=== PATIENT | male | born 1945 | race Caucasian/White ===

== ENCOUNTER 2017-08-20 13:25 | Outpatient (CLI) | payer MEDICARE ==
--- NOTE | 2017-08-20 16:08 | RAD ---
LUMBAR SPINE TWO VIEWS: Comparison: 04-18-14 History: Lumbar spinal stenosis. Low back pain. Prior back surgery. FINDINGS: Pedicle screws are again noted at L4-5. Grade II spondylolisthesis at L4-5 with loss of disc height a nd disc implant does not appear significantly changed. Fracture of the left L5 pedicle screw is uncha nged when compared to films dating back 12-23-12. The degenerative disc changes at the other lumbar lev els also appear stable. IMPRESSION: Post op and degenerative change of the lumbar spine appear stable. POS: YENNY
--- NOTE | 2017-08-20 16:39 | MRI ---
MRI LUMBAR SPINE WITH AND WITHOUT CONTRAST: Date: 08/20/17 HISTORY: Lumbar fusion. Lumbar spinal stenosis. Low back pain with pain radiating down both legs, right greate r than left. COMPARISON: None. TECHNIQUE: Lumbar spine MRI is performed without intravenous Gadolinium administration. Multisequential, multipl mitch imaging is performed. FINDINGS: There are bilateral transpedicular screws at L4 and L5. There is associated metallic susceptibility a rtifact. There is persistent 1.0 cm of anterolisthesis of L4 upon L5. There is 3.0 mm of retrolisthes is of T12 upon L1, 4.0 mm of retrolisthesis of L1 upon L2, and 5.0 mm of retrolisthesis of L2 upon L3 . There is no significant STIR hyperintensity to suggest edema or ligamentous injury of the lumbar ve rtebra. There is mil edema involving the thoracic vertebra, similar to the previous examination and l ikely on the basis of degenerative change. Symmetric signal intensity of the psoas muscles. Small amount of bilateral perinephric fluid is noted. T2 hyperintensity of the left and right renal p yonis are identified. Conus medullaris terminates at the superior aspect of L1. Stable hemangioma at the L2 level. On the postcontrast images, there is no abnormal enhancement with regards to the vertebral bodies. No abnormal enhancement with regards to the thecal sac. Laminectomy defect at L3-L4, L4-L5, and L5-S1 is identified. There is no abnormal enhancement with regard to the cauda equina and conus medullaris. T11-T12: No significant central canal stenosis or foraminal narrowing. T12-L1: No high grade central canal stenosis. Moderate right foraminal narrowing. Left neural foramen is gambino nt. L1-L2: Generalized disc bulge results in mild central canal stenosis. Severe right and mild left foraminal n arrowing. L2-L3: Desiccation with mild loss of disc space height. There are posterior decompressive laminectomy defect s. No high grade central canal stenosis. Severe bilateral neural foraminal narrowing. No significant scar formation. L3-L4: Mild loss of disc space height. There is generalized disc bulge and posterior element hypertrophy. Th ere is moderate central canal stenosis. Posterior decompressive laminectomy changes are noted. On the postcontrast images, evaluation is limited by metallic susceptibility artifact. There is severe bilateral foraminal narrowing. L4-L5: Disc prosthesis is identified. There are decompressive laminectomy changes. Evaluation is limited by metallic susceptibility artifact and patient motion. There appears to be at least moderate, if not mo derate to severe, central canal stenosis. Limited evaluation of the neural foramina due to metallic s usceptibility artifact. L5-S1: There is generalized disc bulge. Limited evaluation of the central spinal canal due to metallic susce ptibility artifact. There appears to be at least mild central canal stenosis. Mild bilateral foramina l narrowing is suspected. Evaluation is limited by metallic susceptibility artifact. IMPRESSION: Extensive postoperative and degenerative changes of the lumbar spine as above. Limited evaluation due to metallic susceptibility artifact. Myelogram may be beneficial. POS: YENNY
== END 2017-08-20 13:26 | disposition home or self-care (01) ==
LOC: TBSIIMAG 13:25
PROVIDERS: ATTEND Neurological Surgery
DX: M48.061 Spinal stenosis, lumbar region without neurogenic claudication (principal); M47.896 Other spondylosis, lumbar region; Z98.890 Other specified postprocedural states
CPT/HCPCS: 72100; 72158

== ENCOUNTER 2017-09-04 06:58 | Day surgery (SDC) | payer MEDICARE ==
[2017-09-03 09:46] VITALS: BMI 29.0
[~2017-09-04 06:58] MED LIST: FLU VACC TS2017-18 (>65YR) 0.5 ML SYRINGE IM ONE
[2017-09-04 08:43] VITALS: BP 140/87; TEMP 98.2
--- NOTE | 2017-09-04 10:22 | RAD ---
TWO VIEWS LUMBAR SPINE: Indication: History of spinal stenosis. Comparison: 08-20-17 FINDINGS: The post-surgical change consistent with laminectomy at L5 and L3 is similar. The fractured pedicle s crew on the left at L5 is stable. The pedicle screw on the right at L4 and L5 demonstrates periimplan t loosening suspicious for loosening which is similar to the appearance on prior exam. Interconnectin g rods posterolateral appear similar. The grade I anterolisthesis of L4 on L5 with interbody bone cag e is similar. There is multilevel advanced disc degenerative disease at L2-3 and L3-4 as well as L1-2 . There is a left total hip prosthesis in place. There is degenerative left knee osteoarthrosis of th e lumbar spine. IMPRESSION: 1. Stable advanced disc degenerative facet osteoarthritic changes of the lumbar spine with post-opera tive changes as above. 2. Instrumentation as above. POS: YENNY
--- NOTE | 2017-09-04 10:24 | RAD ---
LUMBAR SPINAL MYELOGRAM: INDICATION: Lumbar stenosis. TECHNIQUE: Informed consent was obtained. Preprocedure inside sales executive images were performed. A site overlying the left L1-2 interlaminar space was marked. This site was prepped and draped in the usual sterile fashion. Buffered 1% Lidocaine was administered to the overlying subcutaneous tissues. Under fluoroscopic eusebio dance, a 22-gauge spinal needle was advanced into the level of the thecal sac. There is spontaneous return of normal-appearing CSF fluid. Following this, there was 10 cc administration of an Isovue 20 0M contrast solution. The internal stylette was replaced and the needle was removed. The patient to lerated the procedure without difficulty. IMPRESSION: Successful lumbar myelogram. POS: MERI
--- NOTE | 2017-09-04 16:30 | CT ---
CT LUMBAR MYELOGRAM 09/04/17 INDICATION: History of lumbar spinal stenosis. COMPARISON: MRI of the lumbar spine with and without contrast dated 08/20/17 and lumbar spinal radiographs dated 09/04/17. TECHNIQUE: Multiple CT images were obtained of the lumbar spine following intrathecal administration of Isovue 2 00M solution. Please see the separately dictated lumbar myelogram for details concerning the injectio n technique. Axial, coronal and sagittal reformatted images were constructed from the raw data. Comparisons are made with the exams listed above. FINDINGS: As seen on the comparison examination is postoperative change consistent with laminectomies at L3 and L5. There is posterolateral lumbar interbody fusion constructs spanning L4 through L5. The left pedi lang screw at L5 is fractured and displaced from the interconnecting simba. The remaining pedicle screw s appear intact. There is grade II anterolisthesis of L4 on L5. There is slight retrolisthesis of L2 on L3 and L1 on L 2. Conus is seen to terminate at T12-L1. There is vacuum disc phenomenon seen at the T12-L1, L1-2, L2-3, L4-5 and L5-S1 likely related to some ongoing disc instability. There is an intervertebral body cage at L4-5. No definite bridging osseous fusion is seen involving t he bone graft at L4-5. The visualized retroperitoneum demonstrates moderate calcification involving the abdominal aorta. The re is a 1.7 cm cyst involving the superior pole of the left kidney. At L5-S1, there is a broad based disc osteophyte complex. There is advanced facet osteoarthrosis cosme cing severe left and moderate to severe right neural foraminal narrowing. There are also laminectomy changes at L5. At L4-L5, the grade II anterolisthesis of L4 in addition to the broad based pseudobulge and loss of d isc space height at L4-5 induces severe central canal narrowing with minimal passage of the intrathec al contrast beyond this level. There is severe bilateral neural foraminal narrowing. At L3-4, there are laminectomy changes at L3. There is minimal intrathecal contrast at the L3 level. There is severe central canal narrowing seen from facet hypertrophy, ligamentum flavum hypertrophy an d extrathecal fibrosis at L3-4. There is moderate to severe bilateral neural foraminal narrowing. At the L2-3 level, there is a broad based disc osteophyte complex inducing mild central canal narrowi ng with severe bilateral neural foraminal narrowing. At L1-2, there is a broad based disc osteophyte complex and ligamentum flavum hypertrophy inducing mi ld central canal narrowing with moderate right and mild left neural foraminal narrowing. At T12-L1, there is a disc osteophyte complex inducing mild central canal narrowing with mild bilater al neural foraminal narrowing. IMPRESSION: 1. Grade II anterolisthesis at L4-L5 inducing severe central canal narrowing. The anterolisthesi s in addition to the loss of disc space height induces severe bilateral neural foraminal narrowing. 2. Severe central canal narrowing at L3-4 due to broad based disc osteophyte complex, ligamentum flavum hypertrophy, facet hypertrophy and probable epidural scarring. There is also moderate to skylar re neural foraminal narrowing at L3-4 bilaterally. 3. Severe bilateral neural foraminal narrowing at L2-3. 4. Mild central canal narrowing at L1-2 with moderate right neural foraminal narrowing. 5. Moderate to severe right and severe left neural foraminal narrowing at L5-S1. 6. Fractured left L5 pedicle screw. 7. No appreciable osseous incorporation of bone graft posterolaterally at L4-5. POS: YENNY
[2017-09-04] MEDS ORDERED: Iopamidol-M 200 41% 20 ML VIAL ONE (17:35)
== END 2017-09-04 10:00 | disposition home or self-care (01) ==
LOC: RAD 06:58
PROVIDERS: ATTEND Neurological Surgery
PROC: B01B1ZZ Fluoroscopy of Spinal Cord using Low Osmolar Contrast (ICD-10-PCS; principal; 2017-09-04)
DX: M48.061 Spinal stenosis, lumbar region without neurogenic claudication (principal); E78.00 Pure hypercholesterolemia, unspecified; I48.91 Unspecified atrial fibrillation; M81.0 Age-related osteoporosis without current pathological fracture; Z96.611 Presence of right artificial shoulder joint; Z79.1 Long term (current) use of non-steroidal anti-inflammatories (NSAID); Z79.82 Long term (current) use of aspirin; Z79.899 Other long term (current) drug therapy; Z87.891 Personal history of nicotine dependence; Z80.0 Family history of malignant neoplasm of digestive organs
CPT/HCPCS: 62304; 72100; 72132

== ENCOUNTER 2017-10-01 11:13 | Outpatient (CLI) | payer MEDICARE ==
[2017-10-01 12:39] LABS: #Basophils 0.1 thou/uL (0.0-0.2); #Eosinphils 0.3 thou/uL (0.0-0.7); #Lymphocytes 1.7 thou/uL (1.20-3.40); #Monocytes 0.9 thou/uL (0.11-0.59); #Neutrophils 5.3 thou/uL (1.40-6.50); %Basophils 0.8 % (0.0-1.0); %Eosinophils 3.5 % (0.0-10.0); %Lymphocytes 20.3 % (21.0-51.0); %Monocytes 10.6 % (0.0-10.0); %Neutrophils 64.8 % (42.0-75.0); Hemoglobin 14.2 g/dL (14.0-18.0); Mean Corpuscular HGB CONC 34.6 g/dL (32.0-36.0); Mean Corpuscular Hemoglobin 33.6 pg (27.0-31.0); Mean Corpuscular Volume 97.3 fl (80.0-94.0); Mean Platelet Volume 6.4 fL (7.4-10.4); Platelet Count 264 thou/uL (130-400); RBC Distribution Width 10.9 % (11.5-14.5); Red Blood Cell (RBC) Count 4.23 mill/uL (4.70-6.10); White Blood Cell (WBC) Count 8.2 thou/uL (4.8-10.8)
[2017-10-01 12:59] LABS: Anion Gap 11 mmol/L (10-20); BUN (Urea Nitrogen) 22 mg/dL (8.4-25.7); Calc. Creatinine Clearance 0 mL/min (70-130); Calcium 9.8 mg/dL (7.8-10.44); Carbon Dioxide 23 mmol/L (23-31); Chloride 102 mmol/L (98-107); Estimated GFR-MDRD 87; Glucose 100 mg/dL (83-110); Potassium 4.3 mmol/L (3.5-5.1); Sodium 132 mmol/L (136-145)
== END 2017-10-01 11:14 | disposition home or self-care (01) ==
LOC: LABBT 11:13
PROVIDERS: ATTEND Neurological Surgery
DX: Z01.818 Encounter for other preprocedural examination (principal)
CPT/HCPCS: 80048; 85025; 93005; 93010

== ENCOUNTER 2017-10-01 11:15 | Inpatient (IN) | payer MEDICARE ==
[2017-10-01 11:25] VITALS: BMI 28.1
[2017-10-07] MEDS ORDERED: Sodium Chloride 0.9% 10 ML ONE (06:28)
[2017-10-07] MEDS ORDERED: Ketamine 50 MG/ML VIAL ONE (07:06)
[2017-10-07] MEDS ORDERED: Fentanyl 250 MCG/5 ML VIAL ONE (07:12)
[2017-10-07] MEDS ORDERED: ePHEDrine/0.9% NaCl/PF SYRINGE 50 mg/10 ml ONE ×2 (08:37→14:58)
[2017-10-07] MEDS ORDERED: Phenylephrine 10 MG/NS 250 ML 250 ML ONE (08:50)
[2017-10-07] MEDS ORDERED: SUGAMMADEX SODIUM 500 MG/5 ML VIAL ONE (09:30)
[2017-10-07] MEDS ORDERED: Promethazine HCl 25 MG/ML VIAL IM PRN ×2 (09:50→11:58)
[2017-10-07] MEDS ORDERED: Ketorolac Tromethamine 30 MG/ML VIAL IVP PRN (09:50)
[2017-10-07] MEDS ORDERED: Meperidine HCl/PF 25 MG/ML VIAL SLOW IVP PRN (09:50)
[2017-10-07] MEDS ORDERED: Ondansetron HCl/PF 4 MG/2 ML Vial IVP PRN (09:50)
[2017-10-07] MEDS ORDERED: Promethazine HCl 25 MG/ML VIAL SLOW IVP PRN (09:50)
[2017-10-07] MEDS ORDERED: traMADol HCl 50 MG TAB PO PRN ×2 (11:58)
[2017-10-07] MEDS ORDERED: Promethazine HCl 12.5 MG SUPP PR PRN (11:58)
[2017-10-07] MEDS ORDERED: Mag-Al 1200 mg/1200 mg/30 ML UDCUP PO PRN (11:58)
[2017-10-07] MEDS ORDERED: Milk Of Magnesia 30 ML UDCUP PO PRN (11:58)
[2017-10-07] MEDS ORDERED: Promethazine 25 MG TAB PO PRN (11:58)
[2017-10-07] MEDS ORDERED: tiZANidine HCl 4 MG TAB PO PRN (11:58)
[2017-10-07] MEDS ORDERED: Morphine 4 MG/ML Carpuject SLOW IVP PRN (11:58)
[2017-10-07] MEDS ORDERED: Ondansetron HCl/PF 4 MG/2 ML Vial IM PRN (11:58)
[2017-10-07] MEDS ORDERED: HYDROcodone/Acetaminophen 10/325 mg Tablet PO PRN (11:58)
[2017-10-07] MEDS ORDERED: Methocarbamol 500 MG TAB PO PRN (12:10)
[2017-10-07] MEDS ORDERED: HYDROcodone/Acetaminophen 5/325 mg Tablet PO PRN ×2 (12:12)
[2017-10-07] MEDS: HYDROcodone/Acetaminophen 10/325 mg Tablet PO PRN ×3 (12:14→22:02)
--- NOTE | 2017-10-07 12:47 | OP ---
DATE OF PROCEDURE: 10/07/2017 SURGEON: Eliu Purdy M.D. HAND ENDBAND CUTTER: Johann Bhagat M.D. PROCEDURE: Removal of hardware left L4-5, exploration of spinal fusion L4-5, L4-5 laminectomy, cance llous bone chips, BMP, and posterolateral arthrodesis L4-5. PROCEDURE IN DETAIL: The patient was brought into the operating room, intubated. He was rolled in t he prone position on gel-filled chest rolls. The previous incision was reopened and the L3-L5 region was explored. As expected, the left side at L4-5 hardware was loose. Left L5 screw head was broken . The screw head, rods, and nuts were removed. The left L4 screw was similarly removed. We explore d the spinal fusion. It did not seem to be solid, although the hardware at right L4-5 was not mobile . It was also encased in bone. Next, we performed additional efforts at laminectomy and the lateral recess left L4-5, which also was successful. We visualized all neural elements in this area and a c omplete decompression was certainly achieved. Next, we placed a combination of BMP and cancellous leeann ne chips on the bilateral posterolateral surfaces for the purpose of arthrodesis. Vancomycin powder was applied and the wound was then closed in anatomic layers.
[2017-10-07] MEDS: CEFAZOLIN/Water 2 GM/20 ML SYRINGE SLOW IVP SCH ×2 (14:10→22:04)
[2017-10-07] MEDS ORDERED: Lidocaine 1% PF 5 ML VIAL ONE (14:58)
[2017-10-07] MEDS ORDERED: Propofol 200 MG/20 ML VIAL ONE (14:58)
[2017-10-07] MEDS ORDERED: Glycopyrrolate 0.2 MG/ML 5 ML SYRINGE ONE (14:58)
[2017-10-07] MEDS ORDERED: PHENYLEPHRINE-NS 100 MCG/ML 10 ML SYRINGE ONE (14:58)
--- NOTE | 2017-10-07 18:46 | PDOC.PN ---
- Subjective Encounter Start Date: 10/07/17 Encounter Start Time: 18:30 Subjective: Consult for med mgmt s/p lumbar hardware removal and subsequent laminectomy -: arthrodesis. Hx reviewed, labs, radiographs. Feels well overall and no CP -: SOB. - Objective MAR Reviewed: Yes Vital Signs & Weight: Vital Signs (12 hours) Temp Pulse Resp BP Pulse Ox 10/07/17 16:00 97.7 F 65 18 136/85 94 L 10/07/17 10:30 97.8 F 66 18 143/83 H 96 Weight Weight 185 lb 6.526 oz Additional Labs: Laboratory Tests 10/01/17 10/01/17 12:15 12:15 WBC 8.2 Hgb 14.2 Hct 41.2 L Plt Count 264 Sodium 132 L Potassium 4.3 Chloride 102 Carbon Dioxide 23 Anion Gap 11 BUN 22 Creatinine 0.86 Glucose 100 Calcium 9.8 EKG Reviewed by me: Yes (NSR with bradycardia, 1st degree AVB) Phys Exam - Physical Examination Constitutional: NAD HEENT: PERRLA, oral pharynx no lesions Neck: no JVD, supple Respiratory: no wheezing, clear to auscultation bilateral Cardiovascular: RRR Gastrointestinal: soft, non-tender, no distention, positive bowel sounds Musculoskeletal: no edema, pulses present Neurological: normal sensation, moves all 4 limbs Psychiatric: A&O x 3 Skin: normal turgor, cap refill <2 seconds Dx/Plan (1) HTN (hypertension) Code(s): I10 - ESSENTIAL (PRIMARY) HYPERTENSION Status: Chronic Qualifiers: Hypertension type: essential hypertension Qualified Code(s): I10 - Essential (primary) hypertension Comment: Resume home BP regimen and monitor clinically (2) Atrial fibrillation Code(s): I48.91 - UNSPECIFIED ATRIAL FIBRILLATION Status: Resolved Comment: Current SR, continue Tambocor 50mg BID (3) DJD (degenerative joint disease), lumbar Code(s): M47.816 - SPONDYLOSIS W/O MYELOPATHY OR RADICULOPATHY, LUMBAR REGION Status: Chronic (4) Neurogenic claudication due to lumbar spinal stenosis Status: Chronic Comment: s/p hardware removal, laminectomy and arthrodesis - Plan PT/OT, long term care social worker, out of bed/ambulate, DVT proph w/SCDs Stable overall -: Continue home BP regimen -: Continue Lisinopril, Amlodipine, Atenolol -: Continue Tambocor 50mg BID -: Pain control * Thank you for the consult. Will continue to follow with primary service.
[2017-10-07] MEDS: Dorzolamide HCl/Timolol Maleate 2%/0.5% Ophth Soln 10 ml Bottle EA EYE SCH (20:43)
[2017-10-07] MEDS: Lisinopril 20 MG TAB PO SCH (20:44)
[2017-10-07] MEDS ORDERED: Gabapentin 300 MG CAP PO SCH (21:00)
[2017-10-07] MEDS ORDERED: Atorvastatin Calcium 10 MG TAB PO SCH (21:00)
[2017-10-07] MEDS ORDERED: [UNRECOGNIZED DRUG - OTHER] PO SCH (21:00)
[2017-10-07] MEDS: Flecainide 50 MG TAB PO SCH (21:43)
[2017-10-08 04:34] VITALS: TEMP 97.7
[2017-10-08] MEDS ORDERED: Amlodipine 10 MG TAB PO SCH (09:00)
[2017-10-08] MEDS ORDERED: Multivitamin W/ Minerals 1 TAB PO SCH (09:00)
[2017-10-08] MEDS ORDERED: Ascorbic Acid 500 mg Chewable Tablet PO SCH (09:00)
[2017-10-08] MEDS ORDERED: Calcium Carbonate + Vit D 1 TAB PO SCH (09:00)
[2017-10-08] MEDS ORDERED: Atenolol 50 MG TAB PO SCH (09:00)
[2017-10-08] MEDS ORDERED: Loratadine 10 MG TAB PO SCH (09:00)
[2017-10-08] MEDS ORDERED: Fish Oil 1,000 MG CAP PO SCH (09:00)
[2017-10-08] MEDS ORDERED: Hydrochlorothiazide 25 MG TAB PO SCH (09:00)
[2017-10-08] MEDS ORDERED: POTASSIUM 99 MG PO SCH (09:00)
[2017-10-08 09:23] VITALS: BP 101/71
[2017-10-08] MEDS: Lisinopril 20 MG TAB PO SCH (09:40)
[2017-10-08] MEDS: Flecainide 50 MG TAB PO SCH (09:48)
[2017-10-08] MEDS: Dorzolamide HCl/Timolol Maleate 2%/0.5% Ophth Soln 10 ml Bottle EA EYE SCH (09:48)
[2017-10-08] MEDS: HYDROcodone/Acetaminophen 10/325 mg Tablet PO PRN (10:44)
== END 2017-10-08 11:54 | disposition home or self-care (01) | DRG 460 ==
LOC: SURG A 10-07 05:51
PROVIDERS: ADMIT Neurological Surgery; ATTEND Neurological Surgery
PROC: 0SG0071 Fusion of Lumbar Vertebral Joint with Autologous Tissue Substitute, Posterior Approach, Posterior Column, Open Approach (ICD-10-PCS; principal; 2017-10-07)
PROC: 0QP004Z Removal of Internal Fixation Device from Lumbar Vertebra, Open Approach (ICD-10-PCS; 2017-10-07)
PROC: 00NY0ZZ Release Lumbar Spinal Cord, Open Approach (ICD-10-PCS; 2017-10-07)
DX: M48.062 Spinal stenosis, lumbar region with neurogenic claudication (principal); I48.91 Unspecified atrial fibrillation; T84.226A Displacement of internal fixation device of vertebrae, initial encounter; M43.16 Spondylolisthesis, lumbar region; I10 Essential (primary) hypertension; E78.5 Hyperlipidemia, unspecified; M47.816 Spondylosis without myelopathy or radiculopathy, lumbar region
CPT/HCPCS: 76001; A4216; C1713; G8978-GP-CK; G8979-GP-CK; G8980-GP-CK; J0131; J2001; J2704; J3010; J3370; J3490

== ENCOUNTER 2017-10-21 15:22 | Outpatient (CLI) | payer MEDICARE ==
--- NOTE | 2017-10-21 15:43 | RAD ---
TWO VIEWS OF THE LUMBAR SPINE: Date: 10-21-17 Comparison: 09-04-17 History: Evaluate spine following surgery. Lumbar stenosis with neurogenic claudication. FINDINGS: Vertically oriented cutaneous aleshia overlie the L2, L3, L4 and L5 levels. Since the prior examinati on, left sided post-operative hardware has been removed at the L4 level. A portion of a pedicle screw at L5 persists on the left. There is a right sided L4 and L5 pedicle screw with a vertically oriente d interlocking simba. There is multilevel prominent disc space narrowing seen throughout the lumbar spine with prominent ri ght lateral osteophyte formation at L2-3 and L3-4. Lateral imaging demonstrate anterolisthesis of L4 on L5 measuring approximately 1.9 cm, slightly more prominent than on the prior exam. There is a punctate radiopaque density posterior to the L4 vertebr al body which is associated with a previously noted disc device. Bilateral laminectomy changes are present at L2 through L5 levels. IMPRESSION: Post-operative and degenerative changes within the lumbar spine as detailed above. POS: YENNY
== END 2017-10-21 15:23 | disposition home or self-care (01) ==
LOC: TBSIIMAG 15:22
PROVIDERS: ATTEND Physician Assistant
DX: M48.062 Spinal stenosis, lumbar region with neurogenic claudication (principal); M47.816 Spondylosis without myelopathy or radiculopathy, lumbar region; Z98.890 Other specified postprocedural states
CPT/HCPCS: 72100

== ENCOUNTER 2017-11-26 13:33 | Outpatient (CLI) | payer MEDICARE ==
--- NOTE | 2017-11-26 15:29 | RAD ---
LUMBAR SPINE 2 VIEWS: Date: 11/26/17 HISTORY: Low back pain. Surgery. COMPARISON: 10/21/17. FINDINGS: Five lumbar-type vertebrae are again demonstrated with leftward convex rotatory scoliotic curvature. Right pedicle screws at the L4-5 level with vertical simba and a left L5 pedicle screw remain in place. Spondylolisthesis at the postoperative level is stable. One of the metallic markers associated with interbody fusion material again projects over the posterior inferior aspect of the L4 vertebral body. Mild chronic compression of the L2 and L3 vertebral bodies is stable. Disc space narrowing and minima l degenerative retrolisthesis are again evident at the L1-2 and L2-3 levels. Prominent osteophytosis. Calcification overlies the arterial structures. IMPRESSION: 1. Stable postoperative and degenerative changes of the lumbar spine. One of the metallic markers as sociated with interbody fusion material remains projected over the posterior inferior aspect of the L 4 vertebral body. 2. Atherosclerosis. POS: [facility]
== END 2017-11-26 13:34 | disposition home or self-care (01) ==
LOC: TBSIIMAG 13:33
PROVIDERS: ATTEND Neurological Surgery
DX: M48.061 Spinal stenosis, lumbar region without neurogenic claudication (principal); M47.896 Other spondylosis, lumbar region; I70.90 Unspecified atherosclerosis; Z98.1 Arthrodesis status
CPT/HCPCS: 72100

== ENCOUNTER 2018-03-16 12:54 | Outpatient (CLI) | payer MEDICARE ==
--- NOTE | 2018-03-16 15:04 | RAD ---
LUMBAR SPINE TWO VIEWS: Date: 03-16-18 Comparison: 11-26-17 History: Lumbar radiculopathy, prior lumbar spine surgery. FINDINGS: There is an incompletely imaged left hip arthroplasty. Two punctate metallic densities project over t he L4-5 intervertebral disc space anteriorly, stable. There is also a punctate metallic density proje cting posterior to the L4 vertebral body. These findings are unchanged. This suggests a disc prosthes is with posterior displacement, stable. A portion of the pedicle screw is present on the left at L5. L4 and L5 pedicle screws with a vertically oriented interlocking simba are noted on the left. There is anterolisthesis of L4 on L5 measuring 1.7 cm. There is multilevel degenerative change within the lumbar spine with disc space narrowing and degenerative endplate sclerosis from L1-2 through L5- S1. No acute osseous abnormality. There is atherosclerotic calcification of the abdominal aorta. IMPRESSION: Stable post-operative and degenerative changes of the lumbar spine as detailed above. As before, meta llic marker associated with disc device projects posterior to the L4 vertebral body. POS: YENNY
== END 2018-03-16 12:55 | disposition home or self-care (01) ==
LOC: TBSIIMAG 12:54
PROVIDERS: ATTEND Neurological Surgery
DX: M47.26 Other spondylosis with radiculopathy, lumbar region (principal); Z98.1 Arthrodesis status
CPT/HCPCS: 72100

== ENCOUNTER 2019-08-12 07:08 | Day surgery (SDC) | payer MEDICARE ==
[2019-08-11 10:26] VITALS: BMI 28.1
--- NOTE | 2019-08-12 09:02 | RAD ---
LUMBAR MYELOGRAM: COMPARISON: 09/04/2017. HISTORY: Lumbar stenosis. Low back pain. EXPOSURE: 0.7 minutes. 2744.0 mGy*^m2. FINDINGS: Two-view turbo electric operator lumbar spine radiograph demonstrates bilateral transpedicular screws at L5 and a right -sided transpedicular screw at L4. There is periarticular lucency with regards to the right transpedicular screw at L4. Vertical stabilization simba along the right aspect of the L4-L5 level. A s crew fragment is noted at the L5 level. Disc prosthesis at L4-L5. Multilevel vacuum disc phenomenon and loss of disc space height. There is no evidence of a fracture. Spondylolisthesis: L2-L3: 2 mm retrolisthesis. L4-L5: 1.2 cm of anterolisthesis. Successful lumbar puncture for intrathecal contrast administration. A total of 9 cc of Isovue-M 200 c ontrast was administered at the L3-L4 level. There are no immediate or postprocedure complications. TECHNIQUE: Consent was obtained to perform a lumbar puncture for intrathecal contrast administration. The patien t's back was evaluated. The L3-L4 level was deemed appropriate. The skin was prepped and draped in sterile fashion. 1% lidocaine, buffered with sodium bicarbonate was used for local anesthesia. Under fluoroscopic guidance, a 22-gauge spinal needle was advanced into the CSF space. There is flow of CSF to the hub of the needle. A total of 9 cc of Isovue M200 contrast was administered intrathecally. Patient tolerated the procedure well. No immediate or postprocedure complications. IMPRESSION: Successful lumbar puncture for lumbar myelogram. Refer to separate lumbar CT report for further detai l. Transcribed Date/Time: 08/12/2019 9:28 AM
--- NOTE | 2019-08-12 10:00 | CT ---
POSTMYELOGRAM LUMBAR SPINE CT: HISTORY: Low back pain. Lumbar stenosis. COMPARISON: 09/04/2017. FINDINGS: Visualized paraspinal soft tissues are unremarkable. There are postoperative changes in the posterior midline paraspinal muscles. Atherosclerosis of a nonaneurysmal aorta. Visualized solid organs are grossly unremarkable. Exophytic hypodensity emanating from the right renal cortex has an attenuation coefficient of 14 Houn sfield units and may represent a complex cyst. The lesion is noted on previous exam and is unchanged in size. Currently, the lesion measures 1.5 x 1.4 cm. Five lumbar-type vertebrae. Lumbar spine vertebral body height is maintained. There is no fracture. S table mild leftward curvature lumbar spine Vacuum disc phenomenon from T12-L1 down to L5-S1. Note, there is a disc prosthesis at the L4-L5 level . Unilateral right-sided transpedicular screw with periarticular lucency at L4. Bilateral transpedicula r screws at L5. The left screw does not have an associated stabilization simba. The screw at L5 is a fragment of a screw. Conus medullaris terminates at the mid L1 level. Spondylolisthesis: L1-L2: 2.2 mm of retrolisthesis. L2-L3: 4.6 mm of retrolisthesis. L3-L4: 3.4 mm of anterolisthesis. There do appear to be bilateral pars defects at L4. There is vacuum joint phenomenon involving both sacroiliac joints. Visualized bony pelvis and sacrum are unremarkable. Neural foramina of the sacrum are preserved. T11-T12: No significant central canal stenosis or significant neural foraminal narrowing. T12-L1: Vacuum disc phenomenon. Broad-based disc bulge with resultant minimal central canal stenosis. Moderate to severe right neural foraminal narrowing. Moderate left foraminal narrowing. L1-L2: Vacuum disc phenomenon. Broad-based disc bulge results in mild central canal stenosis. Severe right neural foraminal narrowing. Moderate left foraminal narrowing. L2-L3: Vacuum disc phenomenon. Broad-based disc osteophyte complex. Mild central canal stenosis. Felipa re bilateral neural foraminal narrowing. L3-L4: Posterior laminectomy defect. Broad-based disc bulge and posterior element hypertrophy result in severe central canal stenosis. Moderate to severe bilateral neural foraminal narrowing. L4-L5: Disc prosthesis. Posterior laminectomy defect. Presumed postsurgical scar tissue at the operat chip site. No high-grade central canal stenosis. There may be some narrowing of the right subareolar zone secondary to disc osteophyte complex. Moderate to severe bilateral neural foraminal narrowing. L5-S1: Vacuum disc phenomenon. Moderate to severe narrowing of the thecal sac predominantly due to ep idural lipomatosis. There is encroachment upon the left and right subareolar zone secondary to broad-based disc osteophyte complex. No significant obscuration of either traversing S1 nerve root. M ild to moderate right neural foraminal narrowing. Moderate to severe left neural foraminal narrowing. IMPRESSION: 1. Varying degrees of central canal stenosis and neural foraminal narrowing as described above. 2. Post surgical changes as described above. 3. Vacuum disc phenomenon as described above. 4. Spondylolisthesis as detailed above. Transcribed Date/Time: 08/12/2019 10:22 AM
[2019-08-12] MEDS ORDERED: Iopamidol-M 200 41% 20 ML VIAL ONE (11:56)
== END 2019-08-12 09:55 | disposition home or self-care (01) ==
LOC: RAD 07:08
PROVIDERS: ATTEND Neurological Surgery
PROC: B02B1ZZ Computerized Tomography (CT Scan) of Spinal Cord using Low Osmolar Contrast (ICD-10-PCS; principal; 2019-08-12)
DX: M48.062 Spinal stenosis, lumbar region with neurogenic claudication (principal); M43.16 Spondylolisthesis, lumbar region; M47.816 Spondylosis without myelopathy or radiculopathy, lumbar region; I10 Essential (primary) hypertension; I48.91 Unspecified atrial fibrillation; E78.00 Pure hypercholesterolemia, unspecified; Z79.82 Long term (current) use of aspirin; Z79.899 Other long term (current) drug therapy
CPT/HCPCS: 62304; 72132; Q9966

== ENCOUNTER 2019-08-30 10:38 | Outpatient (CLI) | payer MEDICARE ==
--- NOTE | 2019-08-30 11:38 | RAD ---
LUMBAR SPINE FOUR VIEWS WEIGHT BEARING: HISTORY: Lumbar spondylosis. FINDINGS: Five lumbar type vertebrae. Mild leftward curvature of the lumbar spine. Unilateral right-sided trans pedicular screw at L4-L5 and a left-sided transpedicular screw at L5. There is a right-sided vertical stabilization simba. There appears to be perihardware lucency involving the right screw at L4 and L5. Laminectomy defect at L3, L4 and L5. Disc prosthesis at L4-L5. Neutral position: L4-L5: 1.1 mm of anterolisthesis. Flexion: 1.4 mm of anterolisthesis. Extension: 1.3 mm of anterolisthesis. Severe loss of disc space height and osteophyte formation throughout the lumbar spine. The visualized sacrum and bony pelvis are intact. Left hip arthroplasty is noted. Atherosclerosis of a nonaneurysmal aorta. IMPRESSION: 1. Grade 2 anterolisthesis of L4 upon L5 which worsens upon extension and flexion. 2. Perihardware lucency involving fusion hardware as described above. Transcribed Date/Time: 08/30/2019 12:43 PM
== END 2019-08-30 10:39 | disposition home or self-care (01) ==
LOC: BICRAD 10:38
PROVIDERS: ATTEND Nurse Practitioner Family
DX: M43.06 Spondylolysis, lumbar region (principal); Z98.1 Arthrodesis status
CPT/HCPCS: 72120

== ENCOUNTER 2020-03-29 05:21 | Outpatient (CLI) | payer MEDICARE, OTHER ==
[2020-03-29 13:56] LABS: #Basophils 0.1 thou/uL (0.0-0.2); #Eosinphils 0.2 thou/uL (0.0-0.7); #Lymphocytes 1.7 thou/uL (1.20-3.40); #Neutrophils 6.2 thou/uL (1.40-6.50); %Eosinophils 2.7 % (0.0-10.0); %Lymphocytes 18.3 % (21.0-51.0); %Monocytes 10.4 % (0.0-10.0); %Neutrophils 67.6 % (42.0-75.0); Hemoglobin 15.9 g/dL (14.0-18.0); Mean Corpuscular HGB CONC 33.8 g/dL (32.0-36.0); Mean Corpuscular Hemoglobin 33.1 pg (27.0-31.0); Mean Corpuscular Volume 97.7 fL (78.0-98.0); Mean Platelet Volume 7.4 fL (7.4-10.4); Platelet Count 305 thou/uL (130-400); RBC Distribution Width 11.2 % (11.5-14.5); Red Blood Cell (RBC) Count 4.81 mill/uL (4.70-6.10); White Blood Cell (WBC) Count 9.1 thou/uL (4.8-10.8)
[2020-03-29 14:02] LABS: Bacteria/HPF None Seen HPF (None Seen); Bilirubin Negative (Negative); Blood, Urine Negative (Negative); Clarity Clear (Clear); Glucose, Urine (Dipstick) Normal (Negative); Ketone, Urine Negative (Negative); Leukocyte Negative Leu/uL (Negative); Nitrite Negative (Negative); Protein, Urine (Dipstick) 20 mg/dL (Neg-Trace); RBC/HPF 0-3 HPF (0-3); Specific Gravity, Urine 1.025 (1.002-1.036); Squamous Epithelial None Seen HPF (0-3); Urobilinogen Normal mg/dL (Less than 2); WBC/HPF 0-3 HPF (0-3); pH, Urine 7.5 (5.0-9.0)
[2020-03-29 14:03] LABS: Prothrombin Time 13.6 sec (12.0-14.7)
[2020-03-29 14:09] LABS: Anion Gap 14 mmol/L (10-20); BUN (Urea Nitrogen) 26 mg/dL (8.4-25.7); Calc. Creatinine Clearance 0 mL/min (70-130); Calcium 10.1 mg/dL (7.8-10.44); Carbon Dioxide 24 mmol/L (23-31); Chloride 103 mmol/L (98-107); Estimated GFR-MDRD Greater than 90; Glucose 116 mg/dL (83-110); Potassium 4.4 mmol/L (3.5-5.1); Sodium 137 mmol/L (136-145)
--- NOTE | 2020-03-30 09:13 | EKG ---
Test Reason : Blood Pressure : / mmHG Vent. Rate : 066 BPM Atrial Rate : 250 BPM P-R Int : 000 ms QRS Dur : 090 ms QT Int : 446 ms P-R-T Axes : 000 -51 035 degrees QTc Int : 467 ms Atrial fibrillation Left anterior fascicular block Abnormal ECG When compared with ECG of 01-OCT-2017 12:13, Atrial fibrillation has replaced Sinus rhythm Confirmed by JASON MCGOVERN, SJosefa ([id number]) on 03/30/2020 9:13:18 AM Referred By: Confirmed By:DR. Madhavi GOMEZ MD
[2020-03-30 12:52] LABS: SARS-CoV-2 MS2 Positive; SARS-CoV-2 N Gene Negative; SARS-CoV-2 S Gene Negative; SARS-CoV-2 orf1ab Negative
== END 2020-03-29 05:22 | disposition home or self-care (01) ==
LOC: LABBT 05:21
PROVIDERS: ATTEND Orthopaedic Surgery
DX: Z01.818 Encounter for other preprocedural examination (principal); Z11.59 Encounter for screening for other viral diseases; T84.091A Other mechanical complication of internal left hip prosthesis, initial encounter
CPT/HCPCS: 80048; 81001; 85025; 85610; 93005; U0003; 87635; 93010

== ENCOUNTER 2020-03-29 11:15 | Inpatient (IN) | payer MEDICARE ==
[2020-03-27 13:50] VITALS: BMI 27.3
[2020-04-03] MEDS ORDERED: Tranexamic Acid 1,000 MG/10 ML VIAL ONE (10:11)
[2020-04-03] MEDS ORDERED: Vancomycin 1.5 GRAM/300 ML BAG ONE (10:11)
[2020-04-03] MEDS ORDERED: Sodium Chloride 0.9% 100 ML ONE (10:11)
[2020-04-03] MEDS ORDERED: Lidocaine 2% Jelly 5 ML TUBE ONE (11:48)
[2020-04-03] MEDS ORDERED: Fentanyl 100 MCG/2 ML VIAL ONE (11:48)
[2020-04-03] MEDS ORDERED: Bupivacaine 0.25% HCL 30 ML VIAL ONE (12:08)
[2020-04-03] MEDS ORDERED: Acetaminophen 500 MG TAB PO PRN (12:38)
[2020-04-03] MEDS ORDERED: Ondansetron PF 4 MG/2 ML Vial IVP PRN ×2 (12:45→12:52)
[2020-04-03] MEDS ORDERED: Promethazine HCl 25 MG/ML VIAL IM PRN ×2 (12:45→12:52)
[2020-04-03] MEDS ORDERED: Naloxone HCl 0.4 mg/ml Vial IVP PRN (12:45)
[2020-04-03] MEDS ORDERED: Bupivacaine 0.25% 10 ML VIAL EPIDURAL PRN (12:45)
[2020-04-03] MEDS ORDERED: fentaNYL Citrate/PF 500 MCG, Bupivacaine 10 ML in Sodium Chloride 0.9% 80 ML EPIDURAL SCH (12:45)
[2020-04-03] MEDS ORDERED: Ketorolac Tromethamine 30 MG/ML VIAL IVP PRN (12:45)
[2020-04-03] MEDS ORDERED: HYDROcodone/Acetaminophen 5/325 mg Tablet PO PRN (12:45)
[2020-04-03] MEDS ORDERED: diphenhydrAMINE 50 MG/ML VIAL IVP PRN (12:45)
[2020-04-03] MEDS ORDERED: traMADol HCl 50 MG TAB PO PRN ×2 (12:45)
[2020-04-03] MEDS ORDERED: Naloxone HCl 0.4 mg/ml Vial IV PRN (12:45)
[2020-04-03] MEDS ORDERED: Promethazine HCl 25 MG SUPP PR PRN (12:45)
[2020-04-03] MEDS ORDERED: diphenhydrAMINE 25 MG CAP PO PRN ×2 (12:45→12:52)
[2020-04-03] MEDS ORDERED: Hydrocerin (Eucerin) Cream 120 gm Jar TOP PRN (12:45)
[2020-04-03] MEDS ORDERED: Zolpidem Tartrate 5 MG TAB PO PRN ×2 (12:45→12:52)
[2020-04-03] MEDS ORDERED: diphenhydrAMINE 50 MG/ML VIAL IM PRN (12:45)
[2020-04-03] MEDS ORDERED: Acetaminophen 325 MG TAB PO PRN (12:52)
[2020-04-03] MEDS ORDERED: HYDROcodone/Acetaminophen 10/325 mg Tablet PO PRN ×2 (12:52)
[2020-04-03] MEDS ORDERED: Benzonatate 100 MG CAP PO PRN (12:54)
[2020-04-03] MEDS ORDERED: Glycopyrrolate 0.2 MG/ML 5 ML SYRINGE ONE (12:58)
[2020-04-03] MEDS ORDERED: EPHEDRINE 25 MG/5 ML SYRINGE ONE (12:58)
[2020-04-03] MEDS ORDERED: Lidocaine 1.5% w/Epi 1:200K 30 ML VIAL (Epid Use) ONE (12:58)
[2020-04-03] MEDS ORDERED: Lidocaine 1% PF 5 ML VIAL ONE (12:58)
[2020-04-03] MEDS ORDERED: Dexamethasone 20 MG/5 ML VIAL ONE (12:58)
[2020-04-03] MEDS ORDERED: Rocuronium Bromide 10 MG/ML (10ML VIAL) ONE (12:58)
[2020-04-03] MEDS ORDERED: PHENYLEPHRINE-NS 100 MCG/ML 10 ML SYRINGE ONE (12:58)
[2020-04-03] MEDS ORDERED: PROPOFOL 200 MG/20 ML VIAL ONE (12:58)
[2020-04-03] MEDS ORDERED: Methocarbamol 500 MG TAB PO PRN (13:14)
[2020-04-03] MEDS ORDERED: Loratadine 10 MG TAB PO PRN (13:15)
[2020-04-03] MEDS ORDERED: Ondansetron HCl/PF 4 MG/2 ML Vial IVP PRN (15:10)
--- NOTE | 2020-04-03 15:58 | RAD ---
XR Hip Lt 2-3 View History: Postop total hip Comparison: None. Findings: Satisfactory appearance left total hip arthroplasty. Expected postoperative gas and edema. Impression: Satisfactory postoperative appearance.
[2020-04-03] MEDS ORDERED: CEFAZOLIN 2 GM in Premix Bag 1 BAG IVPB SCH (18:00)
[2020-04-03] MEDS: Sodium Chloride 0.9% 1,000 ML IV SCH ×2 (18:51→23:19)
[2020-04-03] MEDS: Aspirin 81 mg Enteric Coated Tablet PO SCH (20:34)
[2020-04-03] MEDS: Atorvastatin Calcium 10 MG TAB PO SCH (20:34)
[2020-04-03] MEDS: Gabapentin 300 MG CAP PO SCH (20:34)
[2020-04-03] MEDS: CEFAZOLIN 2 GM in Premix Bag 1 BAG IVPB SCH (20:35)
[2020-04-03] MEDS: DorzolamidE/Timolol 2%/0.5% Ophth Soln 10 ml Bottle R EYE SCH (20:35)
[2020-04-03] MEDS ORDERED: Lisinopril 20 MG TAB PO SCH (21:00)
[2020-04-04] MEDS: Sodium Chloride 0.9% 1,000 ML IV SCH ×2 (01:30→10:56)
[2020-04-04] MEDS: CEFAZOLIN 2 GM in Premix Bag 1 BAG IVPB SCH (04:08)
[2020-04-04 05:18] LABS: #Monocytes 1.2 thou/uL (0.11-0.59); #Neutrophils 9.9 thou/uL (1.40-6.50); %Basophils 0.3 % (0.0-1.0); %Eosinophils 0.1 % (0.0-10.0); %Lymphocytes 8.4 % (21.0-51.0); %Monocytes 9.5 % (0.0-10.0); %Neutrophils 81.7 % (42.0-75.0); Hemoglobin 13.2 g/dL (14.0-18.0); Mean Corpuscular Hemoglobin 32.4 pg (27.0-31.0); Mean Platelet Volume 7.5 fL (7.4-10.4); Platelet Count 237 thou/uL (130-400); RBC Distribution Width 11.1 % (11.5-14.5); Red Blood Cell (RBC) Count 4.08 mill/uL (4.70-6.10); White Blood Cell (WBC) Count 12.1 thou/uL (4.8-10.8)
[2020-04-04 05:41] LABS: Anion Gap 14 mmol/L (10-20); BUN (Urea Nitrogen) 17 mg/dL (8.4-25.7); Calc. Creatinine Clearance 92 mL/min (70-130); Calcium 9.1 mg/dL (7.8-10.44); Carbon Dioxide 22 mmol/L (23-31); Chloride 103 mmol/L (98-107); Estimated GFR-MDRD Greater than 90; Glucose 117 mg/dL (83-110); Magnesium 1.6 mg/dL (1.6-2.6); Potassium 4.5 mmol/L (3.5-5.1); Sodium 134 mmol/L (136-145)
[2020-04-04] MEDS: Ascorbic Acid 500 mg Chewable Tablet PO SCH (08:45)
[2020-04-04] MEDS: Calcium Carbonate + Vit D 250 MG TAB PO SCH (08:45)
[2020-04-04] MEDS: DorzolamidE/Timolol 2%/0.5% Ophth Soln 10 ml Bottle R EYE SCH ×2 (08:45→20:52)
[2020-04-04] MEDS: Ferrous Gluconate 324 MG TAB PO SCH ×2 (08:45→20:53)
[2020-04-04] MEDS: Potassium Chloride 10 MEQ TAB PO SCH (08:46)
[2020-04-04] MEDS: Aspirin 81 mg Enteric Coated Tablet PO SCH ×2 (08:46→20:53)
[2020-04-04] MEDS: Senokot S 8.6-50 MG TAB PO SCH ×2 (08:46→20:53)
[2020-04-04] MEDS ORDERED: Aspirin 325 MG TAB PO SCH (09:00)
[2020-04-04] MEDS ORDERED: Atenolol 50 MG TAB PO SCH (09:00)
[2020-04-04] MEDS ORDERED: Flecainide 50 MG TAB PO SCH (09:00)
[2020-04-04] MEDS ORDERED: Hydrochlorothiazide 25 MG TAB PO SCH (09:00)
[2020-04-04] MEDS ORDERED: Multivitamin W/ Minerals 1 TAB PO SCH ×2 (09:00)
[2020-04-04] MEDS ORDERED: hydrALAZINE 20 MG/ML VIAL SLOW IVP PRN (09:53)
[2020-04-04] MEDS ORDERED: Labetalol HCl 100 MG/20 ML VIAL SLOW IVP PRN (09:53)
[2020-04-04] MEDS ORDERED: Magnesium 2 GM/50 ML 2 GM in Premix Bag 1 BAG IVPB SCH ×2 (11:15→16:15)
[2020-04-04] MEDS ORDERED: Magnesium Sulfate 4 GM in Sodium Chloride 0.9% 250 ML 250 ML IVPB SCH (16:00)
[2020-04-04] MEDS ORDERED: Lorazepam 0.5 MG TAB PO PRN (16:05)
--- NOTE | 2020-04-04 16:13 | CON ---
DATE OF CONSULTATION: 04/04/2020 PRIMARY CARE DOCTOR: Dr. Urbano Buitrago. PRIMARY SURGEON: Dr. Hall. PRIMARY MATCH MAKER: Dr. Jazmine Duncan. REASON FOR CARDIOLOGY CONSULT: Recurrent atrial fibrillation/new onset of atrial flutter. HISTORY OF PRESENT ILLNESS: Mr. Emerson is a very present 74-year-old male with a significant history of paroxysmal atrial fibrillation, hypertension, hyperlipidemia, chronic back pain, status post multiple knee, hip, neck and back surgery. The patient was relatively doing well. The patient has a long history of paroxsymal atrial fibrillation. However, the patient has been in sinus rhythm for a couple of years. He has been on aspirin only for a couple of years or so. When the patient followed up with Dr. Duncan office in January 2020, he denied any chest pain, heaviness, tightness, shortness of breath, or any other cardiac complaints. He underwent left hip revision on April 03, 2020. During the procedure, per patient, the patient's anesthesiologist and Dr. Hall noticed that the patient's EKG had started showing intermittent atrial fibrillation. During the episodes, the patient denied any chest pain, heaviness, tightness, dizziness, lightheadedness, or any other cardiac complaints, but due to this finding, a Cardiology consult was ordered. According to the patient's vital sign record in the chart, the patient's heart rate has been stable. The patient denied palpitation , fluttering in his chest, dizziness, lightheadedness or any other cardiac complaints at this moment. The patient had echocardiograms done, the last one was in November 2018, with EF 50 -55% and mild LVH. Trace mitral valve regurgitation, mild aortic valve insufficiency , mild tricuspid regurgitation, and mild pulmonary insufficiency. The patient had a stress test done in November 2018, with no ischemia but with mild inferior hypokinesis and a [id number] size inferior deficit, which improves slightly in the stress imaging. It could be likely EF 61%. The patient had atrial fibrillation cardioversion done in April 2006. MEDICAL HISTORY: 1. Paroxysmal atrial fibrillation. 2. Hypertension. 3. Hyperlipidemia. 4. Spinal stenosis. PAST SURGICAL HISTORY: Atrial fibrillation cardioversion in 2005, multiple hip, knee, neck, back surgery. FAMILY HISTORY: The patient's father due to colon cancer and the patient's mother has a history of renal failure. SOCIAL HISTORY: The patient is . He has a child who is living and well. He is an ex-smoker, but he quit more than 10 years ago. He has ETOH occasionally. He denied any illicit drug abuse. He does not exercise much at this moment due to the chronic back and knee pain. ALLERGIES: HE HAS NO KNOWN DRUG ALLERGIES. HOME MEDICATION: 1. Sulindac 200 mg every morning. 2. Claritin 10 mg once a day as needed. 3. Gabapentin 600 mg once a day. 4. Lisinopril 20 mg twice a day. 5. Flecainide 50 mg once a day. 6. Simvastatin 20 mg once a day. 7. Hydrochlorothiazide 25 mg one in the morning. 8. Aspirin 325 mg once a day. 9. Atenolol 50 mg once a day. 10. Multivitamin 1 tablet once a day. 11. Vitamin C 500 mg once a day. 12. Calcium with vitamin D3 one tablet once a day. 13. Potassium 5 mEq once a day. 14. [place]-3 1 tablet once a day. 15. Glucosamine 1 tablets twice a day. 16. Methocarbamol 750 mg twice a day as needed. 17. Timolol and dorzolamide one drop right eye twice a day. 18. [place] 10/325 one tablet every 6 hours as needed. 19. Tessalon 100 mg one every 8 hours as needed. REVIEW OF SYSTEMS: 12-point review of systems negative unless otherwise mentioned in HPI. PHYSICAL EXAMINATION: VITAL SIGNS: Blood pressure 106/72, heart rate 86, temperature 97.5, respiratory rate 14, O2 saturation 95% on room air. GENERAL: The patient is alert and oriented x4, not in acute distress. HEENT: Normocephalic, atraumatic. EYES: Extraocular muscle movement intact. ENT AND MOUTH: Oral and nasal mucosa moist without lesion. NECK: Supple. Normal range of motion. No JVD. No carotid bruits or thrill noted. RESPIRATORY: Clear to auscultate bilaterally. No wheezing, rales, or rhonchi noted. CARDIOVASCULAR: Regular rate and rhythm. Normal S1, S2. There are no S3 or S4. No significant murmur, hives, or thrill noted. 2+ pulses in the bilateral upper and lower extremities. No edema in the lower extremities. ABDOMEN: Soft, nontender. No masses palpated. Bowel sounds are present. MUSCULOSKELETAL: The patient able to move all extremities without difficulty except left lower extremity status post left hip revision yesterday. He use a walker. The patient denied claudication. NEUROLOGIC: The patient is alert oriented x4, nonfocal. PSYCHIATRIC: The patient's mood is appropriate. LABORATORY DATA: WBC 12.1, hemoglobin 13.2, hematocrit 40.0, platelet 237. Sodium 134, potassium 4.5, BUN 17, creatinine 0.80, glucose 117. Magnesium 1.6. ASSESSMENT AND PLAN: 1. New onset atrial flutter with well-controlled heart rate at this moment. The patient is asymptomatic. Electrophysiology consult was already ordered. The patient is going to have echocardiogram during this hospitalization. The patient's heart rate is stable at this moment with current medication. We would like to start anticoagulant for stroke prophylactic medication once Orthopedic Team is clear for the patient. He is on aspirin 81 mg once a day at this moment. 2. Paroxysmal atrial fibrillation. According to the patient's 12-lead EKG, he has been in atrial fibrillation. The patient is asymptomatic at this moment. The patient's heart rate is stable at this moment. We would like to continue to monitor with current medication. Since the patient does not have any symptoms from atrial flutter and atrial fibrillation, the patient is going to remain at Med/Surge floor at this moment, but however, once the patient started complaining of some symptoms , the patient is going to be transferred to telemetry floor with library monitor. 3. Hypertension. The patient blood pressure is stable with current medications at this moment. 4. Hyperlipidemia. He is on statin at this moment. 5. Status post left hip revision, which is managed by Orthopedics Team, but the patient is doing well at this moment. He already walks around in his room from yesterday. Thank you very much for Cardiology consult request for allowing us to participate in the care of this patient. We will follow along the patient's care team and make further recommendations as appropriate. Job ID: [id number] MTDD
--- NOTE | 2020-04-04 16:39 | CON ---
DATE OF CONSULTATION: 04/04/2020 Dictated by Charleen Bashir, Nurse Practitioner, as scribe for Dr. Memo Levi. ELECTROPHYSIOLOGY CONSULTATION: REASON FOR CONSULTATION: Atrial arrhythmias. HISTORY OF PRESENT ILLNESS: Mr. Emerson is a 74-year-old gentleman who is a patient of Dr. Duncan. He has had a history of paroxysmal atrial fibrillation, was treated with low-dose flecainide, 50 mg q.a.m., and low-dose atenolol for at least a handful of years. He has, however, been asymptomatic with his atrial fibrillation. He has been on aspirin 325 mg daily for stroke prophylaxis. He was admitted for an elective hip revision procedure. He was found to be in atrial fibrillation and EP consultation was requested. Mr. Emerson is feeling well. He does have some postoperative discomfort, but otherwise he denies any heart racing, palpitations, chest pain, pressure, syncope, near syncope, stroke, or stroke-like symptoms. REVIEW OF SYSTEMS: Twelve-point review of systems is otherwise unremarkable. PAST MEDICAL HISTORY: 1. Hypertension. 2. Atrial fibrillation. 3. Spinal stenosis. 4. Hyperlipidemia. ALLERGIES: NO KNOWN DRUG ALLERGIES. HOME MEDICATIONS: 1. Vitamin C daily. 2. Aspirin 325 mg daily. 3. Atenolol 25 mg p.o. b.i.d. 4. Dorzolamide b.i.d. 5. Calcium daily. 6. Benzonate p.r.n. 7. [place] 10/325 p.r.n. 8. Glucosamine b.i.d. 9. Gabapentin 600 mg nightly. 10. Flecainide 50 mg q.a.m. 11. Methocarbamol 750 mg b.i.d. 12. Claritin daily as needed. 13. Lisinopril 20 mg b.i.d. 14. Hydrochlorothiazide 25 mg daily. 15. Potassium daily. 16. [place] fish oil daily. 17. Multivitamin daily. 18. Sulindac 200 mg q.a.m. 19. Simvastatin 20 mg q.p.m. FAMILY HISTORY: Father is , positive for history of colon cancer. Mom is . History of renal failure. Has siblings that are alive. SOCIAL HISTORY: Denies alcohol, tobacco, or illicit drug use. OBJECTIVE: VITAL SIGNS: Temperature 98.2, pulse 96, blood pressure 106/72, respirations 14, and oxygen 94% on room air. Height 5 foot 8 inches, weight 180 pounds, and BMI 27.4. GENERAL: The patient is alert and oriented. Speech is clear. Affect is appropriate. He is in no apparent distress, resting comfortably at the time the exam, sitting upright in a chair. HEENT: Normocephalic and atraumatic. Sclerae anicteric. EOMs are intact. Oral mucosa is moist and pink with adequate dentition. NECK: Supple without jugular venous distention. HEART: Rate is irregularly irregular with crisp S1 and S2. PMI nondisplaced. LUNGS: Clear to auscultation bilaterally without wheezes, crackles, or rhonchi. Respirations are even and unlabored. ABDOMEN: Obese, soft, and nontender without palpable masses. EXTREMITIES: Warm and dry to touch. Well perfused without clubbing, cyanosis, or edema. Left hip dressing is in place from his recent surgery. LABORATORY DATA: Hemoglobin 13.2 and WBC 12. Potassium 4.5 and creatinine 0.8. Magnesium 1.6. EKGs were reviewed and showed atrial fibrillation and also atrial flutter, likely left atrial in origin. No RVR. IMPRESSION: 1. Atrial fibrillation and atrial flutter, likely multiple left atrial circuits. 2. CHADS-VASc score of 3 on the basis of advanced age and hypertension. 3. Recent left hip revision. PLAN AND RECOMMENDATIONS: Mr. Emerson is a pleasant 74-year-old gentleman with a history of previously paroxysmal atrial fibrillation, that is possibly now more persistent. He has been in atrial fibrillation for multiple EKGs during this hospitalization. He is asymptomatic with his atrial arrhythmias and is seen to have rate controlled atrial fibrillation and also atrial flutter, that likely originates from the left atrium as well. We discussed treatment options for atrial fibrillation and also the need for anticoagulation due to his high CHADS-VASc score. I would recommend stopping flecainide, pursuing rate control alone, while anticoagulation is initiated. I would recommend Eliquis 5 mg p.o. b.i.d. once he is cleared to start this by the surgeon. He will require anticoagulation for 30 days. Resume a higher dose of flecainide or consider cardioversion if he remains out of rhythm. Long-term, he may require PVAI if he becomes symptomatic or his arrhythmias persist, refractory to antiarrhythmic therapy. Thank you for allowing me to participate in the care of this patient. Job ID: [id number]
--- NOTE | 2020-04-04 17:19 | PRG ---
DATE OF SERVICE: SUBJECTIVE: Issac is a 74-year-old male, who is postop day 1 from a revision of one-component left hip acetabular revision arthroplasty. He is doing relatively well, but staff has reported some strange behavior consistent with very mild mental status changes to include a little bit of confusion and hallucination. I did talk to his on the phone through nursing staff and patient does consume a couple bottles of wine in the evenings on a regular basis. He still has his fentanyl epidural going and this will be the first point we will address for his behavior. Otherwise, he is stable and he is polite, pleasant and conversive. OBJECTIVE: VITAL SIGNS: Temperature 98.3, pulse 95, respiratory rate 18 and nonlabored, blood pressure is 149/97. GENERAL: He is alert, oriented, responsive, and appropriate with the examiner, but he does have a little bit of wandering mental status to dysconjugate topics. He is neurovascularly intact otherwise. LABORATORY DATA: Hemoglobin and hematocrit 13.2 and 40.0. IMPRESSION: 1. A 74-year-old male, postoperative day 1, left total hip revision arthroplasty, one-component. 2. Chronic atrial fibrillation, stable, rate controlled. 3. Mild confusion and noticeable inappropriate responses. PLAN: 1. I have discussed the patient's current status with [facility] team, Dr. Desai, and we will stay vigilant as we continue to observe. 2. First course of action is stop his epidural. 3. Give consider to discontinue the gabapentin. 4. Continue to observe. Job ID: [id number]
[2020-04-04] MEDS: Gabapentin 300 MG CAP PO SCH (20:52)
[2020-04-04] MEDS: Atorvastatin Calcium 10 MG TAB PO SCH (20:52)
[2020-04-04] MEDS: Atenolol 25 MG TAB PO SCH (20:53)
[2020-04-04] MEDS: Thiamine 100 MG TAB PO SCH (20:53)
[2020-04-04] MEDS: Folic Acid 1 MG TAB PO SCH (20:53)
[2020-04-05] MEDS: Sodium Chloride 0.9% 1,000 ML IV SCH ×2 (04:31→14:54)
--- NOTE | 2020-04-05 05:39 | CON ---
DATE OF CONSULTATION: 04/04/2020 ADDENDUM: INDICATION FOR CONSULTATION: This is a 74-year-old gentleman, who has had a history of intermittent atrial fibrillation in the past, who presented for a hip replacement and was noted to have atrial fibrillation and actually has now converted to atrial flutter. He had been relatively asymptomatic. He had been placed on aspirin previously for stroke prevention, but he was noted to be in the atrial flutter with rapid ventricular response postoperatively. He denies any complaints at this time. He also was seen in consultation I believe by Dr. Levi due to the new onset atrial flutter. We appreciate the consultation by Dr. Levi for his atrial flutter, we will be guided by his recommendations. This patient I have known him for many years. He has had the history of atrial fibrillation in the past with hypertension and also hyperlipidemia as well as his other medical problems. At this time, he remains stable. He is asymptomatic with the atrial flutter and the rate is under good control at this time after being treated by medical management. We will continue the medications at this time. PAST MEDICAL HISTORY: Please refer to the notes dictated by nurse practitioner. SOCIAL HISTORY: Please refer to the notes dictated by nurse practitioner. Previously, he denied alcohol or tobacco abuse. However, he does apparently according to the have more than the normal alcohol intake. This may also be contributing some to his irregular heart rate. She says he may drink as much as one and half liters of wine per day in the evenings. Certainly, he will need to be watched for possible signs of DTs or delirium tremors postoperatively. FAMILY HISTORY: Please refer to the notes dictated by nurse practitioner. REVIEW OF SYSTEMS: Please refer to the notes dictated by nurse practitioner. MEDICATIONS: Please refer to the notes dictated by nurse practitioner. PHYSICAL EXAMINATION: Please refer to the notes dictated by nurse practitioner. PLAN: At this time, I would agree with the present plan which is outlined by Dr. Levi, where we will continue to treat the patient medically for rate control and in the future could undergo a possible ablation of the atrial flutter. He may need to be evaluated in another facility and see if this may be a left pattern, which is somewhat more difficult to ablate. We are more than happy to continue to follow with you and as soon as possible we will place him back on oral anticoagulation. We will also discontinue the flecainide and consider increasing the dose of beta blockers as suggested by health occupations instructor. I am more than happy to continue to follow the patient with you. At this time, he appears actually to be overall stable despite having the atrial fibrillation and flutter. Job ID: [id number] MTDD
[2020-04-05 05:54] LABS: #Eosinphils 0.2 thou/uL (0.0-0.7); #Lymphocytes 1.5 thou/uL (1.20-3.40); #Monocytes 1.3 thou/uL (0.11-0.59); #Neutrophils 7.6 thou/uL (1.40-6.50); %Basophils 0.5 % (0.0-1.0); %Eosinophils 2.2 % (0.0-10.0); %Lymphocytes 13.8 % (21.0-51.0); %Monocytes 12.1 % (0.0-10.0); %Neutrophils 71.5 % (42.0-75.0); Hemoglobin 12.4 g/dL (14.0-18.0); Mean Corpuscular HGB CONC 33.9 g/dL (32.0-36.0); Mean Corpuscular Volume 97.4 fL (78.0-98.0); Mean Platelet Volume 7.5 fL (7.4-10.4); Platelet Count 190 thou/uL (130-400); RBC Distribution Width 11.2 % (11.5-14.5); Red Blood Cell (RBC) Count 3.75 mill/uL (4.70-6.10); White Blood Cell (WBC) Count 10.6 thou/uL (4.8-10.8)
[2020-04-05 06:18] LABS: Albumin 3.4 g/dL (3.4-4.8); Anion Gap 11 mmol/L (10-20); BUN (Urea Nitrogen) 21 mg/dL (8.4-25.7); BUN/Creatinine Ratio 28.77; Calc. Creatinine Clearance 101 mL/min (70-130); Calcium 8.6 mg/dL (7.8-10.44); Carbon Dioxide 23 mmol/L (23-31); Chloride 100 mmol/L (98-107); Estimated GFR-MDRD Greater than 90; Glucose 109 mg/dL (83-110); Magnesium 2.2 mg/dL (1.6-2.6); Phosphorus 3.3 mg/dL (2.3-4.7); Potassium 4.2 mmol/L (3.5-5.1); Sodium 130 mmol/L (136-145)
--- NOTE | 2020-04-05 10:17 | PDOC.HOSPP ---
- Subjective Encounter Date: 04/04/20 Encounter Time: 16:00 Subjective: Patient seen and examined for med mngt. No CP or SOB. Mentation improving. No new complaints. No overnight events - Objective Vital Signs & Weight: Vital Signs (12 hours) Temp Pulse Resp BP BP Pulse Ox 04/05/20 08:00 98.1 F 84 12 146/92 H 90 L 04/05/20 00:05 159/89 H 04/05/20 00:00 97.7 F 81 18 159/89 H 93 L Weight Admit Weight 180 lb Weight 180 lb I&O: 04/04/20 04/05/20 04/06/20 06:59 06:59 06:59 Intake Total 3150 1960 Output Total 1100 1275 Balance 2050 685 Result Diagrams: 04/05/20 05:34 04/05/20 05:34 Additional Labs: Laboratory Tests 04/04/20 04:46 Sodium 134 L EKG Reviewed by me: Yes (Afib) Hospitalist ROS - Review of Systems Respiratory: denies: cough, dry, shortness of breath, hemoptysis, SOB with excertion, pleuritic pain, sputum, wheezing, other Cardiovascular: denies: chest pain, palpitations, orthopnea, paroxysmal noc. dyspnea, edema, light headedness, other - Medication Medications: Active Medications Generic Name Dose Route Start Last Admin Trade Name Freq PRN Reason Stop Dose Admin Hydrocodone Bitart/Acetaminophen 2 tab 04/03/20 12:45 04/04/20 17:22 [place] 5/325 PO 2 tab Q4H PRN Administration For Moderate Pain 4-6 Ascorbic Acid 500 mg 04/04/20 09:00 04/04/20 08:45 Vitamin C PO 500 mg DAILY ADRIÁN Administration Aspirin 81 mg 04/03/20 21:00 04/04/20 20:53 Ecotrin PO 81 mg BID ADRIÁN Administration Atenolol 25 mg 04/04/20 21:00 04/04/20 20:53 Tenormin PO 25 mg BID ADRIÁN Administration Atorvastatin Calcium 10 mg 04/03/20 21:00 04/04/20 20:52 Lipitor PO 10 mg HS ADRIÁN Administration Calcium/Vitamin D 250 mg 04/04/20 09:00 04/04/20 08:45 Oscal + Vit D PO 250 mg DAILY ADRIÁN Administration Dorzolamide/Timolol 1 drop 04/03/20 21:00 04/04/20 20:52 Cosopt 2-0.5% Ophth Soln R EYE 1 drop BID ADRIÁN Administration Ferrous Gluconate 324 mg 04/04/20 09:00 04/04/20 20:53 Fergon PO 324 mg BID ADRIÁN Administration Folic Acid 1 mg 04/04/20 21:00 04/04/20 20:53 Folvite PO 1 mg HS ADRIÁN Administration Gabapentin 600 mg 04/03/20 21:00 04/04/20 20:52 Neurontin PO 600 mg HS ADRIÁN Administration Fentanyl Citrate 500 mcg/ 100 mls @ 6 mls/hr 04/03/20 12:45 04/04/20 07:19 Bupivacaine HCl 10 ml/ Sodium EPIDURAL 100 mls Chloride INF ADRIÁN Administration Sodium Chloride 1,000 mls @ 100 mls/hr 04/03/20 13:00 04/05/20 04:31 Normal Saline 0.9% IV Not Given .Q10H ADRIÁN Ketorolac Tromethamine 15 mg 04/03/20 12:45 04/04/20 17:21 Toradol IVP 04/06/20 12:46 15 mg Q6H PRN Administration Moderate Pain (4-6) Potassium Chloride 5 meq 04/04/20 09:00 04/04/20 08:46 Klor-Con 10 PO 5 meq DAILY ADRIÁN Administration Senna/Docusate Sodium 2 tab 04/04/20 09:00 04/04/20 20:53 Senokot S PO 2 tab BID ADRIÁN Administration Thiamine HCl 100 mg 04/04/20 21:00 04/04/20 20:53 Thiamine PO 100 mg HS ADRIÁN Administration - Exam General Appearance: NAD Heart: no gallops, irregular Respiratory: no wheezes, no ronchi Gastrointestinal: non-tender, non-distended, normal bowel sounds Extremities: no cyanosis, no clubbing Neurological: no new deficit Psychiatric: normal affect, A&O x 3 Hosp A/P - Plan DVT proph w/SCDs Par Afib/flutter HTN HLD Chronic alcoholism Hyponatremia Hypomagnesemia PLAN: change Atenolol to 25 mg BID due to BP on lower side Flecainide dc Add alcohol withdrawal protocol Ok to monitor on medical floor per Cardio/EP Not on anticoag due to recent surgery Full code. DPOA - spouse PT/OT
--- NOTE | 2020-04-05 10:17 | PDOC.HOSPP ---
- Subjective Encounter Date: 04/05/20 Encounter Time: 15:00 Subjective: Patient seen and examined for med mngt. No new complaints. No overnight events - Objective Vital Signs & Weight: Vital Signs (12 hours) Temp Pulse Resp BP BP Pulse Ox 04/05/20 08:00 98.1 F 84 12 146/92 H 90 L 04/05/20 00:05 159/89 H 04/05/20 00:00 97.7 F 81 18 159/89 H 93 L Weight Admit Weight 180 lb Weight 180 lb I&O: 04/04/20 04/05/20 04/06/20 06:59 06:59 06:59 Intake Total 3150 1960 Output Total 1100 1275 Balance 0 685 Result Diagrams: 04/06/20 05:48 04/06/20 05:48 Hospitalist ROS - Review of Systems Respiratory: denies: cough, dry, shortness of breath, hemoptysis, SOB with excertion, pleuritic pain, sputum, wheezing, other Cardiovascular: denies: chest pain, palpitations, orthopnea, paroxysmal noc. dyspnea, edema, light headedness, other - Medication Medications: Active Medications Generic Name Dose Route Start Last Admin Trade Name Freq PRN Reason Stop Dose Admin Hydrocodone Bitart/Acetaminophen 2 tab 04/03/20 12:45 04/04/20 17:22 [place] 5/325 PO 2 tab Q4H PRN Administration For Moderate Pain 4-6 Ascorbic Acid 500 mg 04/04/20 09:00 04/04/20 08:45 Vitamin C PO 500 mg DAILY ADRIÁN Administration Aspirin 81 mg 04/03/20 21:00 04/04/20 20:53 Ecotrin PO 81 mg BID ADRIÁN Administration Atenolol 25 mg 04/04/20 21:00 04/04/20 20:53 Tenormin PO 25 mg BID ADRIÁN Administration Atorvastatin Calcium 10 mg 04/03/20 21:00 04/04/20 20:52 Lipitor PO 10 mg HS ADRIÁN Administration Calcium/Vitamin D 250 mg 04/04/20 09:00 04/04/20 08:45 Oscal + Vit D PO 250 mg DAILY ADRIÁN Administration Dorzolamide/Timolol 1 drop 04/03/20 21:00 04/04/20 20:52 Cosopt 2-0.5% Ophth Soln R EYE 1 drop BID ADRIÁN Administration Ferrous Gluconate 324 mg 04/04/20 09:00 04/04/20 20:53 Fergon PO 324 mg BID ADRIÁN Administration Folic Acid 1 mg 04/04/20 21:00 04/04/20 20:53 Folvite PO 1 mg HS ADRIÁN Administration Gabapentin 600 mg 04/03/20 21:00 04/04/20 20:52 Neurontin PO 600 mg HS ADRIÁN Administration Fentanyl Citrate 500 mcg/ 100 mls @ 6 mls/hr 04/03/20 12:45 04/04/20 07:19 Bupivacaine HCl 10 ml/ Sodium EPIDURAL 100 mls Chloride INF ADRIÁN Administration Sodium Chloride 1,000 mls @ 100 mls/hr 04/03/20 13:00 04/05/20 04:31 Normal Saline 0.9% IV Not Given .Q10H ADRIÁN Ketorolac Tromethamine 15 mg 04/03/20 12:45 04/04/20 17:21 Toradol IVP 04/06/20 12:46 15 mg Q6H PRN Administration Moderate Pain (4-6) Potassium Chloride 5 meq 04/04/20 09:00 04/04/20 08:46 Klor-Con 10 PO 5 meq DAILY ADRIÁN Administration Senna/Docusate Sodium 2 tab 04/04/20 09:00 04/04/20 20:53 Senokot S PO 2 tab BID ADRIÁN Administration Thiamine HCl 100 mg 04/04/20 21:00 04/04/20 20:53 Thiamine PO 100 mg HS ADRIÁN Administration - Exam General Appearance: NAD Heart: no gallops, irregular Respiratory: no wheezes, no ronchi Gastrointestinal: soft, non-tender, normal bowel sounds Extremities: no cyanosis, no clubbing Psychiatric: normal affect, A&O x 3 Hosp A/P - Plan Par Afib/flutter -on Atenolol -Flecainide dc -Not on anticoag due to recent surgery HTN HLD Chronic alcoholism Hyponatremia Hypomagnesemia PLAN: Atenolol increased Monitor closely for withdrawals Add Beer QPM cont alcohol withdrawal protocol AM labs
[2020-04-05] MEDS ORDERED: Furosemide 20 MG/2 ML VIAL SLOW IVP SCH (10:30)
[2020-04-05] MEDS ORDERED: Atenolol 25 MG TAB PO SCH (10:30)
--- NOTE | 2020-04-05 10:33 | PDOC.CPN ---
- Subjective Date: 04/05/20 Time: 08:00 Interval history: The pt seen and examined. No overnight events. No cardiac complaints. - Objective Allergies/Adverse Reactions: Allergies Allergy/AdvReac Type Severity Reaction Status Date / Time No Known Allergies Allergy Verified 03/27/20 13:50 Visit Medications: Current Medications Acetaminophen (Tylenol) 1,000 mg PO Q6H PRN PRN Reason: Headache/Fever or Pain Hydrocodone Bitart/Acetaminophen ([place] 5/325) 1 tab PO Q4H PRN PRN Reason: Mild Pain 1-3 Hydrocodone Bitart/Acetaminophen ([place] 5/325) 2 tab PO Q4H PRN PRN Reason: For Moderate Pain 4-6 Last Admin: 04/04/20 17:22 Dose: 2 tab Ascorbic Acid (Vitamin C) 500 mg PO DAILY [facility] Last Admin: 04/04/20 08:45 Dose: 500 mg Aspirin (Ecotrin) 81 mg PO BID [facility] Last Admin: 04/04/20 20:53 Dose: 81 mg Atenolol (Tenormin) 25 mg PO BID [facility] Last Admin: 04/04/20 20:53 Dose: 25 mg Atorvastatin Calcium (Lipitor) 10 mg PO HS [facility] Last Admin: 04/04/20 20:52 Dose: 10 mg Benzonatate (Tessalon) 100 mg PO Q8H PRN PRN Reason: Cough Calcium/Vitamin D (Oscal + Vit D) 250 mg PO DAILY [facility] Last Admin: 04/04/20 08:45 Dose: 250 mg Cyanocobalamin (Vitamin B-12) 1,000 mcg PO DAILY [facility] Diphenhydramine HCl (Benadryl) 25 mg IM Q3H PRN PRN Reason: Itching Diphenhydramine HCl (Benadryl) 25 mg IVP Q3H PRN PRN Reason: Itching Diphenhydramine HCl (Benadryl) 25 mg PO Q6H PRN PRN Reason: Itching Dorzolamide/Timolol (Cosopt 2-0.5% Ophth Soln) 1 drop R EYE BID [facility] Last Admin: 04/04/20 20:52 Dose: 1 drop Emollient Cream (Hydrocerin Cream) 0 gm TOP PRN PRN PRN Reason: Itching Ferrous Gluconate (Fergon) 324 mg PO BID [facility] Last Admin: 04/04/20 20:53 Dose: 324 mg Folic Acid (Folvite) 1 mg PO HS [facility] Last Admin: 04/04/20 20:53 Dose: 1 mg Gabapentin (Neurontin) 600 mg PO HS [facility] Last Admin: 04/04/20 20:52 Dose: 600 mg Hydralazine HCl (Apresoline) 10 mg SLOW IVP Q4H PRN PRN Reason: SBP GREATER THAN 160 Fentanyl Citrate 500 mcg/Bupivacaine HCl 10 ml/ Sodium Chloride 100 mls @ 6 mls /hr EPIDURAL INF [facility] Last Admin: 04/04/20 07:19 Dose: 100 mls Sodium Chloride (Normal Saline 0.9%) 1,000 mls @ 100 mls/hr IV .Q10H [facility] Last Admin: 04/05/20 04:31 Dose: Not Given Ketorolac Tromethamine (Toradol) 15 mg IVP Q6H PRN PRN Reason: Moderate Pain (4-6) Stop: 04/06/20 12:46 Last Admin: 04/04/20 17:21 Dose: 15 mg Labetalol HCl (Normodyne) 10 mg SLOW IVP Q4H PRN PRN Reason: Systolic BP > 180 Loratadine (Claritin) 10 mg PO DAILYPRN PRN PRN Reason: Allergies Lorazepam (Ativan) 0.5 mg PO Q4H PRN PRN Reason: ASE >9 Methocarbamol (Robaxin) 750 mg PO BIDPRN PRN PRN Reason: Muscle Spasm Miscellaneous Information (Communication Order-Pharmacy) 1 each FS ASDIR [facility] Multivitamins (Theragran) 1 tab PO DAILY [facility] Naloxone HCl (Narcan) 0.2 mg IV Q5MIN PRN PRN Reason: RR <=8 OR OBTUNDED/UNAROUSABLE Naloxone HCl (Narcan) 0.1 mg IVP Q15MIN PRN PRN Reason: URINARY RETENTION Ondansetron HCl (Zofran) 4 mg IVP Q6H PRN PRN Reason: Nausea/Vomiting Potassium Chloride (Klor-Con 10) 5 meq PO DAILY [facility] Last Admin: 04/04/20 08:46 Dose: 5 meq Promethazine HCl (Phenergan Suppository) 25 mg [place] Q4H PRN PRN Reason: Nausea/Vomiting Promethazine HCl (Phenergan) 12.5 mg IM Q4H PRN PRN Reason: Nausea/Vomiting Pyridoxine HCl (Vitamin B 6) 50 mg PO DAILY [facility] Senna/Docusate Sodium (Senokot S) 2 tab PO BID [facility] Last Admin: 04/04/20 20:53 Dose: 2 tab Sodium Chloride (Flush - Normal Saline) 10 ml IVF PRN PRN PRN Reason: Saline Flush Thiamine HCl (Thiamine) 100 mg PO HS [facility] Last Admin: 04/04/20 20:53 Dose: 100 mg Tramadol HCl (Ultram) 50 mg PO Q6H PRN PRN Reason: Mild Pain 1-3 Tramadol HCl (Ultram) 100 mg PO Q6H PRN PRN Reason: Moderate Pain 4-6 Zolpidem Tartrate (Ambien) 5 mg PO HSPRN PRN PRN Reason: Insomnia Vital Signs & Weight: Vital Signs Temp Pulse Resp BP BP Pulse Ox 04/05/20 08:00 98.1 F 84 12 146/92 H 90 L 04/05/20 00:05 159/89 H 04/05/20 00:00 97.7 F 81 18 159/89 H 93 L Admit Weight 180 lb Weight 180 lb - Labs Result Diagrams: 04/06/20 05:48 04/06/20 05:48 - Assessment/Plan Assessment/Plan: 1. New onset Aflutter/Persistent Afib - Atenolol was increased to 50mg BID from today; Will start Eliquis 5mg BID once cleared by Dr Hall. OAC for 30 days proiro to resume Flecainde or LUIS/DCCV. 2. s/p Lt hip revision 3. HTN - Atenolol was increased to 50mg BID from today 4. HLD - on Statin 5. ETOH abuse due to hx of severe PTSD - He is willing to decrease the amount of alcohol consumption 6. SOB - Lasix 20mg IV given today MAR reviewed Pt. seen and eval. by me.I agree with the A/P by the LIBRARY CATALOGING TECHNICIAN. Appreciate EP input. Pt. is SOB this aM, trying to work with EP.Irreg. tachycardia.continue betablockers. Increased ETOH consumption. Watch for DT's. gjm
[2020-04-05] MEDS: Calcium Carbonate + Vit D 250 MG TAB PO SCH (10:37)
[2020-04-05] MEDS: Atenolol 25 MG TAB PO SCH ×2 (10:37→21:17)
[2020-04-05] MEDS: DorzolamidE/Timolol 2%/0.5% Ophth Soln 10 ml Bottle R EYE SCH ×2 (10:37→21:16)
[2020-04-05] MEDS: Aspirin 81 mg Enteric Coated Tablet PO SCH ×2 (10:38→21:17)
[2020-04-05] MEDS: Potassium Chloride 10 MEQ TAB PO SCH (10:38)
[2020-04-05] MEDS: Multivit, Therapeutic 1 TAB PO SCH (10:39)
[2020-04-05] MEDS: Ferrous Gluconate 324 MG TAB PO SCH ×2 (10:39→21:16)
[2020-04-05] MEDS: Senokot S 8.6-50 MG TAB PO SCH ×2 (10:39→21:16)
[2020-04-05] MEDS: Cyanocobalamin (Vitamin B-12) 1,000 MCG TAB PO SCH (10:39)
[2020-04-05] MEDS: Ascorbic Acid 500 mg Chewable Tablet PO SCH (10:39)
[2020-04-05] MEDS: pyridOXINE 50 MG (B6) TAB PO SCH (10:40)
--- NOTE | 2020-04-05 11:25 | RAD ---
XR Chest 1 View Portable HISTORY: Dyspnea on exertion COMPARISON: 03/22/2014 FINDINGS: The heart size enlarged. The aorta is tortuous. No lobar consolidation, pneumothoraces, fra nk pulmonary edema or pleural effusions are seen. There are postop changes in the shoulders and the cervical spine. IMPRESSION: No radiographic evidence of acute cardiopulmonary process.
[2020-04-05] MEDS: HYDROcodone/Acetaminophen 5/325 mg Tablet PO PRN (14:57)
[2020-04-05] MEDS ORDERED: BEER 1 CAN PO SCH (17:30)
[2020-04-05] MEDS ORDERED: Tamsulosin HCl 0.4 MG CAP PO SCH (17:30)
[2020-04-05] MEDS: Folic Acid 1 MG TAB PO SCH (21:16)
[2020-04-05] MEDS: Thiamine 100 MG TAB PO SCH (21:16)
[2020-04-05] MEDS: Atorvastatin Calcium 10 MG TAB PO SCH (21:17)
[2020-04-05] MEDS: Gabapentin 300 MG CAP PO SCH (21:17)
[2020-04-06] MEDS: Sodium Chloride 0.9% 1,000 ML IV SCH ×2 (00:31→11:04)
[2020-04-06 06:02] LABS: #Eosinphils 0.2 thou/uL (0.0-0.7); #Lymphocytes 1.5 thou/uL (1.20-3.40); #Monocytes 1.2 thou/uL (0.11-0.59); #Neutrophils 6.6 thou/uL (1.40-6.50); %Basophils 0.3 % (0.0-1.0); %Eosinophils 2.4 % (0.0-10.0); %Lymphocytes 15.8 % (21.0-51.0); %Monocytes 12.4 % (0.0-10.0); Hemoglobin 11.7 g/dL (14.0-18.0); Mean Corpuscular HGB CONC 32.4 g/dL (32.0-36.0); Mean Corpuscular Hemoglobin 31.7 pg (27.0-31.0); Mean Corpuscular Volume 97.8 fL (78.0-98.0); Mean Platelet Volume 7.4 fL (7.4-10.4); Platelet Count 186 thou/uL (130-400); RBC Distribution Width 11.2 % (11.5-14.5); Red Blood Cell (RBC) Count 3.68 mill/uL (4.70-6.10); White Blood Cell (WBC) Count 9.6 thou/uL (4.8-10.8)
[2020-04-06 06:27] LABS: Albumin 3.3 g/dL (3.4-4.8); Anion Gap 12 mmol/L (10-20); BUN (Urea Nitrogen) 13 mg/dL (8.4-25.7); BUN/Creatinine Ratio 18.57; Calc. Creatinine Clearance 105 mL/min (70-130); Calcium 9.3 mg/dL (7.8-10.44); Carbon Dioxide 26 mmol/L (23-31); Chloride 102 mmol/L (98-107); Estimated GFR-MDRD Greater than 90; Glucose 99 mg/dL (83-110); Magnesium 1.8 mg/dL (1.6-2.6); Phosphorus 2.6 mg/dL (2.3-4.7); Potassium 4.8 mmol/L (3.5-5.1); Sodium 135 mmol/L (136-145)
[2020-04-06] MEDS ORDERED: Magnesium 2 GM/50 ML 2 GM in Premix Bag 1 BAG IVPB SCH (08:30)
--- NOTE | 2020-04-06 08:32 | PDOC.CPN ---
- Subjective Date: 04/06/20 Time: 08:35 Interval history: The pt seen and examined. No overnight events. No cardiac complaints. He stated he finally had BM today - Objective Allergies/Adverse Reactions: Allergies Allergy/AdvReac Type Severity Reaction Status Date / Time No Known Allergies Allergy Verified 03/27/20 13:50 Visit Medications: Current Medications Acetaminophen (Tylenol) 1,000 mg PO Q6H PRN PRN Reason: Headache/Fever or Pain Hydrocodone Bitart/Acetaminophen ([place] 5/325) 1 tab PO Q4H PRN PRN Reason: Mild Pain 1-3 Last Admin: 04/05/20 14:57 Dose: 1 tab Hydrocodone Bitart/Acetaminophen ([place] 5/325) 2 tab PO Q4H PRN PRN Reason: For Moderate Pain 4-6 Last Admin: 04/04/20 17:22 Dose: 2 tab Ascorbic Acid (Vitamin C) 500 mg PO DAILY [facility] Last Admin: 04/05/20 10:39 Dose: 500 mg Aspirin (Ecotrin) 81 mg PO BID [facility] Last Admin: 04/05/20 21:17 Dose: 81 mg Atenolol (Tenormin) 50 mg PO BID [facility] Last Admin: 04/05/20 21:17 Dose: 50 mg Atorvastatin Calcium (Lipitor) 10 mg PO HS [facility] Last Admin: 04/05/20 21:17 Dose: 10 mg Beer (Beer) 2 each PO [facility] Benzonatate (Tessalon) 100 mg PO Q8H PRN PRN Reason: Cough Calcium/Vitamin D (Oscal + Vit D) 250 mg PO DAILY [facility] Last Admin: 04/05/20 10:37 Dose: 250 mg Cyanocobalamin (Vitamin B-12) 1,000 mcg PO DAILY [facility] Last Admin: 04/05/20 10:39 Dose: 1,000 mcg Diphenhydramine HCl (Benadryl) 25 mg IM Q3H PRN PRN Reason: Itching Diphenhydramine HCl (Benadryl) 25 mg IVP Q3H PRN PRN Reason: Itching Diphenhydramine HCl (Benadryl) 25 mg PO Q6H PRN PRN Reason: Itching Dorzolamide/Timolol (Cosopt 2-0.5% Ophth Soln) 1 drop R EYE BID [facility] Last Admin: 04/05/20 21:16 Dose: 1 drop Emollient Cream (Hydrocerin Cream) 0 gm TOP PRN PRN PRN Reason: Itching Ferrous Gluconate (Fergon) 324 mg PO BID [facility] Last Admin: 04/05/20 21:16 Dose: 324 mg Folic Acid (Folvite) 1 mg PO HS [facility] Last Admin: 04/05/20 21:16 Dose: 1 mg Furosemide (Lasix) 20 mg SLOW IVP ONE [facility] Gabapentin (Neurontin) 600 mg PO HS [facility] Last Admin: 04/05/20 21:17 Dose: 600 mg Hydralazine HCl (Apresoline) 10 mg SLOW IVP Q4H PRN PRN Reason: SBP GREATER THAN 160 Fentanyl Citrate 500 mcg/Bupivacaine HCl 10 ml/ Sodium Chloride 100 mls @ 6 mls /hr EPIDURAL INF [facility] Last Admin: 04/04/20 07:19 Dose: 100 mls Sodium Chloride (Normal Saline 0.9%) 1,000 mls @ 100 mls/hr IV .Q10H [facility] Last Admin: 04/06/20 00:31 Dose: Not Given Magnesium Sulfate 2 gm/ Device 50 mls @ 50 mls/hr IVPB NOW [facility] Stop: 04/06/20 11:00 Ketorolac Tromethamine (Toradol) 15 mg IVP Q6H PRN PRN Reason: Moderate Pain (4-6) Stop: 04/06/20 12:46 Last Admin: 04/04/20 17:21 Dose: 15 mg Labetalol HCl (Normodyne) 10 mg SLOW IVP Q4H PRN PRN Reason: Systolic BP > 180 Loratadine (Claritin) 10 mg PO DAILYPRN PRN PRN Reason: Allergies Lorazepam (Ativan) 0.5 mg PO Q4H PRN PRN Reason: ASE >9 Methocarbamol (Robaxin) 750 mg PO BIDPRN PRN PRN Reason: Muscle Spasm Miscellaneous Information (Communication Order-Pharmacy) 1 each FS ASDIR [facility] Multivitamins (Theragran) 1 tab PO DAILY [facility] Last Admin: 04/05/20 10:39 Dose: 1 tab Naloxone HCl (Narcan) 0.2 mg IV Q5MIN PRN PRN Reason: RR <=8 OR OBTUNDED/UNAROUSABLE Naloxone HCl (Narcan) 0.1 mg IVP Q15MIN PRN PRN Reason: URINARY RETENTION Ondansetron HCl (Zofran) 4 mg IVP Q6H PRN PRN Reason: Nausea/Vomiting Last Admin: 04/05/20 17:41 Dose: 4 mg Potassium Chloride (Klor-Con 10) 5 meq PO DAILY [facility] Last Admin: 04/05/20 10:38 Dose: 5 meq Promethazine HCl (Phenergan Suppository) 25 mg MD Q4H PRN PRN Reason: Nausea/Vomiting Promethazine HCl (Phenergan) 12.5 mg IM Q4H PRN PRN Reason: Nausea/Vomiting Pyridoxine HCl (Vitamin B 6) 50 mg PO DAILY [facility] Last Admin: 04/05/20 10:40 Dose: 50 mg Senna/Docusate Sodium (Senokot S) 2 tab PO BID [facility] Last Admin: 04/05/20 21:16 Dose: 2 tab Sodium Chloride (Flush - Normal Saline) 10 ml IVF PRN PRN PRN Reason: Saline Flush Tamsulosin HCl (Flomax) 0.8 mg PO QAM [facility] Thiamine HCl (Thiamine) 100 mg PO HS [facility] Last Admin: 04/05/20 21:16 Dose: 100 mg Tramadol HCl (Ultram) 50 mg PO Q6H PRN PRN Reason: Mild Pain 1-3 Tramadol HCl (Ultram) 100 mg PO Q6H PRN PRN Reason: Moderate Pain 4-6 Zolpidem Tartrate (Ambien) 5 mg PO HSPRN PRN PRN Reason: Insomnia Vital Signs & Weight: Vital Signs Temp Pulse Resp BP BP Pulse Ox 04/06/20 06:59 98.4 F 76 18 123/84 93 L 04/06/20 04:10 98.5 F 71 18 131/77 96 04/05/20 23:49 98.5 F 85 18 132/75 94 L 04/05/20 21:17 74 134/76 04/05/20 21:15 94 L Admit Weight 180 lb Weight 180 lb - Physical Exam General: alert & oriented x3 HEENT: mucus membranes moist Neck: supple neck Cardiac: regular rate and rhythm, S1/S2 Lungs: clear to auscultation, decreased breath sounds, wheezes Neuro: cranial nerve 2-12 intact Extremities: no edema - Labs Result Diagrams: 04/06/20 05:48 04/06/20 05:48 - Assessment/Plan Assessment/Plan: 1. New onset Aflutter/Persistent Afib - stable with Atenolol 50mg BID; Will start Eliquis 5mg BID once cleared by Dr Hall. OAC for 30 days proiro to resume Flecainde or LUIS/DCCV. 2. s/p Lt hip revision on 04/04/2020 3. HTN - well controlled with current meds 4. HLD - on Statin 5. ETOH abuse due to hx of severe PTSD - on alcohol withdrawal protocol with Beer at HS; On He is willing to decrease the amount of alcohol consumption 6. SOB - still mildly wheezing today; will give another Lasix 20mg IV today MAR reviewed Pt. seen and eval. by me.I agree with the A/P by the GOVERNMENT GUARD. Appreciate EP input. Stable from a cardiac standpoint for d/c. I will see him in the office in 2-3 weeks. kaelyn
[2020-04-06] MEDS ORDERED: Furosemide 20 MG/2 ML VIAL SLOW IVP SCH (08:45)
[2020-04-06] MEDS ORDERED: Tamsulosin HCl 0.4 MG CAP PO SCH ×2 (09:00)
[2020-04-06] MEDS ORDERED: Apixaban 5 MG TAB PO SCH (09:00)
[2020-04-06] MEDS: pyridOXINE 50 MG (B6) TAB PO SCH (09:06)
[2020-04-06] MEDS: Multivit, Therapeutic 1 TAB PO SCH (09:07)
[2020-04-06] MEDS: Potassium Chloride 10 MEQ TAB PO SCH (09:07)
[2020-04-06] MEDS: Cyanocobalamin (Vitamin B-12) 1,000 MCG TAB PO SCH (09:07)
[2020-04-06] MEDS: Atenolol 25 MG TAB PO SCH (09:07)
[2020-04-06] MEDS: Ascorbic Acid 500 mg Chewable Tablet PO SCH (09:08)
[2020-04-06] MEDS: DorzolamidE/Timolol 2%/0.5% Ophth Soln 10 ml Bottle R EYE SCH (09:16)
[2020-04-06] MEDS: Calcium Carbonate + Vit D 250 MG TAB PO SCH (09:16)
[2020-04-06] MEDS: Ferrous Gluconate 324 MG TAB PO SCH (09:17)
[2020-04-06] MEDS: Senokot S 8.6-50 MG TAB PO SCH (09:20)
--- NOTE | 2020-04-06 09:33 | PDOC.HOSPP ---
- Subjective Encounter Date: 04/06/20 Encounter Time: 10:51 Subjective: Mr. Emerson is seen today on post-op day 3 from left total hip arthroplasty. He reports mild pain in his left hip, but otherwise no new complaints. Denies any chest pain, shortness of breath, dizziness, weakness, fever, chills. He has been able to stand and walk with his walker under the direction of PT. He has been able to void without difficulty. - Objective Vital Signs & Weight: Vital Signs (12 hours) Temp Pulse Resp BP Pulse Ox 04/06/20 09:07 76 04/06/20 06:59 98.4 F 76 18 123/84 93 L 04/06/20 04:10 98.5 F 71 18 131/77 96 04/05/20 23:49 98.5 F 85 18 132/75 94 L Weight Admit Weight 180 lb Weight 180 lb I&O: 04/05/20 04/06/20 04/07/20 06:59 06:59 06:59 Intake Total 1960 1860 Output Total 1275 850 Balance 685 1010 Result Diagrams: 04/06/20 05:48 04/06/20 05:48 Hospitalist ROS - Review of Systems Constitutional: denies: fever, chills, sweats, weakness, malaise, other Respiratory: denies: cough, dry, shortness of breath, hemoptysis, SOB with excertion, pleuritic pain, sputum, wheezing, other Cardiovascular: denies: chest pain, palpitations, orthopnea, paroxysmal noc. dyspnea, edema, light headedness, other - Medication Medications: Active Medications Generic Name Dose Route Start Last Admin Trade Name Freq PRN Reason Stop Dose Admin Hydrocodone Bitart/Acetaminophen 1 tab 04/03/20 12:45 04/05/20 14:57 [place] 5/325 PO 1 tab Q4H PRN Administration Mild Pain 1-3 Hydrocodone Bitart/Acetaminophen 2 tab 04/03/20 12:45 04/04/20 17:22 [place] 5/325 PO 2 tab Q4H PRN Administration For Moderate Pain 4-6 Apixaban 5 mg 04/06/20 09:00 04/06/20 09:16 Eliquis PO 5 mg BID [facility] Administration Ascorbic Acid 500 mg 04/04/20 09:00 04/06/20 09:08 Vitamin C PO 500 mg DAILY [facility] Administration Atenolol 50 mg 04/05/20 21:00 04/06/20 09:07 Tenormin PO 50 mg BID [facility] Administration Atorvastatin Calcium 10 mg 04/03/20 21:00 04/05/20 21:17 Lipitor PO 10 mg HS [facility] Administration Calcium/Vitamin D 250 mg 04/04/20 09:00 04/06/20 09:16 Oscal + Vit D PO 250 mg DAILY [facility] Administration Cyanocobalamin 1,000 mcg 04/05/20 09:00 04/06/20 09:07 Vitamin B-12 PO 1,000 mcg DAILY [facility] Administration Dorzolamide/Timolol 1 drop 04/03/20 21:00 04/06/20 09:16 Cosopt 2-0.5% Ophth Soln R EYE 1 drop BID [facility] Administration Ferrous Gluconate 324 mg 04/04/20 09:00 04/06/20 09:17 Fergon PO 324 mg BID [facility] Administration Folic Acid 1 mg 04/04/20 21:00 04/05/20 21:16 Folvite PO 1 mg HS [facility] Administration Gabapentin 600 mg 04/03/20 21:00 04/05/20 21:17 Neurontin PO 600 mg HS [facility] Administration Fentanyl Citrate 500 mcg/ 100 mls @ 6 mls/hr 04/03/20 12:45 04/04/20 07:19 Bupivacaine HCl 10 ml/ Sodium EPIDURAL 100 mls Chloride INF [facility] Administration Sodium Chloride 1,000 mls @ 100 mls/hr 04/03/20 13:00 04/06/20 00:31 Normal Saline 0.9% IV Not Given .Q10H [facility] Ketorolac Tromethamine 15 mg 04/03/20 12:45 04/04/20 17:21 Toradol IVP 04/06/20 12:46 15 mg Q6H PRN Administration Moderate Pain (4-6) Multivitamins 1 tab 04/05/20 09:00 04/06/20 09:07 Theragran PO 1 tab DAILY [facility] Administration Ondansetron HCl 4 mg 04/03/20 12:52 04/05/20 17:41 Zofran IVP 4 mg Q6H PRN Administration Nausea/Vomiting Potassium Chloride 5 meq 04/04/20 09:00 04/06/20 09:07 Klor-Con 10 PO 5 meq DAILY [facility] Administration Pyridoxine HCl 50 mg 04/05/20 09:00 04/06/20 09:06 Vitamin B 6 PO 50 mg DAILY [facility] Administration Senna/Docusate Sodium 2 tab 04/04/20 09:00 04/06/20 09:20 Senokot S PO Not Given BID [facility] Tamsulosin HCl 0.8 mg 04/06/20 09:00 04/06/20 09:17 Flomax PO 0.8 mg QAM [facility] Administration Thiamine HCl 100 mg 04/04/20 21:00 04/05/20 21:16 Thiamine PO 100 mg HS [facility] Administration - Exam General Appearance: NAD, awake alert Heart: irregular Respiratory: CTAB, no wheezes, no rales, no ronchi Gastrointestinal: soft, non-tender, normal bowel sounds Extremities: no cyanosis, no edema Neurological - other findings: No tremors Psychiatric: normal affect, A&O x 3 Hosp A/P - Plan Par Afib/flutter HTN HLD Chronic alcoholism Hyponatremia Hypomagnesemia Urinary retention- Max catheter removed PLAN: Cont Atenolol Cont atorvastatin Cont alcohol withdrawal protocol Per Cardiology/ortho, patient was restarted on Eliquis today. Flecainide dced Started on Flomax Hold Potassium
--- NOTE | 2020-04-06 10:01 | PRG ---
DATE OF SERVICE: 04/05/2020 SUBJECTIVE: Issac is a 74-year-old male, postop day 2 from a revision left total hip arthroplasty. He is doing relatively well in terms of his mentation, which cleared after discontinuing his epidural. He also has some urinary retention issues and his Max has been discontinued. Further discussion reveals that the patient drinks a couple of bottles of wine every evening, so we will have to address this with some beer in his diet this evening. Otherwise, Cardiology has recommended Eliquis 5 b.i.d. for anticoagulation for a month prior to rhythm correction. Also, discontinued the Tambocor. PHYSICAL EXAMINATION: GENERAL: He is alert and responsive. Mentation appears clear today and appropriate. He is ambulating about 30 feet. VITAL SIGNS: Temperature 98.1, pulse 84, respiratory rate 12 and unlabored, O2 saturation on room air, blood pressure 146/92. He is alert, responsive, and appropriate. His incision is clean, has no erythema, no strike through, and he is neurovascularly intact in both lower extremities. LABORATORY DATA: Hemoglobin and hematocrit are 12.4 and 36.6. IMPRESSION: 1. 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 2. Chronic ethanol use. Question of whether or not withdrawals are imminent. 3. Benign prostatic hypertrophy with urinary retention. 4. Pain under better control and mentation improved with discontinuing epidural. PLAN: 1. We will provide him with ethanol this evening in his diet. 2. Flomax 0.8 mg for his urinary retention. 3. Tomorrow, we will add the Eliquis 5 b.i.d. and give consider to either home discharge or inpatient rehabilitation for further efforts at ambulation. Job ID: [id number]
[2020-04-06 11:51] VITALS: BP 114/78; TEMP 98
--- NOTE | 2020-04-06 12:38 | PDOC.EP ---
- Subjective Date: 04/06/20 Time: 12:35 Interval History: follow up for atrial arrhythmia. Pt feels well and is eager to DC home. Voices to cardiac concerns or complaints - Review of Systems Constitutional: reports: chills, fever, sweats, weakness Respiratory: reports: cough, pleuritic pain, shortness of breath, wheezing Cardiology: reports: chest pain, edema, heart racing, light headedness, palpitations, passing out Gastrointestinal: reports: abdominal pain, constipation, diarrhea, hematochezia - Objective Allergies/Adverse Reactions: Allergies Allergy/AdvReac Type Severity Reaction Status Date / Time No Known Allergies Allergy Verified 03/27/20 13:50 Current Medications Acetaminophen (Tylenol) 1,000 mg PO Q6H PRN PRN Reason: Headache/Fever or Pain Hydrocodone Bitart/Acetaminophen ([place] 5/325) 1 tab PO Q4H PRN PRN Reason: Mild Pain 1-3 Last Admin: 04/05/20 14:57 Dose: 1 tab Hydrocodone Bitart/Acetaminophen ([place] 5/325) 2 tab PO Q4H PRN PRN Reason: For Moderate Pain 4-6 Last Admin: 04/04/20 17:22 Dose: 2 tab Apixaban (Eliquis) 5 mg PO BID [facility] Last Admin: 04/06/20 09:16 Dose: 5 mg Ascorbic Acid (Vitamin C) 500 mg PO DAILY [facility] Last Admin: 04/06/20 09:08 Dose: 500 mg Atenolol (Tenormin) 50 mg PO BID [facility] Last Admin: 04/06/20 09:07 Dose: 50 mg Atorvastatin Calcium (Lipitor) 10 mg PO [facility] Last Admin: 04/05/20 21:17 Dose: 10 mg Beer (Beer) 2 each PO [facility] Benzonatate (Tessalon) 100 mg PO Q8H PRN PRN Reason: Cough Calcium/Vitamin D (Oscal + Vit D) 250 mg PO DAILY [facility] Last Admin: 04/06/20 09:16 Dose: 250 mg Cyanocobalamin (Vitamin B-12) 1,000 mcg PO DAILY [facility] Last Admin: 04/06/20 09:07 Dose: 1,000 mcg Diphenhydramine HCl (Benadryl) 25 mg IM Q3H PRN PRN Reason: Itching Diphenhydramine HCl (Benadryl) 25 mg IVP Q3H PRN PRN Reason: Itching Diphenhydramine HCl (Benadryl) 25 mg PO Q6H PRN PRN Reason: Itching Dorzolamide/Timolol (Cosopt 2-0.5% Ophth Soln) 1 drop R EYE BID [facility] Last Admin: 04/06/20 09:16 Dose: 1 drop Emollient Cream (Hydrocerin Cream) 0 gm TOP PRN PRN PRN Reason: Itching Ferrous Gluconate (Fergon) 324 mg PO BID [facility] Last Admin: 04/06/20 09:17 Dose: 324 mg Folic Acid (Folvite) 1 mg PO HS [facility] Last Admin: 04/05/20 21:16 Dose: 1 mg Gabapentin (Neurontin) 600 mg PO HS [facility] Last Admin: 04/05/20 21:17 Dose: 600 mg Hydralazine HCl (Apresoline) 10 mg SLOW IVP Q4H PRN PRN Reason: SBP GREATER THAN 160 Fentanyl Citrate 500 mcg/Bupivacaine HCl 10 ml/ Sodium Chloride 100 mls @ 6 mls /hr EPIDURAL INF [facility] Last Admin: 04/04/20 07:19 Dose: 100 mls Sodium Chloride (Normal Saline 0.9%) 1,000 mls @ 100 mls/hr IV .Q10H [facility] Last Admin: 04/06/20 11:04 Dose: Not Given Ketorolac Tromethamine (Toradol) 15 mg IVP Q6H PRN PRN Reason: Moderate Pain (4-6) Stop: 04/06/20 12:46 Last Admin: 04/04/20 17:21 Dose: 15 mg Labetalol HCl (Normodyne) 10 mg SLOW IVP Q4H PRN PRN Reason: Systolic BP > 180 Loratadine (Claritin) 10 mg PO DAILYPRN PRN PRN Reason: Allergies Lorazepam (Ativan) 0.5 mg PO Q4H PRN PRN Reason: ASE >9 Methocarbamol (Robaxin) 750 mg PO BIDPRN PRN PRN Reason: Muscle Spasm Miscellaneous Information (Communication Order-Pharmacy) 1 each FS ASDIR [facility] Multivitamins (Theragran) 1 tab PO DAILY [facility] Last Admin: 04/06/20 09:07 Dose: 1 tab Naloxone HCl (Narcan) 0.2 mg IV Q5MIN PRN PRN Reason: RR <=8 OR OBTUNDED/UNAROUSABLE Naloxone HCl (Narcan) 0.1 mg IVP Q15MIN PRN PRN Reason: URINARY RETENTION Ondansetron HCl (Zofran) 4 mg IVP Q6H PRN PRN Reason: Nausea/Vomiting Last Admin: 04/05/20 17:41 Dose: 4 mg Promethazine HCl (Phenergan Suppository) 25 mg [place] Q4H PRN PRN Reason: Nausea/Vomiting Promethazine HCl (Phenergan) 12.5 mg IM Q4H PRN PRN Reason: Nausea/Vomiting Pyridoxine HCl (Vitamin B 6) 50 mg PO DAILY [facility] Last Admin: 04/06/20 09:06 Dose: 50 mg Senna/Docusate Sodium (Senokot S) 2 tab PO BID [facility] Last Admin: 04/06/20 09:20 Dose: Not Given Sodium Chloride (Flush - Normal Saline) 10 ml IVF PRN PRN PRN Reason: Saline Flush Tamsulosin HCl (Flomax) 0.8 mg PO QAM [facility] Last Admin: 04/06/20 09:17 Dose: 0.8 mg Thiamine HCl (Thiamine) 100 mg PO HS [facility] Last Admin: 04/05/20 21:16 Dose: 100 mg Tramadol HCl (Ultram) 50 mg PO Q6H PRN PRN Reason: Mild Pain 1-3 Tramadol HCl (Ultram) 100 mg PO Q6H PRN PRN Reason: Moderate Pain 4-6 Zolpidem Tartrate (Ambien) 5 mg PO HSPRN PRN PRN Reason: Insomnia Vital Signs & Weight: Vital Signs Temp Pulse Resp BP BP Pulse Ox 04/06/20 11:00 98 F 97 16 114/78 93 L 04/06/20 09:07 76 04/06/20 06:59 98.4 F 76 18 123/84 93 L 04/06/20 04:10 98.5 F 71 18 131/77 96 Admit Weight 180 lb Weight 180 lb I/O: I/O 04/05/20 04/06/20 04/07/20 06:59 06:59 06:59 Intake Total 5641 6580 Output Total 1275 850 Balance 685 1010 - Quality Measures Condition: Atrial Fibrillation/Flutter (hx or current) CV meds: Eliquis: Yes (started 04/06 AM) - Physical Exam General: alert & oriented x3, appears well, no apparent distress, speech clear, affect appropriate HEENT: mucus membranes moist, normocephaly Neck: supple neck, midline trachea, no JVD/HJR, no masses, no bruit, no lymphadenopathy, no thromegaly Cardiology: regular rate, irregularly irregular Lungs: clear to auscultation, normal breath sounds, no wheeze, rales, rhonchi Neurology: cranial nerve 2-12 intact, grossly intact, no lateralizing findings - Chadsvasc Risk factors Hypertension: 1 Age >75: 2 Risk Score: 3 - Labs Result Diagrams: 04/06/20 05:48 04/06/20 05:48 - EKG Interpretation EKG Method: 12 Lead EKG shows: Atrial fibrillation - Assessment/Plan Assessment/Plan: 1. Atrial arrhythmias - A Fib and flutter seen, likely multiple left atrial circuits, does not appear to be typical CTI dependent flutter 2. CHADS VASC >/=3 - started eliquis 5mg BID 3. Recent hip revision heart rates remain controlled. He remains asymptomatic with arrhythmias. Plan is for continued anticoagulation and rate control. Can consider CV with Dr Duncan or myself after 30 days OAC therapy. Consider AAD therapy vs PVAI if recurrence is seen after that. Will see back in 6 weeks. OK for DC. Please DC with eliquis. Thank you
--- NOTE | 2020-04-06 14:00 | PDOC.HOSPP ---
- Subjective Encounter Date: 04/06/20 - Objective Vital Signs & Weight: Vital Signs (12 hours) Temp Pulse Resp BP BP Pulse Ox 04/06/20 11:00 98 F 97 16 114/78 93 L 04/06/20 09:07 76 04/06/20 06:59 98.4 F 76 18 123/84 93 L 04/06/20 04:10 98.5 F 71 18 131/77 96 Weight Admit Weight 180 lb Weight 180 lb I&O: 04/05/20 04/06/20 04/07/20 06:59 06:59 06:59 Intake Total 1960 1860 Output Total 1275 850 Balance 685 1010 Result Diagrams: 04/06/20 05:48 04/06/20 05:48 Hospitalist ROS - Medication Medications: Active Medications Generic Name Dose Route Start Last Admin Trade Name Freq PRN Reason Stop Dose Admin Hydrocodone Bitart/Acetaminophen 1 tab 04/03/20 12:45 04/05/20 14:57 [place] 5/325 PO 1 tab Q4H PRN Administration Mild Pain 1-3 Hydrocodone Bitart/Acetaminophen 2 tab 04/03/20 12:45 04/04/20 17:22 [place] 5/325 PO 2 tab Q4H PRN Administration For Moderate Pain 4-6 Apixaban 5 mg 04/06/20 09:00 04/06/20 09:16 Eliquis PO 5 mg BID ADRIÁN Administration Ascorbic Acid 500 mg 04/04/20 09:00 04/06/20 09:08 Vitamin C PO 500 mg DAILY ADRIÁN Administration Atenolol 50 mg 04/05/20 21:00 04/06/20 09:07 Tenormin PO 50 mg BID ADRIÁN Administration Atorvastatin Calcium 10 mg 04/03/20 21:00 04/05/20 21:17 Lipitor PO 10 mg HS ADRIÁN Administration Calcium/Vitamin D 250 mg 04/04/20 09:00 04/06/20 09:16 Oscal + Vit D PO 250 mg DAILY ADRIÁN Administration Cyanocobalamin 1,000 mcg 04/05/20 09:00 04/06/20 09:07 Vitamin B-12 PO 1,000 mcg DAILY ADRIÁN Administration Dorzolamide/Timolol 1 drop 04/03/20 21:00 04/06/20 09:16 Cosopt 2-0.5% Ophth Soln R EYE 1 drop BID ADRIÁN Administration Ferrous Gluconate 324 mg 04/04/20 09:00 04/06/20 09:17 Fergon PO 324 mg BID ADRIÁN Administration Folic Acid 1 mg 04/04/20 21:00 04/05/20 21:16 Folvite PO 1 mg HS ADRIÁN Administration Gabapentin 600 mg 04/03/20 21:00 04/05/20 21:17 Neurontin PO 600 mg HS ADRIÁN Administration Fentanyl Citrate 500 mcg/ 100 mls @ 6 mls/hr 04/03/20 12:45 04/04/20 07:19 Bupivacaine HCl 10 ml/ Sodium EPIDURAL 100 mls Chloride INF ADRIÁN Administration Sodium Chloride 1,000 mls @ 100 mls/hr 04/03/20 13:00 04/06/20 11:04 Normal Saline 0.9% IV Not Given .Q10H ADRIÁN Multivitamins 1 tab 04/05/20 09:00 04/06/20 09:07 Theragran PO 1 tab DAILY ADRIÁN Administration Ondansetron HCl 4 mg 04/03/20 12:52 04/05/20 17:41 Zofran IVP 4 mg Q6H PRN Administration Nausea/Vomiting Pyridoxine HCl 50 mg 04/05/20 09:00 04/06/20 09:06 Vitamin B 6 PO 50 mg DAILY ADRIÁN Administration Senna/Docusate Sodium 2 tab 04/04/20 09:00 04/06/20 09:20 Senokot S PO Not Given BID ADRIÁN Tamsulosin HCl 0.8 mg 04/06/20 09:00 04/06/20 09:17 Flomax PO 0.8 mg QAM ADRIÁN Administration Thiamine HCl 100 mg 04/04/20 21:00 04/05/20 21:16 Thiamine PO 100 mg HS ADRIÁN Administration Hosp A/P - Plan Par Afib/flutter HTN HLD Chronic alcoholism Hyponatremia Hypomagnesemia Urinary retention- Max catheter removed PLAN: Cont Atenolol Cont atorvastatin Cont alcohol withdrawal protocol Per Cardiology/ortho, patient was restarted on Eliquis today. Flecainide dced Started on Flomax Hold Potassium
[2020-04-06] MEDS: HYDROcodone/Acetaminophen 5/325 mg Tablet PO PRN (14:58)
[2020-04-06] MEDS ORDERED: BEER 1 CAN PO SCH (17:00)
--- NOTE | 2020-04-16 12:46 | OP ---
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 POSTOPERATIVE DIAGNOSIS: Failed left total hip arthroplasty. PROCEDURE PERFORMED: Left revision total hip arthroplasty. PHOTOGRAPHIC EQUIPMENT ASSEMBLER: Elpidio Orona PA-C BLOOD LOSS: 200. SPECIMENS: None. DRAINS: None. COMPLICATIONS: None. IMPLANTS USED: Paulo MDM head size standard 28 with appropriate polyethylene shell and a Paulo Trident II cup fixed with screws. DESCRIPTION OF PROCEDURE: The patient was taken to the operating room where general anesthesia was induced and placed on right lateral decubitus position. Left hip was prepped and draped in sterile fashion. He received TXA and SCIP protocol antibiotics. Old scar was opened. Dissection was carried down to IT band, which was divided distally and extended proximally. Self-retaining retractor was placed in the wound. Anterior 1/3 of the abductor was taken down. The capsule was excised. Hip was dislocated. Femoral head was removed. Acetabulum was exposed. Acetabulum was removed with Innomed cup extractor. This was fairly easily removed. That just had a little bit of fibrous connective tissue on the back, which was removed. I was able to ream the acetabulum up and get a good press-fit with the Trident II cup, the revision large version of this cup. I did affix it with the screws just for adjunctive fixation. MDM liner was popped into place after appropriate irrigation. Appropriate head was assembled on the back table and impacted onto the trunnion and the hip was reduced with good stability throughout the range of motion. Irrigation performed. Abductor was repaired with #5 Ethibond. IT band was repaired with #2 Quill and #2 Vicryl. Subcu closed with 0 Quill. Skin was closed with Monoderm. Sterile dressings applied. Job ID: [id number]
== END 2020-04-06 15:35 | disposition home or self-care (01) | DRG 467 ==
LOC: SURG A 04-03 09:35 → SJJU 04-03 16:33
PROVIDERS: ADMIT Orthopaedic Surgery; ATTEND Orthopaedic Surgery
PROC: 0SRB0JZ Replacement of Left Hip Joint with Synthetic Substitute, Open Approach (ICD-10-PCS; principal; 2020-04-04)
PROC: 0SPB0JZ Removal of Synthetic Substitute from Left Hip Joint, Open Approach (ICD-10-PCS; 2020-04-04)
DX: T84.011A Broken internal left hip prosthesis, initial encounter (principal); I48.92 Unspecified atrial flutter; E87.1 Hypo-osmolality and hyponatremia; R44.3 Hallucinations, unspecified; I10 Essential (primary) hypertension; E78.5 Hyperlipidemia, unspecified; G89.29 Other chronic pain; M54.9 Dorsalgia, unspecified; M48.00 Spinal stenosis, site unspecified; F10.20 Alcohol dependence, uncomplicated; F43.10 Post-traumatic stress disorder, unspecified; E83.42 Hypomagnesemia; Y83.1 Surgical operation with implant of artificial internal device as the cause of abnormal reaction of the patient, or of later complication, without mention of misadventure at the time of the procedure; N40.1 Benign prostatic hyperplasia with lower urinary tract symptoms; R41.0 Disorientation, unspecified; I48.0 Paroxysmal atrial fibrillation; R06.2 Wheezing; R33.8 Other retention of urine; Z98.890 Other specified postprocedural states; Z87.891 Personal history of nicotine dependence; Z79.82 Long term (current) use of aspirin
CPT/HCPCS: 36415; 71045; 80048; 80069; 83735; 85025; 93005; 93010; 93306; C1713; C1776; J0690; J1100; J1885; J1940; J2001; J2405; J2704; J3010; J3370; J3475; J3490; S0020

== ENCOUNTER 2020-05-25 06:47 | Outpatient (CLI) | payer MEDICARE, OTHER ==
[2020-05-25 14:36] LABS: INR-International Normal Ratio 1.2; PTT 31.8 sec (22.9-36.1); Prothrombin Time 15.4 sec (12.0-14.7)
[2020-05-25 14:51] LABS: Hemoglobin 14.6 g/dL (14.0-18.0); Mean Corpuscular HGB CONC 32.6 g/dL (32.0-36.0); Mean Corpuscular Hemoglobin 31.6 pg (27.0-31.0); Mean Corpuscular Volume 97.1 fL (78.0-98.0); Platelet Count 237 thou/uL (130-400); RBC Distribution Width 11.5 % (11.5-14.5); Red Blood Cell (RBC) Count 4.63 mill/uL (4.70-6.10); White Blood Cell (WBC) Count 6.6 thou/uL (4.8-10.8)
[2020-05-25 16:05] LABS: Anion Gap 14 mmol/L (10-20); BUN (Urea Nitrogen) 16 mg/dL (8.4-25.7); Calc. Creatinine Clearance 0 mL/min (70-130); Calcium 9.5 mg/dL (7.8-10.44); Carbon Dioxide 26 mmol/L (23-31); Chloride 101 mmol/L (98-107); Estimated GFR-MDRD Greater than 90; Glucose 100 mg/dL (83-110); Potassium 4.4 mmol/L (3.5-5.1); Sodium 137 mmol/L (136-145)
[2020-05-26 12:19] LABS: SARS-CoV-2 MS2 Positive; SARS-CoV-2 N Gene Negative; SARS-CoV-2 S Gene Negative; SARS-CoV-2 by NAA Not Detected (NotDetected); SARS-CoV-2 orf1ab Negative
== END 2020-05-25 06:48 | disposition home or self-care (01) ==
LOC: LABBT 06:47
PROVIDERS: ATTEND Internal Medicine Cardiovascular Disease
DX: Z01.818 Encounter for other preprocedural examination (principal); I48.91 Unspecified atrial fibrillation; Z20.828 Contact with and (suspected) exposure to other viral communicable diseases
CPT/HCPCS: 80048; 85027; 85610; 85730; 93005; U0003; 87635; 93010

== ENCOUNTER 2020-05-30 10:31 | Day surgery (SDC) | payer MEDICARE ==
[2020-05-29 13:15] VITALS: BMI 28.1
[2020-05-30] MEDS ORDERED: PROPOFOL 20 ML ONE (11:56)
[2020-05-30] MEDS ORDERED: Lidocaine 1% PF 5 ML VIAL ONE (11:56)
--- NOTE | 2020-05-30 15:57 | OP ---
DATE OF PROCEDURE: 05/30/2020 PROCEDURE PERFORMED: External electrical cardioversion. REASON FOR PROCEDURE: Mr. Emerson is a 74-year-old male with history of a burst atrial fibrillation, previously suppressed with flecainide. He was off this medication anticoagulation for an orthopedic surgery. After adequate re-anticoagulation, a plan is to re-cardiovert him, now back on flecainide. DESCRIPTION OF PROCEDURE: The patient received propofol by Anesthesia specialist. After adequate level of sedation achieved, a synchronized 200-joule shock, converted the patient back to sinus rhythm. There was a significant pause seen post cardioversion, seeing over 6 seconds with a slow sinus rhythm after that, but then completely normalized back to a rate of 60 beats per minute. The patient tolerated the procedure well. No complications noted otherwise. PLAN: Continue flecainide and oral anticoagulation. Follow up and monitor for recurrent arrhythmias. Can consider ablation procedure if this fails. Job ID: [id number]
--- NOTE | 2020-05-30 21:04 | EKG ---
Test Reason : POST CARDIOVERSION Blood Pressure : / mmHG Vent. Rate : 054 BPM Atrial Rate : 054 BPM P-R Int : 278 ms QRS Dur : 098 ms QT Int : 470 ms P-R-T Axes : 016 -54 027 degrees QTc Int : 445 ms Sinus bradycardia with 1st degree A-V block with Premature supraventricular complexes Left anterior fascicular block Cannot rule out Inferior infarct (masked by fascicular block?) , age undetermined Abnormal ECG When compared with ECG of 25-MAY-2020 11:18, (Unconfirmed) Sinus rhythm has replaced Atrial fibrillation Confirmed by Patricia MINAYA ([id number]) on 05/30/2020 9:04:17 PM Referred By: [facility] Confirmed By:Patricia MINAYA
== END 2020-05-30 13:19 | disposition home or self-care (01) ==
LOC: CCL 10:31
PROVIDERS: ATTEND Internal Medicine Cardiovascular Disease
PROC: 5A2204Z Restoration of Cardiac Rhythm, Single (ICD-10-PCS; principal; 2020-05-30)
DX: I48.19 Other persistent atrial fibrillation (principal); I10 Essential (primary) hypertension; E78.5 Hyperlipidemia, unspecified; Z79.01 Long term (current) use of anticoagulants; Z79.899 Other long term (current) drug therapy; Z88.5 Allergy status to narcotic agent; Z87.891 Personal history of nicotine dependence
CPT/HCPCS: 92960; 93005; 93010; J2704

== ENCOUNTER 2020-08-01 05:51 | Outpatient (CLI) | payer MEDICARE ==
[2020-08-01 11:19] LABS: Hemoglobin 15.8 g/dL (14.0-18.0); Mean Corpuscular HGB CONC 33.4 G/DL (32.0-36.0); Mean Corpuscular Hemoglobin 30.7 PG (27.0-33.0); Mean Platelet Volume 9.6 fl (7.4-10.4); Platelet Count 230 10x3/uL (130-400); RBC Distribution Width 13.4 % (11.5-14.5); Red Blood Cell (RBC) Count 5.14 10x6/uL (4.40-5.80)
[2020-08-01 11:32] LABS: Anion Gap 19 mmol/L (10-20); BUN (Urea Nitrogen) 18 mg/dL (8.4-25.7); Calc. Creatinine Clearance 0 mL/min (70-130); Calcium 9.8 mg/dL (7.8-10.44); Carbon Dioxide 22 mmol/L (23-31); Chloride 104 mmol/L (98-107); Estimated GFR-MDRD 88; Glucose 102 mg/dL (83-110); Potassium 4.5 mmol/L (3.5-5.1); Sodium 140 mmol/L (136-145)
[2020-08-01 11:33] LABS: INR-International Normal Ratio 1.1; PTT 27.9 sec (22.0-33.0); Prothrombin Time 11.7 sec (9.5-12.1)
[2020-08-02 18:38] LABS: SARS-CoV-2 MS2 Positive; SARS-CoV-2 N Gene Negative; SARS-CoV-2 S Gene Negative; SARS-CoV-2 by NAA Not Detected (NotDetected); SARS-CoV-2 orf1ab Negative
== END 2020-08-01 05:52 | disposition home or self-care (01) ==
LOC: LABBT 05:51
PROVIDERS: ATTEND Internal Medicine Cardiovascular Disease
DX: Z01.818 Encounter for other preprocedural examination (principal); Z20.828 Contact with and (suspected) exposure to other viral communicable diseases; I48.91 Unspecified atrial fibrillation
CPT/HCPCS: 80048; 85027; 85610; 85730; 93005; U0003; 87635; 93010

== ENCOUNTER 2020-08-06 06:01 | Observation (INO) | payer MEDICARE ==
[2020-08-03 13:24] VITALS: BMI 30.4
[2020-08-06] MEDS ORDERED: Fentanyl 100 MCG/2 ML VIAL ONE ×3 (06:55→14:04)
[2020-08-06] MEDS ORDERED: Heparin 10,000 UNITS/ 10 ML VIAL ONE ×3 (07:05→09:40)
[2020-08-06] MEDS ORDERED: Heparin 25,000 units/D5W 500 ML ONE (08:38)
[2020-08-06] MEDS ORDERED: Phenylephrine 10 MG/ML VIAL ONE (09:14)
[2020-08-06] MEDS ORDERED: Isoproterenol 0.2 MG/1 ML AMP ONE ×2 (11:08→11:09)
[2020-08-06] MEDS ORDERED: Protamine Sulfate 50 MG/5 ML VIAL ONE ×2 (11:44)
--- NOTE | 2020-08-06 13:03 | RAD ---
Portable frontal chest radiograph: 08/06/2020 COMPARISON: 04/05/2020 HISTORY: Evaluate chest following ablation FINDINGS: Bilateral shoulder arthroplasties are present. There is posterior and anterior fusion hardw are within the cervical spine, incompletely assessed on this exam. Heart and mediastinal contours appear stable. Mild linear density in the left base suggests volume lo ss. No focal consolidation or alveolar edema. IMPRESSION: No acute findings.
[2020-08-06] MEDS ORDERED: PROPOFOL 200 MG/20 ML VIAL ONE (14:20)
[2020-08-06] MEDS ORDERED: Rocuronium Bromide 10 MG/ML (10ML VIAL) ONE (14:20)
[2020-08-06] MEDS ORDERED: Lidocaine 1% PF 5 ML VIAL ONE (14:20)
[2020-08-06] MEDS ORDERED: Ketorolac Tromethamine 30 MG/ML VIAL IVP PRN (17:57)
[2020-08-06] MEDS ORDERED: Benzonatate 100 MG CAP PO PRN (17:58)
[2020-08-06] MEDS ORDERED: Methocarbamol 500 MG TAB PO PRN (18:01)
[2020-08-06] MEDS ORDERED: Potassium Chloride 20 MEQ TAB PO PRN (18:04)
[2020-08-06] MEDS ORDERED: Furosemide 40 MG TAB PO PRN (18:04)
[2020-08-06] MEDS: HYDROcodone/Acetaminophen 5/325 mg Tablet PO PRN (19:59)
[2020-08-06] MEDS: Apixaban 5 MG TAB PO SCH (20:01)
[2020-08-06] MEDS: Lisinopril 20 MG TAB PO SCH (20:01)
[2020-08-06] MEDS: Gabapentin 300 MG CAP PO SCH (20:01)
[2020-08-06] MEDS: Sucralfate 1 GM TAB PO SCH (20:01)
[2020-08-06] MEDS: Atenolol 50 MG TAB PO SCH (20:02)
[2020-08-06] MEDS: DorzolamidE/Timolol 2%/0.5% Ophth Soln 10 ml Bottle R EYE SCH (21:00)
[2020-08-06] MEDS ORDERED: Atorvastatin Calcium 10 MG TAB PO SCH (21:00)
[2020-08-06] MEDS ORDERED: Niacin 500 MG TAB PO SCH (21:00)
[2020-08-07] MEDS: HYDROcodone/Acetaminophen 5/325 mg Tablet PO PRN ×2 (06:11→12:11)
[2020-08-07] MEDS ORDERED: Potassium Citrate 10 MEQ TAB PO SCH (08:00)
--- NOTE | 2020-08-07 08:52 | OP ---
DATE OF PROCEDURE: 08/06/2020 PROCEDURE PERFORMED: Electrophysiology study and radiofrequency ablation. REASON FOR PROCEDURE: Mr. Emerson is a 75-year-old male, who has had suboptimal success suppressing the atrial fibrillation with flecainide and cardioversions. He has been anticoagulated with Eliquis over a month and he is here for EP study and radiofrequency ablation/pulmonary venous isolation procedure. DESCRIPTION OF PROCEDURE: The patient received general anesthesia by Anesthesia specialist. Left and right femoral venous areas accessed with a multipurpose needle under ultrasound guidance. On the left side, 8-Montenegrin and 11-Montenegrin sheaths were introduced. Through the 11-Montenegrin sheath, an intracardiac echocardiogram probe was advanced to the right atrium and it was used to monitor the transeptal puncture, the pericardial space, and the catheter manipulation throughout the case. Also through the left femoral vein, a DecaNav mapping diagnostic catheter was advanced to the right atrium, and 3D map of the right atrium, His bundle, and CS locations were obtained, eventually pacing the CS. Following that, from the right femoral venous access, two SL1 sheaths were used to obtain transseptal access with the help of a powered Paxton needle under ultrasound and fluoroscopic guidance. IV heparin was administered prior to that and bolus and drip, IV heparin drip which was adjusted throughout the case to keep ACT over 350. Following that, through the SL1 sheaths, a ThermoCool SFST catheter and a 20-pole Lasso catheter were advanced to the left atrium. 3D map of the left atrium was obtained. Marked left atrial enlargement seen with moderate scarring. Two separate pulmonary veins were noted in each side, although the right superior pulmonary vein had early bifurcation. Following this, standard pulmonary venous isolation was performed with special attention paid to the posterior wall lesions, to avoid excessive heating, monitoring of the esophageal temperature was performed at the ablation location and any heating was met with extra irrigation. The posterior wall was also isolated with a roof and inferoposterior wall line, and the patient remained in atrial fibrillation at this point. Further lesions were placed in the inferior wall and almost complete isolation of the inferior wall over the CS roof was obtained. Also further ablation lesions were placed at the intra-atrial septum, while this burn delivered, the patient converted back to sinus rhythm. Following this, spontaneous occurrence of sustained atrial flutter was noted with cycle length of 300 milliseconds, which was left atrial flutter. Activation mapping demonstrated focal atrial flutter from the left anterior roof area. Ablation lesion terminated atrial flutter at this point. Isuprel was administered at this time and any reconnections re-ablated. Then, Isuprel was stopped. Heparin was stopped and the catheter was pulled back to the left side. The long sheaths were exchanged for short sheaths and protamine was administered to reverse the heparin effect. The intracardiac echocardiogram probe demonstrated no significant pericardial effusion and the cardiac silhouette did not change significantly throughout the procedure. Vascade closure of all four femoral venous access sites was performed. Total ablation time was 28 minutes and 55 seconds. Total lesions placed 113. NUMERICAL FINDINGS: Baseline rhythm was atrial fibrillation with Narrow QRS, QT 410 milliseconds, HV was 85 milliseconds. After ablation, VA conduction was checked through LV pacing by the ablation catheter with retrograde Wenckebach cycle length of 480 milliseconds central retreograde VA conduction was seen. Antegrade Wenckebach cycle length was 410 milliseconds. The AV janusz ERP was 600/420 milliseconds. CONCLUSION: 1. Successful 4 vein pulmonary venous isolation as well as posterior wall isolation performed. 2. Additional almost complete isolation of the basal inferior wall over the CS roof and left atrium was performed. 3. Ablation of fractionated potentials at the interatrial septum and roof terminated the atrial fibrillation. 4. Spontaneously induced left atrial flutter mapped to and ablated at the left anterior roof area. 5. No evidence of accessory pathway with LV pacing. 6. Normal AV janusz and His-Purkinje function seen. No evidence of dual AV janusz physiology present. PLAN: Continue anticoagulation. Monitor for recurrent arrhythmias. Stop flecainide. Job ID: [id number] [facility]
[2020-08-07] MEDS ORDERED: Tamsulosin HCl 0.4 MG CAP PO SCH (09:00)
[2020-08-07] MEDS ORDERED: Multivitamin W/ Minerals 1 TAB PO SCH (09:00)
[2020-08-07] MEDS ORDERED: Loratadine 10 MG TAB PO SCH (09:00)
[2020-08-07] MEDS ORDERED: Ascorbic Acid 500 mg Chewable Tablet PO SCH (09:00)
[2020-08-07] MEDS ORDERED: Hydrochlorothiazide 25 MG TAB PO SCH (09:00)
[2020-08-07] MEDS ORDERED: Calcium Carbonate 600 MG + Vit D TAB PO SCH (09:00)
[2020-08-07] MEDS: Lisinopril 20 MG TAB PO SCH (09:06)
[2020-08-07] MEDS: Apixaban 5 MG TAB PO SCH (09:08)
[2020-08-07] MEDS: Gabapentin 300 MG CAP PO SCH (09:09)
[2020-08-07] MEDS: Sucralfate 1 GM TAB PO SCH ×2 (09:09→12:12)
[2020-08-07] MEDS: Atenolol 50 MG TAB PO SCH (09:10)
[2020-08-07] MEDS: DorzolamidE/Timolol 2%/0.5% Ophth Soln 10 ml Bottle R EYE SCH (09:11)
[2020-08-07 13:21] VITALS: BP 167/92; TEMP 97.7
--- NOTE | 2020-08-08 02:53 | DIS ---
DATE OF ADMISSION: 08/06/2020 DATE OF DISCHARGE: 08/07/2020 DIAGNOSIS: Persistent atrial fibrillation. HISTORY OF PRESENT ILLNESS: This is a 75-year-old gentleman with a history of paroxysmal atrial fibrillation requiring flecainide for suppression. He was taken to the EP lab for pulmonary venous isolation/ablation on 08/06/2020. He underwent successful four-vein pulmonary venous isolation as well as posterior wall isolation, additional almost complete isolation of the basal inferior wall with CS roof and left atrium was performed. He had an inducible left atrial flutter that was mapped and ablated to the left anterior roof area that terminated with ablation. He was noninducible for recurrent atrial arrhythmias at the end of the case. PROCEDURES PERFORMED: Electrophysiology study with three dimensional mapping and pulmonary venous isolation/ablation as well as additional left atrial flutter ablation. REVIEW OF SYSTEMS: The patient denies any heart racing, palpitations, chest pain, pressure, syncope, near syncope, stroke, stroke-like symptoms, shortness of breath, bleeding at the groin sites, nausea, vomiting, diarrhea, gait instability, diet intolerance, or difficulty voiding. He is eager to discharge home and feels well. He does report some discomfort across two shoulders likely from lying on the table for the duration of the procedure. OBJECTIVE: VITAL SIGNS: Temperature 97.7, pulse 81, blood pressure at 159/88, respirations 17, oxygen 92% on room air. GENERAL: The patient is alert and oriented. Speech is clear. Affect is appropriate. No apparent distress. Resting comfortably in bed at the time of the exam. HEENT: Normocephalic and atraumatic. Sclerae anicteric. EOMs are intact. HEART: Rate is irregularly irregular with crisp S1 and S2. LUNGS: Clear to auscultation throughout. ABDOMEN: Obese, soft, and nontender without palpable masses. EXTREMITIES: Warm and dry to touch. Well perfused without clubbing, cyanosis, or edema. Bilateral groin sites are soft, stable. No evidence of bleeding, complications, or hematoma post venous access. Gait was not assessed. NEUROLOGIC: Grossly intact. Telemetry and EKG shows sinus rhythm with no significant PAC burden and no early recurrence of atrial fibrillation. DISCHARGE MEDICATION: Resuming home medications of 1. Flomax. 2. Simvastatin. 3. Potassium. 4. Niacin. 5. Multivitamin. 6. Claritin. 7. Lisinopril. 8. Hydrochlorothiazide. 9. [place]. 10. Glucosamine chondroitin. 11. Gabapentin. 12. Eyedrops. 13. Calcium with vitamin D. 14. Tessalon Perles. 15. Atenolol. 16. Ascorbic acid. 17. Eliquis 5 mg b.i.d. 18. Methocarbamol. New prescriptions provided 1. Carafate 1 g p.o. q.i.d. x2 weeks. 2. Protonix 40 mg daily x1 month. 3. Lasix 40 mg p.o. p.r.n. shortness of breath, peripheral edema, and swelling to be taken with potassium chloride 20 mEq as needed. DISCHARGE INSTRUCTIONS: Light activity for 1 week with no heavy lifting and no driving. May resume normal activity after one week's time if groin sites are not bothersome and if he feels physically able to do so. Followup is scheduled in 6 weeks. He will contact our office for any postablation concerns. I stressed the importance of continuing Eliquis for stroke prophylaxis with no missed doses. CONDITION AT DISCHARGE: Stable. Job ID: [id number]
--- NOTE | 2020-08-10 07:00 | EKG ---
Test Reason : POST ABLATION Blood Pressure : / mmHG Vent. Rate : 083 BPM Atrial Rate : 083 BPM P-R Int : 218 ms QRS Dur : 088 ms QT Int : 400 ms P-R-T Axes : 063 -46 060 degrees QTc Int : 470 ms Sinus rhythm with 1st degree A-V block Left anterior fascicular block Nonspecific T wave abnormality Prolonged QT Abnormal ECG Confirmed by SARA MCGOVERN, LING ([id number]) on 08/10/2020 6:59:51 AM Referred By: YOLI Confirmed By:LING RUIZ MD
== END 2020-08-07 12:55 | disposition home or self-care (01) ==
LOC: CCL 06:01 → 2NO 06:59
PROVIDERS: ADMIT Internal Medicine Cardiovascular Disease; ATTEND Internal Medicine Cardiovascular Disease
PROC: 02583ZZ Destruction of Conduction Mechanism, Percutaneous Approach (ICD-10-PCS; principal; 2020-08-06)
PROC: 02K83ZZ Map Conduction Mechanism, Percutaneous Approach (ICD-10-PCS; 2020-08-06)
PROC: 4A023FZ Measurement of Cardiac Rhythm, Percutaneous Approach (ICD-10-PCS; 2020-08-06)
PROC: 4A0234Z Measurement of Cardiac Electrical Activity, Percutaneous Approach (ICD-10-PCS; 2020-08-06)
DX: I48.0 Paroxysmal atrial fibrillation (principal); I48.92 Unspecified atrial flutter; I10 Essential (primary) hypertension; E78.5 Hyperlipidemia, unspecified; M19.90 Unspecified osteoarthritis, unspecified site; G89.29 Other chronic pain; M54.9 Dorsalgia, unspecified; F32.9 Major depressive disorder, single episode, unspecified; F43.10 Post-traumatic stress disorder, unspecified; Z87.891 Personal history of nicotine dependence; Z79.01 Long term (current) use of anticoagulants; Z79.899 Other long term (current) drug therapy; Z88.5 Allergy status to narcotic agent
CPT/HCPCS: 71045; 76942; 85347 ×2; 93005; 93613; 93622; 93623; 93656; 93657; 93662; C1732 ×3; C1759; 93010; G0378; J1644; J2370; J2704; J2720; J3010

== ENCOUNTER 2020-08-08 17:19 | Inpatient (IN) | payer MEDICARE ==
[2020-08-08 18:08] LABS: #Lymphocytes 0.9 thou/uL (1.20-3.40); #Neutrophils 16.2 thou/uL (1.40-6.50); %Eosinophils 0.1 % (0.0-10.0); %Lymphocytes 4.7 % (21.0-51.0); %Monocytes 5.5 % (0.0-10.0); %Neutrophils 89.7 % (42.0-75.0); Hemoglobin 14.9 g/dL (14.0-18.0); Mean Corpuscular HGB CONC 31.7 g/dL (32.0-36.0); Mean Corpuscular Hemoglobin 30.4 pg (27.0-31.0); Mean Corpuscular Volume 95.8 fL (78.0-98.0); Mean Platelet Volume 7.9 fL (7.4-10.4); Platelet Count 226 thou/uL (130-400); RBC Distribution Width 12.8 % (11.5-14.5); Red Blood Cell (RBC) Count 4.92 mill/uL (4.70-6.10)
--- NOTE | 2020-08-08 18:22 | RAD ---
PORTABLE CHEST: 08/08/20 HISTORY: Dyspnea. COMPARISON: 08/06/20. New infiltrate is now seen throughout the right lung. The left lung appears clear. Mild cardiomegaly is stable. Vascular markings upper normal. IMPRESSION: Mid diffuse rather somewhat confluent infiltrate throughout the right lung consistent with diffuse ri ght lung pneumonia. POS: AGW
[2020-08-08 18:25] LABS: ALT (SGPT) 25 U/L (8-55); AST (SGOT) 36 U/L (5-34); Albumin 4.2 g/dL (3.4-4.8); Alkaline Phosphatase 77 U/L (40-110); Anion Gap 16 mmol/L (10-20); BUN (Urea Nitrogen) 36 mg/dL (8.4-25.7); Bilirubin, Total 1.2 mg/dL (0.2-1.2); CK (CPK) 250 U/L (30-200); Calc. Creatinine Clearance 0 mL/min (70-130); Calcium 10.2 mg/dL (7.8-10.44); Carbon Dioxide 28 mmol/L (23-31); Chloride 96 mmol/L (98-107); Estimated GFR-MDRD 57; Globulin 3.7 g/dL (2.4-3.5); Glucose 162 mg/dL (83-110); Potassium 3.4 mmol/L (3.5-5.1); Protein, Total 7.9 g/dL (5.8-8.1); Sodium 137 mmol/L (136-145)
[2020-08-08] MEDS ORDERED: cefTRIAXone\\ROCEPHIN 2 GM VIAL ONE (18:54)
[2020-08-08 18:55] LABS: CKMB 9.9 ng/mL (0-6.6)
[2020-08-08 19:29] LABS: SARS-CoV-2 NAA Rapid Test Not Detected (NotDetected)
[2020-08-08] MEDS ORDERED: Potassium Chloride 20 MEQ TAB ONE (19:32)
[2020-08-08] MEDS ORDERED: Furosemide 40 MG/4 ML VIAL ONE (19:32)
[2020-08-08] MEDS ORDERED: HYDROcodone/Acetaminophen 5/325 mg Tablet ONE (19:32)
[2020-08-08] MEDS ORDERED: Azithromycin 500 MG in Sodium Chloride 0.9% 250 ML 250 ML IVPB ONE (19:45)
[2020-08-08] MEDS ORDERED: Nitroglycerin 0.4 MG TAB (25 Tab Bottle) SL PRN (19:53)
--- NOTE | 2020-08-08 20:24 | PDOC.BPN ---
- Brief Progress Note [id number] HP dictated
[2020-08-08 21:27] LABS: Critical Call Chem Troponin I RESULT DECREASING; Troponin I 1.564 ng/mL (< 0.028)
[2020-08-09 00:14] LABS: Critical Call Chem Troponin I RESULT DECREASING; Troponin I 1.541 ng/mL (< 0.028)
--- NOTE | 2020-08-09 01:21 | HP ---
CHIEF COMPLAINT: Shortness of breath. HISTORY OF PRESENT ILLNESS: Mr. Emerson is a 75-year-old male, with past medical history of paroxysmal AFib, who just underwent ablation by Dr. Levi, presents to the emergency room with shortness of breath. He said that he was kept in the hospital overnight and was sent home yesterday. Patient started developing shortness of breath before he left. He was given Lasix and potassium pills and sent home. His condition got worse and he had some cough. No fever, no chills. He had one episode of chest pain which resolved. Notes leg swelling. Patient does not have any history of cardiac stents. Ablation was successful. He is already on Eliquis. Workup in the emergency room, patient was in respiratory distress; hypoxic, oxygen saturation in the 70s, placed on BiPAP. Chest x-ray was showing infiltrates more on the right side, suspicious for pneumonia. BNP was elevated and troponin also was elevated at 1.9. Patient just had ablation. In the emergency room, septic workup done, started on IV antibiotics. I discussed the case with the ED physician also. We are going to start the patient on IV Lasix for possible CHF, acute. Patient is already on Eliquis. We will give the patient aspirin. Patient is going to be admitted to the hospital for further management. PAST MEDICAL HISTORY: 1. Paroxysmal atrial fibrillation. 2. Hypertension. 3. Hyperlipidemia. PAST SURGICAL HISTORY: 1. Ablation. 2. Left hip surgery. 3. Right knee surgery. 4. Wrist surgery. 5. Cataract surgery. SOCIAL HISTORY: He is a former tobacco smoker. Drinks socially once a week. FAMILY HISTORY: Reviewed and noncontributory. ALLERGIES: ALLERGIC TO MORPHINE. HOME MEDICATIONS: Please see home medication reconciliation form for updated medications. REVIEW OF SYSTEMS: Review of 14 systems negative, except what is mentioned in history of present illness. PHYSICAL EXAMINATION: GENERAL: Patient is awake, alert, in moderate respiratory distress, on BiPAP. VITAL SIGNS: Blood pressure 134/95, pulse is 75, respiratory rate is 20, and oxygen saturation is 96%. HEAD AND NECK: Normocephalic, atraumatic. Neck is supple. CHEST: Bibasilar crackles. HEART: S1, S2. Regular. ABDOMEN: Obese, soft. Bowel sounds present. NEUROLOGIC: Awake, alert, and oriented x3. No focal deficits. PSYCH: Unable to assess. EXTREMITIES: No clubbing or cyanosis. SKIN: No apparent rash. GENITOURINARY: No suprapubic tenderness. No flank tenderness. LABORATORIES: Sodium 137, potassium 3.4, BUN is 36, creatinine 1.2, and glucose 162. WBC is 18, hemoglobin 14.9, and platelets 226. EKG showed normal sinus rhythm with incomplete right bundle branch, infrequent PVCs. ASSESSMENT: 1. Acute hypoxic respiratory failure. 2. Suspected acute congestive heart failure? 3. Pneumonia cannot be ruled out. 4. Paroxysmal atrial fibrillation, status post ablation. 5. Elevated troponin? Rule out acute coronary syndrome, but patient just underwent ablation. Currently, patient denies chest pain. 6. Hypertension. 7. Hyperlipidemia. PLAN: 1. Admit to IMCU. 2. Telemetry monitoring. 3. Continue with BiPAP. 4. We will start the patient on IV diuretics. 5. Septic workup done. 6. Continue with antibiotics. 7. Serial troponins. 8. Aspirin. 9. Anticoagulation. Patient is already on Eliquis. 10. Consult patient's gas station attendant for evaluation and further recommendations. 11. Reconcile home medications. 12. DVT prophylaxis. Patient is to continue home anticoagulants. 13. Expected length of stay, 2 midnights or more. Job ID: [id number]
[2020-08-09 05:41] LABS: #Lymphocytes 1.3 thou/uL (1.20-3.40); #Monocytes 1.2 thou/uL (0.11-0.59); #Neutrophils 13.2 thou/uL (1.40-6.50); %Basophils 0.1 % (0.0-1.0); %Eosinophils 0.1 % (0.0-10.0); %Monocytes 7.8 % (0.0-10.0); Hemoglobin 14.1 g/dL (14.0-18.0); Mean Corpuscular HGB CONC 31.5 g/dL (32.0-36.0); Mean Corpuscular Hemoglobin 30.2 pg (27.0-31.0); Mean Corpuscular Volume 95.8 fL (78.0-98.0); Mean Platelet Volume 7.5 fL (7.4-10.4); Platelet Count 202 thou/uL (130-400); RBC Distribution Width 12.7 % (11.5-14.5); Red Blood Cell (RBC) Count 4.67 mill/uL (4.70-6.10); White Blood Cell (WBC) Count 15.7 thou/uL (4.8-10.8)
[2020-08-09 06:02] LABS: Anion Gap 15 mmol/L (10-20); BUN (Urea Nitrogen) 35 mg/dL (8.4-25.7); Calc. Creatinine Clearance 92 mL/min (70-130); Calcium 9.7 mg/dL (7.8-10.44); Carbon Dioxide 29 mmol/L (23-31); Chloride 97 mmol/L (98-107); Estimated GFR-MDRD 84; Glucose 115 mg/dL (83-110); Magnesium 1.7 mg/dL (1.6-2.6); Potassium 3.1 mmol/L (3.5-5.1); Sodium 138 mmol/L (136-145)
[2020-08-09] MEDS ORDERED: Furosemide 40 MG/4 ML VIAL ONE (06:58)
[2020-08-09] MEDS: Furosemide 40 MG/4 ML VIAL SLOW IVP SCH ×2 (07:00→15:03)
[2020-08-09] MEDS ORDERED: Aspirin 325 MG TAB ONE (10:02)
[2020-08-09] MEDS: Aspirin 325 MG TAB PO SCH (10:08)
[2020-08-09] MEDS ORDERED: HYDROcodone/Acetaminophen 5/325 mg Tablet PO PRN (14:13)
[2020-08-09] MEDS ORDERED: Potassium Chloride 20 MEQ TAB PO PRN (14:13)
--- NOTE | 2020-08-09 14:16 | PDOC.HOSPP ---
- Subjective Encounter Date: 08/09/20 Encounter Time: 14:15 Subjective: f/u for SOB/CHF exacerbation receiving Lasix IV/O2 supplementation - Objective Vital Signs & Weight: Weight Weight 200 lb 0.054 oz Result Diagrams: 08/09/20 05:31 08/09/20 05:31 Additional Labs: Microbiology 08/08/20 18:57 Venous blood - Right Arm Blood Culture - Preliminary Specimen has been received and culture in progress. No Growth to date. 08/08/20 18:57 Venous blood - Left Arm Blood Culture - Preliminary Specimen has been received and culture in progress. No Growth to date. Laboratory Tests 10/01/17 10/01/17 08/08/20 12:15 12:15 17:34 WBC 8.2 18.0 H Hgb 14.2 Hct 41.2 L Plt Count 264 Neutrophils % 89.7 H Sodium 132 L Potassium 4.3 Chloride 102 Carbon Dioxide 23 Anion Gap 11 BUN 22 Creatinine 0.86 Glucose 100 Lactic Acid Calcium 9.8 Troponin I B-Natriuretic Peptide SARS-CoV-2 Rap RNA(RT-PCR) 08/08/20 08/08/20 08/08/20 17:34 17:34 17:34 WBC Hgb Hct Plt Count Neutrophils % Sodium Potassium 3.4 L Chloride Carbon Dioxide Anion Gap BUN Creatinine Glucose Lactic Acid Calcium Troponin I 1.932 H* B-Natriuretic Peptide 535.6 H SARS-CoV-2 Rap RNA(RT-PCR) 08/08/20 08/08/20 08/08/20 18:05 18:57 20:50 WBC Hgb Hct Plt Count Neutrophils % Sodium Potassium Chloride Carbon Dioxide Anion Gap BUN Creatinine Glucose Lactic Acid 1.6 Calcium Troponin I 1.564 H* B-Natriuretic Peptide SARS-CoV-2 Rap RNA(RT-PCR) Not Detected 08/08/20 08/09/20 08/09/20 23:37 05:31 05:31 WBC Hgb Hct Plt Count Neutrophils % 84.0 H Sodium Potassium Chloride Carbon Dioxide Anion Gap BUN Creatinine Glucose Lactic Acid Calcium Troponin I 1.541 H* B-Natriuretic Peptide 514.1 H SARS-CoV-2 Rap RNA(RT-PCR) Radiology Reviewed by me: Yes (PCXR - diffuse infiltrate RLL) EKG Reviewed by me: Yes (Tele - SR) Hospitalist ROS - Medication Medications: Active Medications Generic Name Dose Route Start Last Admin Trade Name Freq PRN Reason Stop Dose Admin Aspirin 325 mg 08/09/20 09:00 08/09/20 10:08 Aspirin 325 Mg Tab PO 325 mg DAILY ADRIÁN Administration Furosemide 40 mg 08/09/20 06:00 08/09/20 07:00 Furosemide 40 Mg/4 Ml Vial SLOW IVP 40 mg 0600,1400 ADRIÁN Administration - Exam General Appearance: NAD, awake alert Eye: PERRL, anicteric sclera ENT: normocephalic atraumatic, no oropharyngeal lesions Neck: supple, symmetric, no JVD, no thyromegaly, no lymphadenopathy Heart: RRR, no gallops, no rubs, normal peripheral pulses Heart - other findings: S1, S2 Respiratory: normal chest expansion, no tachypnea Respiratory - other findings: few coarse crackles in bases Gastrointestinal: soft, non-tender, non-distended, normal bowel sounds, no palpable masses Extremities: no cyanosis, no clubbing Skin: normal turgor, no lesions Neurological: cranial nerve grossly intact, no new deficit Musculoskeletal: normal tone, generalized weakness Psychiatric: normal affect, A&O x 3 Hosp A/P (1) Acute CHF Code(s): I50.9 - HEART FAILURE, UNSPECIFIED Status: Acute Qualifiers: Heart failure type: diastolic Qualified Code(s): I50.31 - Acute diastolic (congestive) heart failure Plan: Suspected diastolic with last EF 55%, Lasix 40mg IV BID, I/O's, Daily weight (2) Acute respiratory failure with hypoxia Code(s): J96.01 - ACUTE RESPIRATORY FAILURE WITH HYPOXIA Status: Acute Plan: Secondary to #1, continue O2 supplementation (3) Hypokalemia Code(s): E87.6 - HYPOKALEMIA Status: Acute Plan: KCL supplementation, serial K+ monitoring (4) Type 2 acute myocardial infarction Code(s): I21.A1 - MYOCARDIAL INFARCTION TYPE 2 Status: Acute Plan: Secondary to demand ischemia and recent cardiac ablation (5) HTN (hypertension) Code(s): I10 - ESSENTIAL (PRIMARY) HYPERTENSION Status: Chronic Qualifiers: Hypertension type: essential hypertension Qualified Code(s): I10 - Essential (primary) hypertension Plan: Resume home BP regimen, serial monitoring (6) Atrial fibrillation Code(s): I48.91 - UNSPECIFIED ATRIAL FIBRILLATION Status: Chronic Qualifiers: Atrial fibrillation type: paroxysmal Qualified Code(s): I48.0 - Paroxysmal atrial fibrillation Plan: SR currently, resume Eliquis/Atenolol - Plan plan discussed w/ family, continue antibiotics, respiratory therapy, DVT proph w/SCDs Stable currently Continue Lasix 40mg IV BID Serial I/O's, Daily weight Resume home Eliquis KCL supplementation Cardiology consultation O2 supplementation AM lab: CMP, CBC
[2020-08-09 14:31] VITALS: BMI 30.7
[2020-08-09] MEDS ORDERED: Potassium Chloride 20 MEQ TAB PO SCH (14:45)
[2020-08-09] MEDS: Niacin 500 MG TAB PO SCH (21:40)
[2020-08-09] MEDS: Potassium Chloride 20 MEQ TAB PO SCH (21:40)
[2020-08-09] MEDS: Lisinopril 20 MG TAB PO SCH (21:40)
[2020-08-09] MEDS: Gabapentin 300 MG CAP PO SCH (21:41)
[2020-08-09] MEDS: Atenolol 50 MG TAB PO SCH (21:42)
[2020-08-09] MEDS: Atorvastatin Calcium 10 MG TAB PO SCH (21:42)
[2020-08-09] MEDS: Apixaban 5 MG TAB PO SCH (21:42)
[2020-08-09] MEDS: DorzolamidE/Timolol 2%/0.5% Ophth Soln 10 ml Bottle R EYE SCH (21:45)
--- NOTE | 2020-08-09 23:32 | CON ---
DATE OF CONSULTATION: 08/09/2020 INDICATION FOR CONSULTATION: A 75-year-old gentleman, with hypoxemia, who has a long history of atrial fibrillation, who underwent an ablation earlier this week by Dr. Levi. He was kept overnight and then sent home. He was discharged on the , I believe of July. He then developed a cough and shortness of breath and presented back to the emergency room with O2 saturation in the 70% range apparently. A chest x-ray showed what appeared to be a right-sided pneumonia. He was placed on antibiotics. We were asked to see the patient. He was also on BiPAP. I am seeing him in this afternoon. He does appear to be more stable. His cardiac enzymes were slightly elevated, but this is not unusual after undergoing ablation. His BNP is 519, which is somewhat elevated. MB was 9.9 with troponin I was 1.9, decreased down to 1.5. It is not indicative of myocardial infarction, but it was most likely due to the ablation. At this time, he is feeling quite well. He is sitting in the room. He does not have an oxygen on. He is somewhat confused. He does have some dementia, but at this time, he has no complaints and he denied any chest pain to me and he mainly complains of shortness of breath and the cough. PAST MEDICAL HISTORY: Significant for the atrial fibrillation, hypertension, and dyslipidemia. He has had a history of ablations in the past. He has had a left hip surgery, right knee surgery, wrist surgery, and cataract surgery. He has had neck surgery also. FAMILY HISTORY: Father had some colon cancer. He has also some history. His mother has history of renal failure. SOCIAL HISTORY: He is . He has one child, who is alive and well. He does not smoke, he stopped many years ago, but he did smoke in the past. He did drink alcohol. I think he has cut back some, but still continues to drink, I believe. ALLERGIES: NONE. MEDICATIONS: Prior to admission included; 1. Sucralfate. 2. Potassium chloride 20 mEq a day. 3. Furosemide 40 mg a day. 4. Pantoprazole. 5. Gabapentin. 6. Lisinopril 20 mg b.i.d. 7. Simvastatin 20 mg a day. 8. Hydrochlorothiazide 25 mg once a day. 9. Potassium 99 mg. 10. Methocarbamol. 11. Dorzolamide. 12. Eliquis 5 mg b.i.d. 13. Atenolol 50 mg b.i.d. 14. Niacin 500 mg q.p.m. 15. Spade. 16. Tamsulosin. 17. Loratadine. REVIEW OF SYSTEMS: Actually a 12-point review of systems unremarkable, except what is noted in the history of present illness. PHYSICAL EXAMINATION: GENERAL: Reveals a well-developed, well-nourished gentleman, who is in no acute distress at this time. He is alert. He is oriented. He does have some degree of dementia and gets confused about issues, but otherwise he is doing very well. VITAL SIGNS: His blood pressure is 166/92, he is afebrile, heart rate 76 and shows a sinus rhythm, respiratory rate is 18, and O2 saturation 96%. Blood pressure earlier was 170/89, but now his most recent blood pressure 166/92. HEENT EXAMINATION: Shows the head to be normocephalic and atraumatic. There is no JVD noted. The thyroid did not appear to be enlarged. CHEST: Shows bibasilar crackles, but there is definitely some rhonchi noted throughout the entire right side and right chest. CARDIOVASCULAR: Reveals a regular rate and rhythm with normal S1, S2. There were no significant murmurs, heaves, thrills, bruits, or rubs. ABDOMEN: Soft and nontender. Positive bowel sounds are present. EXTREMITIES: Showed no clubbing, cyanosis, or edema. Pedal pulses are present. NEUROLOGIC: Again, he is awake, alert, and is oriented at this time, but does have some degree of dementia and confused with some issues. SKIN: There are no rashes. Skin is warm and dry. LABORATORY DATA: Shows a WBC of 15.7, hemoglobin 14.1, and platelet count was 202,000. Sodium is 138, potassium 3.1, BUN 35 with a creatinine 0.88, blood sugar was 115. Troponin I as noted above. BNP is as noted above. Chest x-ray shows right lung infiltrate, rather diffuse, which is compatible with pneumonia. EKG shows a normal sinus rhythm with no acute changes. IMPRESSION: 1. A 75-year-old gentleman, who is status post ablation several days ago. Echocardiogram shows no evidence of tamponade. He did have a very small pericardial effusion. Ejection fraction was within normal limits. He has mild diastolic dysfunction with very mild tricuspid and mitral valve regurgitation. 2. Pneumonia. He has been treated with antibiotics. He most likely will be in the hospital for day or two and then hopefully can go home and will be on p.o. antibiotics. 3. History of atrial fibrillation, which is resolved after ablation. He remains stable. 4. Hypertension. We will need to continue to adjust his medications to lower the blood pressure slightly. 5. Hyperlipidemia. He has been on statin medications and we can continue these medications. We will be more than happy to continue to follow the patient with you. Job ID: [id number]
[2020-08-10 04:34] LABS: #Eosinphils 0.1 thou/uL (0.0-0.7); #Lymphocytes 1.4 thou/uL (1.20-3.40); #Monocytes 1.3 thou/uL (0.11-0.59); #Neutrophils 9.5 thou/uL (1.40-6.50); %Basophils 0.3 % (0.0-1.0); %Eosinophils 0.6 % (0.0-10.0); %Lymphocytes 11.2 % (21.0-51.0); %Monocytes 10.7 % (0.0-10.0); %Neutrophils 77.1 % (42.0-75.0); Hemoglobin 14.5 g/dL (14.0-18.0); Mean Corpuscular HGB CONC 32.6 g/dL (32.0-36.0); Mean Corpuscular Hemoglobin 31.3 pg (27.0-31.0); Mean Platelet Volume 7.8 fL (7.4-10.4); Platelet Count 215 thou/uL (130-400); RBC Distribution Width 12.6 % (11.5-14.5); Red Blood Cell (RBC) Count 4.62 mill/uL (4.70-6.10); White Blood Cell (WBC) Count 12.3 thou/uL (4.8-10.8)
[2020-08-10 04:58] LABS: ALT (SGPT) 29 U/L (8-55); AST (SGOT) 30 U/L (5-34); Albumin 3.6 g/dL (3.4-4.8); Alkaline Phosphatase 62 U/L (40-110); Anion Gap 15 mmol/L (10-20); BUN (Urea Nitrogen) 35 mg/dL (8.4-25.7); Bilirubin, Total 0.9 mg/dL (0.2-1.2); Calc. Creatinine Clearance 96 mL/min (70-130); Calcium 9.5 mg/dL (7.8-10.44); Carbon Dioxide 32 mmol/L (23-31); Chloride 95 mmol/L (98-107); Estimated GFR-MDRD 88; Globulin 3.2 g/dL (2.4-3.5); Glucose 106 mg/dL (83-110); Potassium 3.2 mmol/L (3.5-5.1); Protein, Total 6.8 g/dL (5.8-8.1); Sodium 139 mmol/L (136-145)
[2020-08-10] MEDS: Furosemide 40 MG/4 ML VIAL SLOW IVP SCH ×2 (05:23→13:54)
[2020-08-10] MEDS: Aspirin 325 MG TAB PO SCH (08:19)
[2020-08-10] MEDS: Hydrochlorothiazide 25 MG TAB PO SCH (08:19)
[2020-08-10] MEDS: Lisinopril 20 MG TAB PO SCH ×2 (08:19→20:49)
[2020-08-10] MEDS: Apixaban 5 MG TAB PO SCH ×2 (08:19→20:49)
[2020-08-10] MEDS: Atenolol 50 MG TAB PO SCH ×2 (08:19→20:49)
[2020-08-10] MEDS: Multivitamin W/ Minerals 1 TAB PO SCH (08:19)
[2020-08-10] MEDS: Potassium Chloride 20 MEQ TAB PO SCH ×2 (08:20→20:50)
[2020-08-10] MEDS: Tamsulosin HCl 0.4 MG CAP PO SCH (08:20)
[2020-08-10] MEDS: Amlodipine 5 MG TAB PO SCH (08:20)
[2020-08-10] MEDS: Ascorbic Acid 500 mg Chewable Tablet PO SCH (08:20)
[2020-08-10] MEDS: Gabapentin 300 MG CAP PO SCH ×2 (08:20→20:48)
[2020-08-10] MEDS: DorzolamidE/Timolol 2%/0.5% Ophth Soln 10 ml Bottle R EYE SCH ×2 (08:21→20:59)
--- NOTE | 2020-08-10 09:51 | PDOC.HOSPP ---
- Subjective Encounter Date: 08/10/20 Encounter Time: 09:40 Subjective: f/u for CHF exacerbation/RLL infiltrate concerning for mild PNA receiving IV Lasix/Levaquin. Feels better overall with mild cough. Less SOB. - Objective Vital Signs & Weight: Vital Signs (12 hours) Temp Pulse Resp BP Pulse Ox 08/10/20 08:15 98.0 F 72 17 166/93 H 96 08/10/20 04:00 97.5 F L 70 27 H 165/90 H 96 08/10/20 01:40 91 L Weight Weight 202 lb I&O: 08/09/20 08/10/20 08/11/20 06:59 06:59 06:59 Intake Total 960 Output Total 1500 Balance -540 Result Diagrams: 08/10/20 04:09 08/10/20 04:09 Hospitalist ROS - Medication Medications: Active Medications Generic Name Dose Route Start Last Admin Trade Name Freq PRN Reason Stop Dose Admin Amlodipine Besylate 5 mg 08/10/20 09:00 08/10/20 08:20 Amlodipine 5 Mg Tab PO 5 mg DAILY ADRIÁN Administration Apixaban 5 mg 08/09/20 21:00 08/10/20 08:19 Apixaban 5 Mg Tab PO 5 mg BID ADRIÁN Administration Ascorbic Acid 500 mg 08/10/20 09:00 08/10/20 08:20 Ascorbic Acid 500 Mg Chewable Tablet PO 500 mg DAILY ADRIÁN Administration Aspirin 325 mg 08/09/20 09:00 08/10/20 08:19 Aspirin 325 Mg Tab PO Not Given DAILY ADRIÁN Atenolol 50 mg 08/09/20 21:00 08/10/20 08:19 Atenolol 50 Mg Tab PO 50 mg BID ADRIÁN Administration Atorvastatin Calcium 10 mg 08/09/20 21:00 08/09/20 21:42 Atorvastatin Calcium 10 Mg Tab PO 10 mg HS ADRIÁN Administration Dorzolamide/Timolol 1 drop 08/09/20 21:00 08/10/20 08:21 Dorzolamide/Timolol 2%/0.5% Ophth Soln 10 Ml Bottle R EYE 1 mg BID ADRIÁN Administration Furosemide 40 mg 08/09/20 06:00 08/10/20 05:23 Furosemide 40 Mg/4 Ml Vial SLOW IVP 40 mg 0600,1400 ADRIÁN Administration Gabapentin 300 mg 08/09/20 21:00 08/10/20 08:20 Gabapentin 300 Mg Cap PO 300 mg BID ADRIÁN Administration Hydrochlorothiazide 25 mg 08/10/20 09:00 08/10/20 08:19 Hydrochlorothiazide 25 Mg Tab PO 25 mg QAM ADRIÁN Administration Levofloxacin 750 mg/ Device 150 mls @ 100 mls/hr 08/09/20 20:00 08/09/20 21:39 IVPB 150 mls Q24HR ADRIÁN Administration Iron/Minerals/Multivitamins 1 tab 08/10/20 09:00 08/10/20 08:19 Multivitamin W/ Minerals 1 Tab PO 1 tab DAILY ADRIÁN Administration Lisinopril 20 mg 08/09/20 21:00 08/10/20 08:19 Lisinopril 20 Mg Tab PO 20 mg BID ADRIÁN Administration Niacin 500 mg 08/09/20 21:00 08/09/20 21:40 Niacin 500 Mg Tab PO 500 mg HS ADRIÁN Administration Potassium Chloride 40 meq 08/09/20 21:00 08/10/20 08:20 Potassium Chloride 20 Meq Tab PO 40 meq BID ADRIÁN Administration Tamsulosin HCl 0.4 mg 08/10/20 09:00 08/10/20 08:20 Tamsulosin Hcl 0.4 Mg Cap PO 0.4 mg QAM ADRIÁN Administration - Exam General Appearance: NAD, awake alert Eye: PERRL, anicteric sclera ENT: normocephalic atraumatic, no oropharyngeal lesions Neck: supple, symmetric, no JVD, no thyromegaly, no lymphadenopathy Heart: RRR, no gallops, no rubs, normal peripheral pulses Heart - other findings: S1, S2 Respiratory: normal chest expansion, no tachypnea Respiratory - other findings: coarse sounds in R base, few basilar crackles Gastrointestinal: soft, non-tender, non-distended, normal bowel sounds, no palpable masses Extremities: no cyanosis, no clubbing, no edema Skin: normal turgor, no lesions Neurological: cranial nerve grossly intact, no new deficit Musculoskeletal: normal tone, generalized weakness Psychiatric: normal affect, oriented to person, oriented to place Hosp A/P (1) Acute CHF Code(s): I50.9 - HEART FAILURE, UNSPECIFIED Status: Acute Qualifiers: Heart failure type: diastolic Qualified Code(s): I50.31 - Acute diastolic (congestive) heart failure Plan: Diastolic in nature with preserved EF 55-60%, continue Lasix 40mg IV BID, serial I/O's, Daily weight (2) Pneumonia Code(s): J18.9 - PNEUMONIA, UNSPECIFIED ORGANISM Status: Acute Qualifiers: Laterality: right Lung location: lower lobe of lung Plan: Suspected, likely gm + cocci, continue Levaquin (3) Acute respiratory failure with hypoxia Code(s): J96.01 - ACUTE RESPIRATORY FAILURE WITH HYPOXIA Status: Acute Plan: Improved, wean off O2 as clinically indicated (4) Hypokalemia Code(s): E87.6 - HYPOKALEMIA Status: Acute Plan: KCL 40meq BID, serial K+ monitoring (5) Type 2 acute myocardial infarction Code(s): I21.A1 - MYOCARDIAL INFARCTION TYPE 2 Status: Acute Plan: Likely demand ischemia in conjunction with recent ablation (6) HTN (hypertension) Code(s): I10 - ESSENTIAL (PRIMARY) HYPERTENSION Status: Chronic Qualifiers: Hypertension type: essential hypertension Qualified Code(s): I10 - Essenti al (primary) hypertension (7) Atrial fibrillation Code(s): I48.91 - UNSPECIFIED ATRIAL FIBRILLATION Status: Chronic Qualifiers: Atrial fibrillation type: paroxysmal Qualified Code(s): I48.0 - Paroxysmal atrial fibrillation Plan: SR currently s/p ablation - Plan plan discussed w/ family, continue antibiotics, out of bed/ambulate, DVT proph w/SCDs Stable currently Continue Lasix 40mg IV BID Serial I/O's, Daily weight Resume home Eliquis KCL supplementation Cardiology consultation appreciated O2 supplementation PRN Continue Levaquin AM lab: BMP, CBC
[2020-08-10] MEDS: Niacin 500 MG TAB PO SCH (20:48)
[2020-08-10] MEDS: Atorvastatin Calcium 10 MG TAB PO SCH (20:50)
[2020-08-11 04:34] LABS: #Eosinphils 0.2 thou/uL (0.0-0.7); #Lymphocytes 1.6 thou/uL (1.20-3.40); #Monocytes 1.3 thou/uL (0.11-0.59); #Neutrophils 6.2 thou/uL (1.40-6.50); %Basophils 0.2 % (0.0-1.0); %Eosinophils 2.7 % (0.0-10.0); %Lymphocytes 17.2 % (21.0-51.0); %Monocytes 14.1 % (0.0-10.0); %Neutrophils 65.8 % (42.0-75.0); Hemoglobin 14.8 g/dL (14.0-18.0); Mean Corpuscular HGB CONC 33.5 g/dL (32.0-36.0); Mean Corpuscular Hemoglobin 32.2 pg (27.0-31.0); Mean Corpuscular Volume 95.9 fL (78.0-98.0); Mean Platelet Volume 7.4 fL (7.4-10.4); Platelet Count 238 thou/uL (130-400); RBC Distribution Width 12.5 % (11.5-14.5); White Blood Cell (WBC) Count 9.4 thou/uL (4.8-10.8)
[2020-08-11 04:55] LABS: Anion Gap 16 mmol/L (10-20); BUN (Urea Nitrogen) 30 mg/dL (8.4-25.7); Calc. Creatinine Clearance 90 mL/min (70-130); Calcium 9.5 mg/dL (7.8-10.44); Carbon Dioxide 32 mmol/L (23-31); Chloride 94 mmol/L (98-107); Estimated GFR-MDRD 81; Glucose 113 mg/dL (83-110); Potassium 3.4 mmol/L (3.5-5.1); Sodium 139 mmol/L (136-145)
[2020-08-11] MEDS: Furosemide 40 MG/4 ML VIAL SLOW IVP SCH ×2 (05:05→13:50)
[2020-08-11] MEDS: Potassium Chloride 20 MEQ TAB PO SCH ×2 (09:31→21:39)
[2020-08-11] MEDS: Hydrochlorothiazide 25 MG TAB PO SCH (09:32)
[2020-08-11] MEDS: Multivitamin W/ Minerals 1 TAB PO SCH (09:32)
[2020-08-11] MEDS: Ascorbic Acid 500 mg Chewable Tablet PO SCH (09:32)
[2020-08-11] MEDS: Tamsulosin HCl 0.4 MG CAP PO SCH (09:33)
[2020-08-11] MEDS: Gabapentin 300 MG CAP PO SCH ×2 (09:33→21:40)
[2020-08-11] MEDS: Aspirin 325 MG TAB PO SCH (09:33)
[2020-08-11] MEDS: Apixaban 5 MG TAB PO SCH ×2 (09:33→21:39)
[2020-08-11] MEDS: DorzolamidE/Timolol 2%/0.5% Ophth Soln 10 ml Bottle R EYE SCH ×2 (09:34→21:41)
[2020-08-11] MEDS: Amlodipine 5 MG TAB PO SCH (09:34)
[2020-08-11] MEDS: Lisinopril 20 MG TAB PO SCH ×2 (09:34→21:40)
[2020-08-11] MEDS: Atenolol 50 MG TAB PO SCH ×2 (09:34→21:39)
[2020-08-11] MEDS ORDERED: Electrolyte Replacement Protoc 1 EACH EACH FS SCH (10:00)
[2020-08-11] MEDS ORDERED: Electrolyte Replacement Protocol FS PRN (14:30)
--- NOTE | 2020-08-11 16:34 | EKG ---
Test Reason : DYSPNEA Blood Pressure : / mmHG Vent. Rate : 082 BPM Atrial Rate : 082 BPM P-R Int : 222 ms QRS Dur : 098 ms QT Int : 414 ms P-R-T Axes : 057 -37 031 degrees QTc Int : 483 ms Sinus rhythm with 1st degree A-V block with occasional Premature ventricular complexes Left axis deviation Incomplete right bundle branch block Prolonged QT Abnormal ECG Confirmed by CAMRYN STEPHENS DO ([id number]), associate entertainment editor VIR[place] EDWARDS ([id number]) on 08/11/2020 4:34:02 PM Referred By: KAT Confirmed By:CAMRYN STEPHENS DO
--- NOTE | 2020-08-11 19:48 | PDOC.HOSPP ---
- Subjective Encounter Date: 08/11/20 Encounter Time: 11:00 Subjective: Seen and examined in bed. He had episodes of desaturation off oxygen otherwise denies any chest pain cough or shortness of breath. There were no significant events overnight. - Objective Vital Signs & Weight: Vital Signs (12 hours) Temp Pulse Resp BP BP Pulse Ox 08/11/20 15:50 97.8 F 79 18 121/73 93 L 08/11/20 11:50 97.9 F 80 16 135/78 94 L 08/11/20 09:34 72 133/84 08/11/20 07:55 93 L 08/11/20 07:54 97.2 F L 72 16 134/77 91 L Weight Weight 193 lb 3.2 oz I&O: 08/10/20 08/11/20 08/12/20 06:59 06:59 06:59 Intake Total 960 840 750 Output Total 1500 Balance -540 840 750 Result Diagrams: 08/11/20 04:15 08/11/20 04:15 EKG Reviewed by me: Yes (Normal sinus rhythm on telemetry) Hospitalist ROS - Medication Medications: Active Medications Generic Name Dose Route Start Last Admin Trade Name Freq PRN Reason Stop Dose Admin Amlodipine Besylate 5 mg 08/10/20 09:00 08/11/20 09:34 Amlodipine 5 Mg Tab PO 5 mg DAILY ADRIÁN Administration Apixaban 5 mg 08/09/20 21:00 08/11/20 09:33 Apixaban 5 Mg Tab PO 5 mg BID ADRIÁN Administration Ascorbic Acid 500 mg 08/10/20 09:00 08/11/20 09:32 Ascorbic Acid 500 Mg Chewable Tablet PO 500 mg DAILY ADRIÁN Administration Aspirin 325 mg 08/09/20 09:00 08/11/20 09:33 Aspirin 325 Mg Tab PO Not Given DAILY ADRIÁN Atenolol 50 mg 08/09/20 21:00 08/11/20 09:34 Atenolol 50 Mg Tab PO 50 mg BID ADRIÁN Administration Atorvastatin Calcium 10 mg 08/09/20 21:00 08/10/20 20:50 Atorvastatin Calcium 10 Mg Tab PO 10 mg HS ADRIÁN Administration Dorzolamide/Timolol 1 drop 08/09/20 21:00 08/11/20 09:34 Dorzolamide/Timolol 2%/0.5% Ophth Soln 10 Ml Bottle R EYE 1 drop BID ADRIÁN Administration Furosemide 40 mg 08/09/20 06:00 08/11/20 13:50 Furosemide 40 Mg/4 Ml Vial SLOW IVP 40 mg 0600,1400 ADRIÁN Administration Gabapentin 300 mg 08/09/20 21:00 08/11/20 09:33 Gabapentin 300 Mg Cap PO 300 mg BID ADRIÁN Administration Hydrochlorothiazide 25 mg 08/10/20 09:00 08/11/20 09:32 Hydrochlorothiazide 25 Mg Tab PO 25 mg QAM ADRIÁN Administration Levofloxacin 750 mg/ Device 150 mls @ 100 mls/hr 08/09/20 20:00 08/10/20 20:47 IVPB 150 mls Q24HR ADRIÁN Administration Iron/Minerals/Multivitamins 1 tab 08/10/20 09:00 08/11/20 09:32 Multivitamin W/ Minerals 1 Tab PO 1 tab DAILY ADRIÁN Administration Lisinopril 20 mg 08/09/20 21:00 08/11/20 09:34 Lisinopril 20 Mg Tab PO 20 mg BID ADRIÁN Administration Niacin 500 mg 08/09/20 21:00 08/10/20 20:48 Niacin 500 Mg Tab PO 500 mg HS ADRIÁN Administration Potassium Chloride 40 meq 08/09/20 21:00 08/11/20 09:31 Potassium Chloride 20 Meq Tab PO 40 meq BID ADRIÁN Administration Tamsulosin HCl 0.4 mg 08/10/20 09:00 08/11/20 09:33 Tamsulosin Hcl 0.4 Mg Cap PO 0.4 mg QAM ADRIÁN Administration - Exam General Appearance: awake alert Heart: RRR, no murmur, no gallops, normal peripheral pulses Respiratory - other findings: Mild bilateral wheezing. Gastrointestinal: soft, non-tender, non-distended, normal bowel sounds Extremities: no cyanosis, no clubbing, no edema Neurological: cranial nerve grossly intact, no focal deficits Psychiatric: normal affect, A&O x 3 Hosp A/P - Plan 75-year-old male patient history of A. fib, recent ablation presenting with worsening shortness of breath likely due to pneumonia however there are concerns for heart failure exacerbation. Acute hypoxic respiratory failure Pneumonia versus heart failure Echo shows preserved EF. We will continue oxygen therapy and wean off We will discharge off oxygen if still requiring oxygen. Pneumonia Continue antibioticslevofloxacin Monitor CBC and temperature Heart failure preserved ejection fraction Diuresis Monitor A. fib Continue anticoagulation Continue home meds. Appreciate cardiology input. VT prophylaxis therapeutic on apixaban CODE STATUSfull code
[2020-08-11] MEDS: Niacin 500 MG TAB PO SCH (21:40)
[2020-08-11] MEDS: Atorvastatin Calcium 10 MG TAB PO SCH (21:40)
[2020-08-12] MEDS: Furosemide 40 MG/4 ML VIAL SLOW IVP SCH ×2 (06:00→13:16)
[2020-08-12 07:43] LABS: Magnesium 1.7 mg/dL (1.6-2.6); Potassium 3.5 mmol/L (3.5-5.1)
[2020-08-12] MEDS ORDERED: Potassium Chloride 20 MEQ TAB PO SCH (08:30)
[2020-08-12] MEDS ORDERED: Magnesium 2 GM/50 ML 2 GM in Premix Bag 1 BAG IVPB SCH (08:30)
[2020-08-12] MEDS: Atenolol 50 MG TAB PO SCH (09:18)
[2020-08-12] MEDS: Gabapentin 300 MG CAP PO SCH (09:21)
[2020-08-12] MEDS: Hydrochlorothiazide 25 MG TAB PO SCH (09:21)
[2020-08-12] MEDS: Multivitamin W/ Minerals 1 TAB PO SCH (09:21)
[2020-08-12] MEDS: Apixaban 5 MG TAB PO SCH (09:23)
[2020-08-12] MEDS: Amlodipine 5 MG TAB PO SCH (09:24)
[2020-08-12] MEDS: Ascorbic Acid 500 mg Chewable Tablet PO SCH (09:24)
[2020-08-12] MEDS: Lisinopril 20 MG TAB PO SCH (09:24)
[2020-08-12] MEDS: Tamsulosin HCl 0.4 MG CAP PO SCH (09:24)
[2020-08-12] MEDS: DorzolamidE/Timolol 2%/0.5% Ophth Soln 10 ml Bottle R EYE SCH (09:25)
[2020-08-12] MEDS: Potassium Chloride 20 MEQ TAB PO SCH (09:25)
[2020-08-12] MEDS: Aspirin 325 MG TAB PO SCH (09:29)
[2020-08-12 13:01] VITALS: BP 104/55; TEMP 97.8
[2020-08-12 13:48] LABS: Potassium 3.9 mmol/L (3.5-5.1)
--- NOTE | 2020-08-12 19:06 | PDOC.DS.DS ---
Provider - Provider Date of Admission: 08/08/20 19:45 Date of Discharge: 08/12/20 Admitting Provider: Karen Huber MD Primary Care Physician: SARAH Harrison Course - Hospital Course Hospital Course: This is a 75-year-old male patient with a history of paroxysmal A. fib, hypertension and hyperlipidemia who was admitted on account of shortness of breath. Prior to presentation he had just had ablation for atrial fibrillation. On initial evaluation chest x-ray shows infiltrates more on the right side of his lung suspicious for pneumonia. His BNP was elevated and his echocardiogram was concerning for diastolic dysfunction. He was subsequently monitored for pneumonia on Levaquin IV. He required oxygen and was eventually weaned off and was saturating normally on room air. He was discharged to complete 7 days of Levaquin on outpatient basis. Resuscitation Status: 08/08/20 19:53 Resuscitation Status Routine Resuscitation Status: FULL: Full Resuscitation - Labs Lab Results: 08/11/20 04:15 08/12/20 13:20 Abnormal Lab Results - Last 48 hrs 08/11/20 04:15: Potassium 3.4 L, Chloride 94 L, Carbon Dioxide 32 H, BUN 30 H 08/11/20 04:15: RBC 4.60 L, MCH 32.2 H, Lymphocytes % 17.2 L, Monocytes % 14.1 H, Monocytes # 1.3 H Microbiology - Entire Visit 08/08/20 18:57 Venous blood - Left Arm Blood Culture - Preliminary NO GROWTH AT 48 HOURS 08/08/20 18:57 Venous blood - Right Arm Blood Culture - Preliminary NO GROWTH AT 48 HOURS - Physical Exam Vitals: Vital Signs (12 hours) Temp Pulse Resp BP BP BP Pulse Ox 08/12/20 12:00 97.8 F 74 17 104/55 L 98 08/12/20 09:24 76 114/70 08/12/20 09:18 76 114/70 08/12/20 08:00 97.7 F 76 16 114/70 96 Weight Weight 190 lb 14.4 oz Physical Exam: The patient was seen and examined on the day of discharge. General: In no acute distress. Respiratory system: Air entry adequate bilaterally. CVS: S1-S2 present. No murmurs gallops or rubs. Abdomen: Benign Extremities: No edema Problem - Discharge Plan Assessment: Pneumonia To complete a week course of Levaquin. To have a follow-up chest x-ray after about 8 weeks. Atrial fibrillation Status post ablation Follow-up with cardiology Plan - Discharge Medications Prescriptions: Levofloxacin [Levaquin] 750 mg PO DAILY #3 tab Home Medications: Medication Instructions Recorded Confirmed Type Gabapentin 300 mg PO BID 03/22/14 08/09/20 History Hydrochlorothiazide 25 mg PO QAM 03/22/14 08/09/20 History Lisinopril 20 mg PO BID 03/22/14 08/09/20 History Simvastatin 20 mg PO QPM 03/22/14 08/09/20 History Ascorbic Acid [Vitamin C] 500 mg PO DAILY 09/03/17 08/09/20 History Calcium Carb, Citrate/Vit D3 1 each PO DAILY 09/03/17 08/09/20 History [Citracal Calcium + D Slow Release 1200] Dorzolamide HCl/Timolol Maleat 1 drop R EYE BID 09/03/17 08/09/20 History [Dorzolamide HCl/Timolol Maleate Ophth] Glucosam/Chond/Hyalu/Cf Borate 1 each PO BID 09/03/17 08/09/20 History [Move Free [employer] Health Tablet] Methocarbamol 750 mg PO BID PRN 09/03/17 08/09/20 History Multivitamin W/ Minerals 1 tab PO DAILY 09/03/17 08/09/20 History [Theragran M] Benzonatate [Tessalon] 1 cap PO Q8HR PRN 08/11/19 08/09/20 History Apixaban [Eliquis] 5 mg PO BID #60 tab 04/06/20 08/09/20 Rx Atenolol 50 mg PO BID #60 tablet 04/06/20 08/09/20 Rx HYDROcodone Bit/APAP 5/325 [[place]] 1 tab PO TID PRN 05/29/20 08/09/20 History Niacin (Inositol Niacinate) 500 mg PO HS 05/29/20 08/09/20 History [Niacin] Tamsulosin HCl [Flomax] 0.4 mg PO QAM 05/29/20 08/09/20 History Loratadine [Claritin] 10 mg PO DAILY 08/03/20 08/09/20 History Furosemide [Lasix] 40 mg PO DAILYPRN PRN #7 tab 08/07/20 08/09/20 Rx Pantoprazole [Protonix] 40 mg PO DAILY #30 tab 08/07/20 08/09/20 Rx Potassium Chloride [K-Dur] 20 meq PO DAILYPRN PRN #7 tab 08/07/20 08/09/20 Rx Sucralfate [Carafate] 1 gm PO QID #56 tab 08/07/20 08/09/20 Rx Levofloxacin [Levaquin] 750 mg PO DAILY #3 tab 08/12/20 Rx Allergies: morphine Adverse Reaction (Verified 08/12/20 09:33) Emesis - Discharge Instructions Activity:: Activity as Tolerated Nourishment:: Heart Healthy Diet, Low Sodium Diet - Follow up Plan Referrals: SHANE MOE [ Not on Staff] - 7 Days (please see your MD in 7 days) Disposition: HOME Quality - Care Measures CORE MEASURES:: N/A
--- NOTE | 2020-08-13 08:14 | PQF ---
CLINICAL DOCUMENTATION CLARIFICATION FORM: Dear Dr. Khan Date: 08/13/2020 Please exercise your independent, professional judgment in responding to the clarification form. Clinical indicators are provided on the bottom of this form for your review. Please check appropriate box(s): [ ] Demand Ischemia with Type 2 Myocardial Infarction secondary to: [ ] Heart Failure [ ]: Arrhythmia [ ] other: [ ] Demand Ischemia without Myocardial infarction [ x] Other diagnosis _Elevated troponin due to recent ablation [ ] Unable to determine In addition, please specify: Present on Admission (POA): [ ] Yes [ ] No [ ] Unable to determine For continuity of documentation, please document condition throughout progress notes and discharge summary. Thank You. CLINICAL INDICATORS - SIGNS / SYMPTOMS / LABS / RESULTS AND LOCATION IN EMR *LAB 08/08 (EMR): Troponin I 1734 1.932 2050 1.564 2337 1.541 *ED 08/08: Patient had an ablation done for atrial fibrillation on Thursday He was developing shortness of breath before he left. *H&P 08/09 (Karen-Miguel): Elevated tropoinin? Rule out acute coronary syndrome, but patient just underwent ablation. Currently, patient denies chest pain. *Consultation 08/09 (): * MB was 9.9 with troponin 1.9, decreased down to 1.5, It is not indicative of myocardial infarction, but it was most likely due to the ablation. * He has no complaints and he denied any chest pain to me and he mainly complains of shortness of breath and the cough. *PN 08/10 (Camilo): * Type 2 acute myocardial infarction * Likely demand ischemia in conjunction with recent ablation. RISK FACTORS / RESULTS AND LOCATION IN EMR *ED 08/08: A fib treated with an ablation *H&P 08/09 (Karen-Miguel): Past medical history . Hypertension *PN 08/09 (Camilo): Acute CHF TREATMENTS / RESULTS AND LOCATION IN EMR *ED 08/08: Furosemide IV, BiPAP *H&P 08/09 (Roseline-Miguel): Admit to IMCU. Telemetry monitoring. Continue with BiPAP. We will start on IV diuretics. Serial troponins Consult patients park ranger . *Reports 08/08 (EMR): Electrocardiotgram *MAR (EMR): Aspirin PO 08/09-08/12, Lasix IVP 0600/1400 , Lisinopril BID , Atenolol BID Thank you, Ashtyn CDS/Home Delivery Driver Signature: Ashtyn Bennett RN, CDS Phone #: [phone] [email or web address] This is a permanent part of the Medical Record [facility]
--- NOTE | 2020-08-15 03:43 | PQF ---
Dear : Kevin Khan Date 08/15/20 Please exercise your independent, professional judgment in responding to the clarification form. Clinical indicators are provided on the bottom of this form for your review Can you please further clarify the diagnosis of the patient? Please check appropriate box(es): [ ] Sepsis due to: Pneumonia [ ] Severe sepsis [ x ] Localized infection without sepsis [ ] Other diagnosis please specify [ ] Unable to determine Physician Signature: SERENITY Date/Time:08/15/20. 12:20pm For continuity of documentation, please document condition throughout progress notes and discharge summary. Thank You. To be completed by CDI/Coding staff for physician review: Present Clinical Indicators - Signs / Symptoms / Labs Results and Location in Medical Record [ x ] Reports Cough, shortness of breath ED Provider pg.1 [ x ] Hypoxic ED Provider pg.3 [ x ] tachypneic ED Provider pg.3 [ x ] His chest X ray shows a right sided pneumonia ED Provider pg.3 [ x ] Acute hypoxic respiratory failure ED Provider pg.4 [ x ] In ER, septic work up done H and P pg.1 [ x ] WBC: 18.0H, 15.7H, 12.3H, 9.4 Laboratory [ x ] Blood culture no growth in 5 days Microbiology 08/08 [ x ] Temp=98.4 Pulse=90 Respi=20 EO=882/78 Vital Signs 08/09 [ x ] Lactic Acid=1.6 Laboratory 08/08 Present Risk Factors Results and Location in Medical Record [ x ] 75 years old H and P pg.1 [ x ] Former smoker H and P pg.1 [ x ] Pneumonia H and P pg.2 [ x ] CHF exacerbation Hospitalist PN pg.1 Present Treatments Results and Location in Medical Record [ x ] BiPAP H and P pg.3 [ x ] IV Fluids MAR [ x ] Chest Xray Chest Xray 08/08 [ x ] Blood culture Microbiology 08/08 [ x ] Rocephin 2gm IV MAR [ x ] Azithromycin 500 mg IV MAR [ x ] Levaquin 750mg IV MAR [ x ] Sepsis protocol initiated H and P pg.1 CDS/Automatic Buffing Wheel Former Signature: Natanael Guidohéctorjavon Phone #: ext [phone] Date 08/15/20 [id number]
== END 2020-08-12 15:55 | disposition home or self-care (01) | DRG 291 ==
LOC: ERS 17:19 → ERHOLD 19:45 → 2NO 20:07
PROVIDERS: ADMIT Internal Medicine; ATTEND Internal Medicine
PROC: 4A0234Z Measurement of Cardiac Electrical Activity, Percutaneous Approach (ICD-10-PCS; 2020-08-06)
PROC: 5A09357 Assistance with Respiratory Ventilation, Less than 24 Consecutive Hours, Continuous Positive Airway Pressure (ICD-10-PCS; principal; 2020-08-08)
PROC: B24BZZZ Ultrasonography of Heart with Aorta (ICD-10-PCS; 2020-08-09)
DX: I11.0 Hypertensive heart disease with heart failure (principal); J96.01 Acute respiratory failure with hypoxia; J15.9 Unspecified bacterial pneumonia; I48.92 Unspecified atrial flutter; I50.33 Acute on chronic diastolic (congestive) heart failure; Z20.828 Contact with and (suspected) exposure to other viral communicable diseases; E78.5 Hyperlipidemia, unspecified; I48.0 Paroxysmal atrial fibrillation; E87.6 Hypokalemia; E78.00 Pure hypercholesterolemia, unspecified; Z88.5 Allergy status to narcotic agent; Z79.899 Other long term (current) drug therapy; Z79.01 Long term (current) use of anticoagulants; Z87.891 Personal history of nicotine dependence; I10 Essential (primary) hypertension; M19.90 Unspecified osteoarthritis, unspecified site; G89.29 Other chronic pain; M54.9 Dorsalgia, unspecified; F32.9 Major depressive disorder, single episode, unspecified; F43.10 Post-traumatic stress disorder, unspecified
CPT/HCPCS: 36415; 36416; 71045; 76942; 80048; 80053; 82550; 82553; 83605; 83735; 83880; 84132; 84484; 85025; 85347; 87040; 93005; 93010; 93306; 93613; 93622; 93623; 93656; 93657; 93662; 94660; 94760; 96365; 96367; 96375; C1732; C1759; G0378; J0456; J0696; J1644; J1940; J1956; J2370; J2704; J2720; J3010; J3475; J7050; U0002

== ENCOUNTER 2022-04-21 09:33 | Outpatient (CLI) | payer MEDICARE ==
[~2022-04-21 09:33] MED LIST changes: -FLU VACC TS2017-18 (>65YR) 0.5 ML SYRINGE IM ONE; +Iopamidol 370 76% 100 ML VIAL ONE
== END 2022-04-21 09:34 | disposition home or self-care (01) ==
LOC: CT 09:33
PROVIDERS: ATTEND Internal Medicine Cardiovascular Disease
DX: I77.810 Thoracic aortic ectasia (principal); J44.9 Chronic obstructive pulmonary disease, unspecified; I71.2 Thoracic aortic aneurysm, without rupture; N28.1 Cyst of kidney, acquired; K76.9 Liver disease, unspecified; R59.0 Localized enlarged lymph nodes; R91.8 Other nonspecific abnormal finding of lung field
CPT/HCPCS: 71275; 82565; Q9967

== ENCOUNTER 2022-06-18 12:03 | Outpatient (CLI) | payer MEDICARE ==
[2022-06-18 13:57] LABS: #Basophils 0.1 10x3/uL (0.0-0.2); #Eosinphils 0.3 10x3/uL (0.0-0.5); #Monocytes 0.8 10x3/uL (0.0-1.1); #Neutrophils 5.5 10x3/uL (1.5-8.4); %Basophils 0.6 % (0.0-2.0); %Eosinophils 3.1 % (0.0-6.0); %Lymphocytes 20.1 % (18.0-47.0); %Monocytes 9.3 % (0.0-10.0); %Neutrophils 66.7 % (40.0-75.0); Hemoglobin 14.1 g/dL (13.5-17.5); Mean Corpuscular Hemoglobin 31.8 pg (27.0-33.0); Mean Corpuscular Volume 93.5 fl (81.2-95.1); Mean Platelet Volume 9.9 fl (7.4-10.4); Platelet Count 231 10x3/uL (150-450); RBC Distribution Width 12.4 % (11.5-14.5); Red Blood Cell (RBC) Count 4.44 10x6/uL (4.32-5.72); White Blood Cell (WBC) Count 8.3 10x3/uL (3.5-10.5)
[2022-06-18 14:10] LABS: ALT (SGPT) 18 U/L (8-55); AST (SGOT) 24 U/L (5-34); Albumin 4.2 g/dL (3.4-4.8); Alkaline Phosphatase 56 U/L (40-110); Anion Gap 16 mmol/L (10-20); BUN (Urea Nitrogen) 17 mg/dL (8.4-25.7); Bilirubin, Total 0.5 mg/dL (0.2-1.2); Calc. Creatinine Clearance 0 mL/min (70-130); Calcium 9.9 mg/dL (7.8-10.44); Carbon Dioxide 25 mmol/L (23-31); Chloride 103 mmol/L (98-107); Estimated GFR 91; Globulin 3.1 g/dL (2.4-3.5); Glucose 107 mg/dL (83-110); Potassium 4.6 mmol/L (3.5-5.1); Protein, Total 7.3 g/dL (5.8-8.1); Sodium 139 mmol/L (136-145)
== END 2022-06-18 12:04 | disposition home or self-care (01) ==
LOC: LABBT 12:03
PROVIDERS: ATTEND Surgery
DX: Z01.812 Encounter for preprocedural laboratory examination (principal); C43.61 Malignant melanoma of right upper limb, including shoulder; Z20.822 Contact with and (suspected) exposure to COVID-19
CPT/HCPCS: 80053; 85025; 87811

== ENCOUNTER 2022-08-11 10:18 | Outpatient (CLI) | payer MEDICARE | END 2022-08-11 10:19 | disposition home or self-care (01) | LOC: CT 10:18 | PROVIDERS: ATTEND Internal Medicine | DX: R91.8 Other nonspecific abnormal finding of lung field (principal); J43.8 Other emphysema; I51.5 Myocardial degeneration; N28.1 Cyst of kidney, acquired; K76.89 Other specified diseases of liver; I71.21 Aneurysm of the ascending aorta, without rupture | CPT/HCPCS: 71250 ==

== ENCOUNTER 2022-12-29 08:52 | Outpatient (CLI) | payer MEDICARE ==
[2022-12-29] MEDS ORDERED: Iopamidol 370 76% 100 ML VIAL ONE (09:53)
== END 2022-12-29 08:53 | disposition home or self-care (01) ==
LOC: BICCT 08:52
PROVIDERS: ATTEND Internal Medicine Cardiovascular Disease
DX: I71.20 Thoracic aortic aneurysm, without rupture, unspecified (principal)
CPT/HCPCS: 71275; Q9967

== ENCOUNTER 2023-01-16 12:19 | Outpatient (CLI) | payer MEDICARE | END 2023-01-16 12:20 | disposition home or self-care (01) | LOC: CT 12:19 | PROVIDERS: ATTEND Psychiatry & Neurology Neurology | DX: R41.3 Other amnesia (principal); G93.89 Other specified disorders of brain | CPT/HCPCS: 70450 ==

== ENCOUNTER 2023-11-02 09:53 | Outpatient (CLI) | payer MEDICARE ==
[2023-11-02 10:57] LABS: #Basophils 0.1 10x3/uL (0.0-0.2); #Eosinphils 0.3 10x3/uL (0.0-0.5); #Neutrophils 6.3 10x3/uL (1.5-8.4); %Basophils 0.7 % (0.0-2.0); %Eosinophils 3.4 % (0.0-6.0); %Lymphocytes 18.8 % (18.0-47.0); %Monocytes 10.5 % (0.0-10.0); %Neutrophils 66.3 % (40.0-75.0); Hematocrit 44.1 % (38.8-50.0); Mean Corpuscular Hemoglobin 32.1 pg (27.0-33.0); Mean Corpuscular Volume 94.2 fl (81.2-95.1); Mean Platelet Volume 9.7 fl (7.4-10.4); Platelet Count 241 10x3/uL (150-450); RBC Distribution Width 12.4 % (11.5-14.5); Red Blood Cell (RBC) Count 4.68 10x6/uL (4.32-5.72); White Blood Cell (WBC) Count 9.5 10x3/uL (3.5-10.5)
[2023-11-02 11:19] LABS: Anion Gap 13 mmol/L (10-20); BUN (Urea Nitrogen) 18 mg/dL (8.4-25.7); Calc. Creatinine Clearance 0 mL/min (70-130); Calcium 9.4 mg/dL (7.8-10.44); Carbon Dioxide 29 mmol/L (23-31); Chloride 102 mmol/L (98-107); Estimated GFR 80; Glucose 90 mg/dL (83-110); Potassium 4.1 mmol/L (3.5-5.1); Sodium 140 mmol/L (136-145)
== END 2023-11-02 09:54 | disposition home or self-care (01) ==
LOC: LABBT 09:53
PROVIDERS: ATTEND Orthopaedic Surgery
DX: Z01.818 Encounter for other preprocedural examination (principal); T84.098A Other mechanical complication of other internal joint prosthesis, initial encounter
CPT/HCPCS: 80048; 85025; 93005; 93010

== ENCOUNTER 2023-11-02 10:00 | Inpatient (IN) | payer MEDICARE ==
[2023-11-05] MEDS ORDERED: Tranexamic Acid 1,000 MG/10 ML VIAL ONE (08:01)
[2023-11-05] MEDS ORDERED: Sodium Chloride 0.9% 100 ML ONE ×2 (08:01→09:27)
[2023-11-05] MEDS ORDERED: Vancomycin (BATCH) 1.5 GM/300 ML BAG ONE (08:02)
[2023-11-05] MEDS ORDERED: Midazolam HCl 2 mg/2 ml Vial ONE (08:21)
[2023-11-05] MEDS ORDERED: fentaNYL 50 mcg/mL 1 mL Vial ONE (08:21)
[2023-11-05] MEDS ORDERED: Ropivacaine 0.5% HCl/PF (150 MG/30 ML VIAL) ONE (08:22)
[2023-11-05] MEDS ORDERED: Ropivacaine 0.2% HCl/PF 20 ML ONE (08:22)
[2023-11-05] MEDS ORDERED: Ondansetron PF 4 MG/2 ML Vial ONE (09:17)
[2023-11-05] MEDS ORDERED: Dexamethasone 20 MG/5 ML VIAL ONE (09:17)
[2023-11-05] MEDS ORDERED: Rocuronium Bromide 10 MG/ML (10ML VIAL) ONE (09:17)
[2023-11-05] MEDS ORDERED: Lidocaine 1% PF 5 ML VIAL ONE (09:17)
[2023-11-05] MEDS ORDERED: PROPOFOL 20 ML ONE (09:17)
[2023-11-05] MEDS ORDERED: fentaNYL PF 100 MCG/2 ML SYRINGE ONE (09:17)
[2023-11-05] MEDS ORDERED: CEFAZOLIN 2 GM VIAL ONE (09:26)
[2023-11-05] MEDS ORDERED: ePHEDrine Sulfate 50 MG/10 ML VIAL ONE (10:10)
[2023-11-05] MEDS ORDERED: fentaNYL 50 mcg/mL 1 mL Vial SLOW IVP PRN (10:12)
[2023-11-05] MEDS ORDERED: traMADol HCl 50 MG TAB PO PRN ×2 (10:15)
[2023-11-05] MEDS ORDERED: Zolpidem Tartrate 5 MG TAB PO PRN (10:15)
[2023-11-05] MEDS ORDERED: Ropivacaine 0.2% 550 ML 550 ML NERVE BLCK SCH (10:15)
[2023-11-05] MEDS ORDERED: HYDROcodone/Acetaminophen 10/325 mg Tablet PO PRN (10:15)
[2023-11-05] MEDS ORDERED: Promethazine HCl 25 MG/ML VIAL IM PRN (10:15)
[2023-11-05] MEDS ORDERED: Ondansetron PF 4 MG/2 ML Vial IVP PRN (10:15)
[2023-11-05] MEDS ORDERED: SUGAMMADEX SODIUM 200 MG/2 ML VIAL ONE (11:29)
[2023-11-05] MEDS ORDERED: Benzonatate 100 MG CAP PO PRN (11:39)
[2023-11-05] MEDS ORDERED: Methocarbamol 500 MG TAB PO PRN (12:01)
[2023-11-05] MEDS: Ketorolac Tromethamine 30 MG (1 mL) VIAL IVP SCH (15:34)
[2023-11-05] MEDS: Sodium Chloride 0.9% 1,000 ML IV SCH (15:34)
[2023-11-05] MEDS: CEFAZOLIN 2 GM in Sodium Chloride 0.9% 100 ML IVPB SCH (17:52)
[2023-11-05 18:02] VITALS: BMI 30.4
[2023-11-05] MEDS: Gabapentin 300 MG CAP PO SCH (21:19)
[2023-11-05] MEDS: Atenolol 50 MG TAB PO SCH (21:19)
[2023-11-05] MEDS: Atorvastatin Calcium 10 MG TAB PO SCH (21:19)
[2023-11-05] MEDS: Lisinopril 20 MG TAB PO SCH (21:22)
[2023-11-06] MEDS: Multivit, Therapeutic 1 TAB PO SCH (09:35)
[2023-11-06] MEDS: Tamsulosin HCl 0.4 MG CAP PO SCH (09:35)
[2023-11-06] MEDS: Loratadine 10 MG TAB PO SCH (09:36)
[2023-11-06] MEDS: Hydrochlorothiazide 25 MG TAB PO SCH (09:36)
[2023-11-06 11:26] VITALS: TEMP 98.5
[2023-11-06] MEDS: Potassium Chloride 8 MEQ TAB PO SCH (11:36)
[2023-11-06] MEDS: HYDROcodone/Acetaminophen 10/325 mg Tablet PO PRN (12:42)
[2023-11-06 14:22] VITALS: BP 123/72
[2023-11-06] MEDS ORDERED: Apixaban 5 MG TAB PO SCH (21:00)
[2023-11-12] MEDS ORDERED: SEMAGLUTIDE 2.4 MG/0.75 ML SC SCH (09:00)
== END 2023-11-06 13:12 | disposition home or self-care (01) | DRG 483 ==
LOC: SURG A 11-05 07:06 → EDSTATUS 11-05 10:00 → SJJU 11-05 14:47
PROVIDERS: ADMIT Orthopaedic Surgery; ATTEND Orthopaedic Surgery
PROC: 0RRK0JZ Replacement of Left Shoulder Joint with Synthetic Substitute, Open Approach (ICD-10-PCS; principal; 2023-11-05)
PROC: 0RPK0JZ Removal of Synthetic Substitute from Left Shoulder Joint, Open Approach (ICD-10-PCS; 2023-11-05)
PROC: 3E033XZ Introduction of Vasopressor into Peripheral Vein, Percutaneous Approach (ICD-10-PCS; 2023-11-05)
DX: T84.098A Other mechanical complication of other internal joint prosthesis, initial encounter (principal); M75.102 Unspecified rotator cuff tear or rupture of left shoulder, not specified as traumatic; E78.00 Pure hypercholesterolemia, unspecified; I48.91 Unspecified atrial fibrillation; Z96.612 Presence of left artificial shoulder joint; Z98.890 Other specified postprocedural states
CPT/HCPCS: A4306; C1713; C1776; J1100; J1885; J2250; J2405; J2704; J2795; J3010; J3370; J3490; J7050

== ENCOUNTER 2023-12-16 08:54 | Outpatient (CLI) | payer MEDICARE ==
[2023-12-16] MEDS ORDERED: Iopamidol 370 76% 100 ML VIAL ONE (10:03)
== END 2023-12-16 08:55 | disposition home or self-care (01) ==
LOC: BICCT 08:54
PROVIDERS: ATTEND Internal Medicine Cardiovascular Disease
DX: R91.1 Solitary pulmonary nodule (principal); I71.21 Aneurysm of the ascending aorta, without rupture; J98.4 Other disorders of lung
CPT/HCPCS: 71275; 82565; Q9967

== ENCOUNTER 2024-06-14 10:37 | Outpatient (CLI) | payer MEDICARE | END 2024-06-14 10:38 | disposition home or self-care (01) | LOC: MRI 10:37 | PROVIDERS: ATTEND Surgery | DX: M47.816 Spondylosis without myelopathy or radiculopathy, lumbar region (principal); M47.815 Spondylosis without myelopathy or radiculopathy, thoracolumbar region; M47.817 Spondylosis without myelopathy or radiculopathy, lumbosacral region; M48.05 Spinal stenosis, thoracolumbar region; M48.061 Spinal stenosis, lumbar region without neurogenic claudication; M48.07 Spinal stenosis, lumbosacral region; Z98.890 Other specified postprocedural states | CPT/HCPCS: 72148 ==

== ENCOUNTER 2024-08-24 08:36 | Outpatient (CLI) | payer MEDICARE | END 2024-08-24 08:37 | disposition home or self-care (01) | LOC: CT 08:36 | PROVIDERS: ATTEND Surgery | DX: M48.061 Spinal stenosis, lumbar region without neurogenic claudication (principal); M47.816 Spondylosis without myelopathy or radiculopathy, lumbar region; M51.26 Other intervertebral disc displacement, lumbar region; Z98.890 Other specified postprocedural states | CPT/HCPCS: 72131 ==

== ENCOUNTER 2024-10-21 09:36 | Outpatient (CLI) | payer MEDICARE | END 2024-10-21 09:37 | disposition home or self-care (01) | LOC: LABBT 09:36 | PROVIDERS: ATTEND Surgery | DX: Z01.818 Encounter for other preprocedural examination (principal); M48.062 Spinal stenosis, lumbar region with neurogenic claudication; M43.16 Spondylolisthesis, lumbar region; S32.009K Unspecified fracture of unspecified lumbar vertebra, subsequent encounter for fracture with nonunion; Z98.1 Arthrodesis status | CPT/HCPCS: 93005; 93010 ==